=== PATIENT | female | born 1945 | race Caucasian/White ===

== ENCOUNTER → 2016-08-30 | Outpatient (CLI) | payer OTHER ==
[~2016-08-30] MED LIST: ALBUAER9 INH; DICL-201 PO; IBUP-1050 PO; LEVO75TA PO; LISI-461 PO; OXYC-57 PO; SYN75 PO; VNTHFA/IN INH
[2016-08-30 12:37] LABS: BLOOD UREA NITROGEN 6 mg/dl (7-18); BUN/CREATININE RATIO 7.2 (10-20); CARBON DIOXIDE 29 mmol/L (21-32); CHLORIDE 109 mmol/L (98-107); CREATININE 0.78 mg/dl (0.60-1.20); GLUCOSE 125 mg/dl (70-99); POTASSIUM 3.4 mmol/L (3.5-5.1); SODIUM 144 mmol/L (136-145)
[2016-08-30 12:38] LABS: ALT/SGPT 34 U/L (12-78); CALCIUM 8.8 mg/dl (8.5-10.1); CHOLESTEROL 210 mg/dl (0-200); TRIGLYCERIDES 91 mg/dl (0-150); VERY LOW DENSITY LIPOPROT CALC 18 mg/dl
[2016-08-30 12:47] LABS: RATIO 5.1 mcg/mg (0-30.0)
[2016-08-30 12:48] LABS: ALB/GLOB RATIO 0.7 (0.9-2); ALKALINE PHOSPHATASE 133 U/L (45-117); AST/SGOT 46 U/L (15-37); CHOLESTEROL/HDL RATIO 4.7; HDL CHOLESTEROL 45 mg/dl; LDL CHOLESTEROL CALCULATED 147 mg/dl
[2016-08-30 13:57] LABS: ESTIMATED AVERAGE GLUCOSE 154 mg/dl; HA1C FLAG Normal (Normal)
== END | disposition home or self-care (01) ==
LOC: C.LAB 10:55
PROVIDERS: ATTEND Internal Medicine
DX: E11.9 Type 2 diabetes mellitus without complications (principal); E03.9 Hypothyroidism, unspecified; E55.9 Vitamin D deficiency, unspecified

== ENCOUNTER 2016-12-10 14:36 | Emergency (ER) | payer OTHER ==
[~2016-12-10] VITALS: Ht 167.6 cm; Wt 101.3 kg
[~2016-12-10 14:36] MED LIST changes: -IBUP-1050 PO; -OXYC-57 PO; -SYN75 PO; -VNTHFA/IN INH
[2016-12-10 14:43] VITALS: TEMP 36.7; Ht 167.6 cm; Wt 101.3 kg
--- NOTE | 2016-12-10 16:59 | EMERGENCY ROOM VISIT NOTE ---
ED Visit Note First contact with patient: 16:35 I have seen and examined this patient with Hoda Palomo and generally agree with the treatment plan as discussed. Problem List Medical Problems: (1) Asthma Status: Chronic Surgical Problems: (1) History of back surgery Status: Resolved (2) History of cholecystectomy Status: Resolved (3) History of hysterectomy Status: Resolved Current/Historical Medications Scheduled Diclofenac (Voltaren), 75 MG PO BID Levothyroxine Sodium (Synthroid), 75 MCG PO DAILY Lisinopril (Zestril), 10 MG PO DAILY Scheduled PRN Albuterol Sulfate (Proventil Hfa), 1-2 PUFFS INH q4-6h PRN for SOB/Wheezing Allergies Coded Allergies: Adhesives (Verified Allergy, Unknown, TAPE ALLERGY, 02/05/15) Sulfa Antibiotics (Verified Allergy, Unknown, UNKNOWN, 02/05/15) Vital Signs Date Time Temp Pulse Resp B/P (MAP) Pulse Ox O2 Delivery O2 Flow Rate FiO2 12/10/16 14:43 36.7 72 20 212/104 98 Room Air Departure Information Referrals RV. Kaplan MD (PCP) Patient Instructions My [facility]
[2016-12-10] MEDS ORDERED: VNTHFA/IN INH (17:13)
[2016-12-10] MEDS ORDERED: IBUP-1050 PO (17:13)
[2016-12-10] MEDS ORDERED: SYN75 PO (17:13)
--- NOTE | 2016-12-10 17:27 | EMERGENCY ROOM VISIT NOTE ---
History First contact with patient: 16:35 Chief Complaint: SWELLING TO EXTREMITY Stated Complaint: SWELLING TO RT FOOT-FELL ON THURSDAY History of Present Illness The patient is a 71 year old female who presents to the Emergency Room with complaints of left knee pain, right lower leg pain and right ankle pain for approximately last week. The patient had a mechanical fall where she tripped up the steps injuring her left knee and right delong. She also notes swelling to the area since. The patient has a history of bilateral knee replacements. This was many years ago. She sometimes does have issues with her knees giving out. She also reports hitting her right elbow. She denies any symptoms before she fell such as dizziness, lightheadedness, chest pain, heart palpitations or shortness of breath. She has been taking ibuprofen with minimal relief of the pain. The patient did not hit her head during the fall. Review of Systems 10 system review performed and negative unless noted in HPI or below Past Medical/Surgical History Medical Problems: (1) Asthma (2) Hypertension Nos (3) Hypothyroidism Nos (4) Lumbago Surgical Problems: (1) History of back surgery (2) History of cholecystectomy (3) History of hysterectomy Family History Cancer FH: heart disease FHx: gallbladder disease FHx: lung disease Hypertension Social History Smoking Status: Never Smoker Alcohol Use: occasionally Drug Use: none Marital Status: Housing Status: lives alone Occupation Status: employed Current/Historical Medications Scheduled Albuterol Hfa (Ventolin Hfa), 1-2 PUFFS INH Q4 Ibuprofen (Advil), 400 MG PO PRN UD Levothyroxine Sodium (Synthroid), 75 MCG PO DAILY Scheduled PRN Oxycodone/Acetaminophen 5MG/325MG (Percocet 5MG/325MG), 1-2 TABS PO Q4H PRN for Pain Allergies Coded Allergies: Adhesives (Verified Allergy, Unknown, TAPE ALLERGY, 02/05/15) Sulfa Antibiotics (Verified Allergy, Unknown, UNKNOWN, 02/05/15) Physical Exam Vital Signs Date Time Temp Pulse Resp B/P (MAP) Pulse Ox O2 Delivery O2 Flow Rate FiO2 12/10/16 18:59 65 16 165/85 98 Room Air NIBP 12/10/16 17:53 65 16 179/85 98 Room Air 12/10/16 17:13 73 20 166/73 94 Room Air 12/10/16 14:43 36.7 72 20 212/104 98 Room Air Physical Exam VITALS: Vitals are noted on the nurse's note and reviewed by myself. Vital signs stable. GENERAL: 71-year-old female, in no acute distress, nondiaphoretic, well- developed well-nourished. SKIN: The skin was intact HEAD: Normocephalic atraumatic. MUSCULOSKELETAL: RLE: Ecchymosis noted over the proximal right tibia. Tenderness to palpation in that area. Edema noted to the right ankle with diffuse tenderness over the lateral and medial malleoli. No ligamentous instability appreciated. DP pulse intact. Negative Agiula's sign. No significant tenderness over the Achilles. LLE: Mild ecchymosis noted to the left knee. No ligamentous instability appreciated. Negative anterior and posterior drawer. No pain with valgus or varus stress. RUE: Small amount of ecchymosis noted to the right elbow. Full range of motion. NEURO: Patient was alert and oriented to person place and time. Normal sensation to touch. No focal neurological deficits. Medical Decision & Procedures ER Provider Diagnostic Interpretation: Patient Name: LUZ ELENA SUN Unit Number: [id number] Dictated: 12/10/161752 Transcribed: 12/10/161752 SHIELA Printed Date/Time: [~ rep prt dt]/[~ rep prt tm] [~ rep ct labl] - [~ rep ct ivnm] [facility] [place] [address] Dictated: 12/10/161752 Transcribed: 12/10/161752 SHIELA Printed Date/Time: [~ rep prt dt]/[~ rep prt tm] [~ rep ct labl] - [~ rep ct ivnm] Patient: LUZ ELENA SUN Address1: [address] [facility] Rec: [id number] Address2: Acct ID: [id number] [facility] Zip: [place] [address] Date: 1945 Sex: F Room/Bed: Ref Phy: RV. Kaplan MD SC: DREA Att Phy: Report #: [id number] Ping Phy: RV. Kaplan MD Test: TF Admit Phy: Tar Chaser: WEI Interpreting Phy: Graeme Mike MD Diagnosis: SWELLING TO RT FOOT-FELL ON THURSDAY Ordering Phy: Hoda Palomo PA-C Service Date: 12/10/16 Admit Date: 12/10/16 MNE: PWRSCRIBE CONF: DICTATED BY: Graeme Mike MD]] CC: RV. Eusebio, MD Cochran, Jamey Dye, Hoda Nava PA-C Endcc: [~ rep ct add3]] RIGHT TIBIA/FIBULA 2 VIEWS ROUTINE CLINICAL HISTORY: Fall. Right mid delong pain. COMPARISON: None FINDINGS: Alignment of the right knee arthroplasty is anatomic. There is no acute fracture within the right tibia or fibula. IMPRESSION: No acute fracture of the right tibia or fibula. Electronically signed by: Graeme Mike M.D. 12/10/2016 5:59 PM Dictated Date/Time: 12/10/2016 5:53 PM The status of this report is Signed. Draft = Not yet reviewed or approved by Radiologist. Signed = Reviewed and approved by Radiologist. <AttendingPhy></AttendingPhy> <FamilyPhy>RV. Kaplan MD</ FamilyPhy> <PrimaryPhy>RV. Kaplan MD</PrimaryPhy> <UnitNumber> [id number]</UnitNumber> <VisitNumber>[id number]</VisitNumber> <PatientName> LUZ ELENA SUN</PatientName> <DateOfBirth>1945</DateOfBirth> <Location> [facility]</Location> <ServiceDate>12/10/16</ServiceDate> <MNE>ESINDI</MNE> < OrderingPhy>Hoda Palomo PA-C</OrderingPhy> <OrderingPhyMNE>f rep ord dr little< /OrderingPhyMNE> <DictatingPhyMNE>f rep dict dr little</DictatingPhyMNE> <CCListMNE >f rep ct mne</CCListMNE> <AdmittingPhyMNE>f pt admit dr little</AdmittingPhyMNE> < AttendingPhyMNE>f pt attend dr little</AttendingPhyMNE> <ConsultingPhyMNE>f pt consult dr little</ConsultingPhyMNE> <FamilyPhyMNE>f pt fam dr little</FamilyPhyMNE> <OtherPhyMNE>f pt other dr little</OtherPhyMNE> < PrimaryPhyMNE>f pt prim care dr little</PrimaryPhyMNE> <ReferringPhyMNE>f pt referring dr little</ReferringPhyMNE> Patient: LUZ ELENA SUN Address1: [address] [facility] Rec: [id number] Address2: Acct ID: [id number] [facility] Zip: [place] [address] Date: 1945 Sex: F Room/Bed: Ref Phy: RV. Kaplan MD SC: DREA Att Phy: Report #: [id number] Ping Phy: RV. Kaplan MD Test: KN3 Admit Phy: Tar Chaser: WEI Interpreting Phy: Graeme Mike MD Diagnosis: SWELLING TO RT FOOT-FELL ON THURSDAY Ordering Phy: Hoda Palomo PA-C Service Date: 12/10/16 Admit Date: 12/10/16 MNE: PWRSCRIBE CONF: DICTATED BY: Graeme Mike MD]] CC: RV. Eusebio, Jamey Booth, Hoda Nava PA-C Endcc: [~ rep ct add3]] LEFT KNEE 3 VIEWS CLINICAL HISTORY: Left knee pain following fall. COMPARISON: None FINDINGS: Alignment of the total left knee arthroplasty is anatomic. There is no periprosthetic fracture. There is a small left knee joint effusion. IMPRESSION: 1. Status post total left knee arthroplasty. No periprosthetic fracture. 2. Small left knee joint effusion. Electronically signed by: Graeme Mike M.D. 12/10/2016 5:53 PM Dictated Date/Time: 12/10/2016 5:52 PM The status of this report is Signed. Draft = Not yet reviewed or approved by Radiologist. Signed = Reviewed and approved by Radiologist. Patient: LUZ ELENA SUN Address1: [address] [facility] Rec: [id number] Address2: Acct ID: [id number] [facility] Zip: [place] [address] Date: 1945 Sex: F Room/Bed: Ref Phy: RV. Kaplan MD SC: DREA Att Phy: Report #: [id number] Ping Phy: RV. Kaplan MD Test: ANK Admit Phy: Tar Chaser: WEI Interpreting Phy: Graeme Mike MD Diagnosis: SWELLING TO RT FOOT-FELL ON THURSDAY Ordering Phy: Hoda Palomo PA-C Service Date: 12/10/16 Admit Date: 12/10/16 MNE: PWRSCRIBE CONF: DICTATED BY: Graeme Mike MD]] CC: RV. Eusebio, Jamey Booth, Hoda Nava PA-C Endcc: [~ rep ct add3]] RIGHT ANKLE MIN 3 VIEWS ROUTINE CLINICAL HISTORY: Right ankle pain following fall. COMPARISON: None FINDINGS: There is extensive posterior and plantar calcaneal spurring. There is no acute fracture. Irregularity of the fibular tip suggests old injury. There may be an os trigonum. IMPRESSION: No acute fracture or dislocation of the right ankle. Electronically signed by: Graeme Mike M.D. 12/10/2016 6:00 PM Dictated Date/Time: 12/10/2016 5:59 PM The status of this report is Signed. Draft = Not yet reviewed or approved by Radiologist. Signed = Reviewed and approved by Radiologist. <AttendingPhy></AttendingPhy> <FamilyPhy>RV. Kaplan MD</ FamilyPhy> <PrimaryPhy>RV. Kaplan MD</PrimaryPhy> <UnitNumber> [id number]</UnitNumber> <VisitNumber>[id number]</VisitNumber> <PatientName> LUZ ELENA SUN</PatientName> <DateOfBirth>1945</DateOfBirth> <Location> DREA</Location> <ServiceDate>12/10/16</ServiceDate> <MNE>ESINDI</MNE> < OrderingPhy>Hoda Palomo PA-C</OrderingPhy> <OrderingPhyMNE>f rep ord dr little< /OrderingPhyMNE> <DictatingPhyMNE>f rep dict dr little</DictatingPhyMNE> <CCListMNE >f rep ct mne</CCListMNE> <AdmittingPhyMNE>f pt admit dr little</AdmittingPhyMNE> < AttendingPhyMNE>f pt attend dr little</AttendingPhyMNE> Patient: LUZ ELENA SUN Address1: [address] [facility] Rec: [id number] Address2: Acct ID: [id number] [facility] Zip: [place] [address] Date: 1945 Sex: F Room/Bed: Ref Phy: RV. Kaplan MD SC: DREA Att Phy: Report #: [id number] Ping Phy: RV. Kaplan MD Test: ELB Admit Phy: Tar Chaser: WEI Interpreting Phy: Graeme Mike MD Diagnosis: SWELLING TO RT FOOT-FELL ON THURSDAY Ordering Phy: Hoda Palomo PA-C Service Date: 12/10/16 Admit Date: 12/10/16 MNE: PWRSCRIBE CONF: DICTATED BY: Graeme Mike MD]] CC: RV. Eusebio, Jamey Booth MD Urban, Angela P., PA-C Endcc: [~ rep ct add3]] RIGHT ELBOW MIN 3 VIEWS ROUTINE CLINICAL HISTORY: Right elbow pain following fall. COMPARISON: None FINDINGS: Alignment of the right elbow is anatomic. No acute fracture or joint effusion is identified. There is mild soft tissue swelling overlying the olecranon. IMPRESSION: No acute fracture or joint effusion of the right elbow. Electronically signed by: Graeme Mike M.D. 12/10/2016 6:00 PM Dictated Date/Time: 12/10/2016 6:00 PM The status of this report is Signed. Draft = Not yet reviewed or approved by Radiologist. Signed = Reviewed and approved by Radiologist. <AttendingPhy></AttendingPhy> <FamilyPhy>RV. Kaplan MD</ FamilyPhy> <PrimaryPhy>RV. Kaplan MD</PrimaryPhy> <UnitNumber> [id number]</UnitNumber> <VisitNumber>[id number]</VisitNumber ED Course Patient was seen and examined Labs were obtained, and a saline lock was established Vital signs were reviewed. BP was noted to be elevated. The patient was notified of her elevated blood pressure. She was instructed to follow-up with her primary care physician to have this rechecked. The findings of the imaging study were discussed. They voiced understanding. They were offered a walker, knee immobilizer and Kyle bandage. They confirmed that they have a walker and knee immobilizer at home. The right ankle was bandaged for comfort. The patient ambulated without difficulty prior to discharge. I reviewed discharge instructions the patient. They voiced understanding and had no further questions. Medical Decision Differential diagnosis: Hematoma, ecchymosis, contusion, fracture, ligament injury, DVT This patient is a pleasant 71-year-old female that presented to the emergency department with complaints of left knee pain, right lower leg pain and right ankle pain. She did also complain of swelling in the right ankle. She suffered a mechanical fall. On exam, she did have some tenderness and limited range of motion with the left knee. She also had edema and tenderness over the right ankle. She had ecchymosis present over the mid right delong. The elbow was also x-rayed because she was complaining of pain over the olecranon process. All of her imaging was negative for fracture. She did however have a small left knee effusion. It was recommended that she immobilize the knee, and ambulate with a walker and follow-up with orthopedics (especially given her history of knee replacement). The patient is in agreement with this plan. She will use her knee immobilizer at home in addition to her walker. As noted above , the right ankle was placed in an Kyle bandage. She was given a short course of Percocet for the pain. She was also instructed to apply ice and elevate particularly the right ankle. She agrees to return to the emergency department with any new or worsening symptoms. This chart was completed in part utilizing [employer] Speech Voice Recognition software. Attempts were made to minimize the grammatical errors, random word insertions, pronoun errors and incomplete sentences. Any formal questions or concerns about the content, text or information contained within the body of this dictation should be directly addressed to the provider for clarification. Impression Primary Impression: Knee injury Additional Impressions: Ankle sprain Contusion of leg Departure Information Prescriptions Oxycodone/Acetaminophen 5MG/325MG (PERCOCET 5MG/325MG) Tab 1-2 TABS PO Q4H Y for Pain, #15 TAB Prov: Hoda Palomo PA-C 12/10/16 Referrals RV. Kaplan MD (PCP) Patient Instructions My [facility] Problem Qualifiers
--- NOTE | 2016-12-10 17:54 | DIAGNOSTIC IMAGING REPORT ---
LEFT KNEE 3 VIEWS CLINICAL HISTORY: Left knee pain following fall. COMPARISON: None FINDINGS: Alignment of the total left knee arthroplasty is anatomic. There is no periprosthetic fracture. There is a small left knee joint effusion. IMPRESSION: 1. Status post total left knee arthroplasty. No periprosthetic fracture. 2. Small left knee joint effusion. Electronically signed by: Graeme Mike M.D. 12/10/2016 5:53 PM Dictated Date/Time: 12/10/2016 5:52 PM
--- NOTE | 2016-12-10 18:00 | DIAGNOSTIC IMAGING REPORT ---
RIGHT TIBIA/FIBULA 2 VIEWS ROUTINE CLINICAL HISTORY: Fall. Right mid delong pain. COMPARISON: None FINDINGS: Alignment of the right knee arthroplasty is anatomic. There is no acute fracture within the right tibia or fibula. IMPRESSION: No acute fracture of the right tibia or fibula. Electronically signed by: Graeme Mike M.D. 12/10/2016 5:59 PM Dictated Date/Time: 12/10/2016 5:53 PM
--- NOTE | 2016-12-10 18:01 | DIAGNOSTIC IMAGING REPORT ---
RIGHT ANKLE MIN 3 VIEWS ROUTINE CLINICAL HISTORY: Right ankle pain following fall. COMPARISON: None FINDINGS: There is extensive posterior and plantar calcaneal spurring. There is no acute fracture. Irregularity of the fibular tip suggests old injury. There may be an os trigonum. IMPRESSION: No acute fracture or dislocation of the right ankle. Electronically signed by: Graeme Mike M.D. 12/10/2016 6:00 PM Dictated Date/Time: 12/10/2016 5:59 PM
--- NOTE | 2016-12-10 18:02 | DIAGNOSTIC IMAGING REPORT ---
RIGHT ELBOW MIN 3 VIEWS ROUTINE CLINICAL HISTORY: Right elbow pain following fall. COMPARISON: None FINDINGS: Alignment of the right elbow is anatomic. No acute fracture or joint effusion is identified. There is mild soft tissue swelling overlying the olecranon. IMPRESSION: No acute fracture or joint effusion of the right elbow. Electronically signed by: Graeme Mike M.D. 12/10/2016 6:00 PM Dictated Date/Time: 12/10/2016 6:00 PM
[2016-12-10 18:59] VITALS: BP 165/85; PULSE 65; O2SAT 98
[2016-12-10] MEDS ORDERED: OXYC-57 PO (19:09)
== END 2016-12-10 19:21 | disposition home or self-care (01) ==
LOC: C.EDB 14:42 → C.EDA 19:21
DX: S89.92XA Unspecified injury of left lower leg, initial encounter (principal); S93.401A Sprain of unspecified ligament of right ankle, initial encounter; S80.11XA Contusion of right lower leg, initial encounter; W10.9XXA Fall (on) (from) unspecified stairs and steps, initial encounter; Z96.653 Presence of artificial knee joint, bilateral; J45.909 Unspecified asthma, uncomplicated; I10 Essential (primary) hypertension; E03.9 Hypothyroidism, unspecified; Z90.710 Acquired absence of both cervix and uterus; Z90.49 Acquired absence of other specified parts of digestive tract; Z98.890 Other specified postprocedural states; Z82.49 Family history of ischemic heart disease and other diseases of the circulatory system; Z79.899 Other long term (current) drug therapy

== ENCOUNTER → 2017-01-08 | Outpatient (CLI) | payer OTHER ==
[~2017-01-08] MED LIST changes: -ALBUAER9 INH; -DICL-201 PO; +IBUP-1050 PO; -LISI-461 PO; +OXYC-57 PO; +VNTHFA/IN INH
[2017-01-08 12:22] LABS: ESTIMATED AVERAGE GLUCOSE 148 mg/dl; HA1C FLAG Normal (Normal)
[2017-01-08 12:25] LABS: ALT/SGPT 33 U/L (12-78); AST/SGOT 33 U/L (15-37); BLOOD UREA NITROGEN 8 mg/dl (7-18); CALCIUM 8.5 mg/dl (8.5-10.1); CARBON DIOXIDE 26 mmol/L (21-32); CHLORIDE 111 mmol/L (98-107); CREATININE 0.75 mg/dl (0.60-1.20); GLUCOSE 115 mg/dl (70-99); POTASSIUM 3.5 mmol/L (3.5-5.1); SODIUM 143 mmol/L (136-145); TRIGLYCERIDES 92 mg/dl (0-150); VERY LOW DENSITY LIPOPROT CALC 18 mg/dl
[2017-01-08 12:36] LABS: ALB/GLOB RATIO 0.8 (0.9-2); ALKALINE PHOSPHATASE 117 U/L (45-117); CHOLESTEROL 175 mg/dl (0-200); CHOLESTEROL/HDL RATIO 4.1; HDL CHOLESTEROL 43 mg/dl; LDL CHOLESTEROL CALCULATED 114 mg/dl
[2017-01-08 13:26] LABS: URINE APPEARANCE CLEAR (CLEAR); URINE BILIRUBIN NEG (NEG); URINE COLOR YELLOW; URINE EPITHELIAL CELL AUTO >30 /lpf (0-5); URINE NITRITE NEG (NEG); URINE PH 5.5 (4.5-7.5); URINE SPECIFIC GRAVITY 1.015 (1.000-1.030); UROBILINOGEN NEG (NEG); ZZUR CULT IF INDIC CLEAN CATCH YES
[2017-01-08 13:31] LABS: MANUAL MICROSCOPIC REQUIRED? NO; REVIEW REQ? NO
== END | disposition home or self-care (01) ==
LOC: C.LAB1850 10:45
PROVIDERS: ATTEND Internal Medicine
DX: E11.9 Type 2 diabetes mellitus without complications (principal); E55.9 Vitamin D deficiency, unspecified; E03.9 Hypothyroidism, unspecified

== ENCOUNTER → 2017-01-24 | Outpatient (CLI) | payer OTHER ==
[2017-01-24 15:09] LABS: URINE APPEARANCE CLEAR (CLEAR); URINE BILIRUBIN NEG (NEG); URINE COLOR YELLOW; URINE EPITHELIAL CELL AUTO >30 /lpf (0-5); URINE NITRITE NEG (NEG); URINE SPECIFIC GRAVITY 1.011 (1.000-1.030); UROBILINOGEN NEG (NEG); ZZUR CULT IF INDIC CLEAN CATCH NO
[2017-01-24 15:19] LABS: MANUAL MICROSCOPIC REQUIRED? NO; REVIEW REQ? NO
== END | disposition home or self-care (01) ==
LOC: C.LAB 13:50
PROVIDERS: ATTEND Internal Medicine
DX: N39.0 Urinary tract infection, site not specified (principal)

== ENCOUNTER 2017-03-19 09:28 | Emergency (ER) | payer OTHER ==
[~2017-03-19] VITALS: Ht 167.6 cm; Wt 102.5 kg
[2017-03-19 09:35] VITALS: TEMP 36.9; Ht 167.6 cm; Wt 102.5 kg
[2017-03-19] MEDS ORDERED: OXYC-57 PO ×2 (10:08→10:52)
--- NOTE | 2017-03-19 10:34 | EMERGENCY ROOM VISIT NOTE ---
History Report prepared by Jasiel: Bridgette Hurtado Under the Supervision of: Dr. Jamey Cochran M.D. First contact with patient: 09:43 Chief Complaint: ANKLE PAIN Stated Complaint: RIGHT ANKLE PAIN History of Present Illness The patient is a 71 year old female who presents to the Emergency Room with complaints of constant right ankle pain secondary to fall occurring 3 months ago. The patient tripped going up the stairs in December. She has had pain in the back of her right ankle since this incident. She states that her ankle, "just throbs." She has been walking on this foot and reports that walking seems to exacerbate her pain. The patient rates her pain as a 4/10 in severity. Source of History: patient Onset: 3 months ago Position: ankle (right) Symptom Intensity: 4/10 Quality: other (throbbing) Timing: constant Modifying Factors (Worsening): other (walking) Review of Systems See HPI for pertinent positives & negatives. A total of 10 systems reviewed and were otherwise negative. Past Medical & Surgical Medical Problems: (1) Asthma (2) Hypertension Nos (3) Hypothyroidism Nos (4) Lumbago Surgical Problems: (1) History of back surgery (2) History of cholecystectomy (3) History of hysterectomy Family History Cancer FH: heart disease FHx: gallbladder disease FHx: lung disease Hypertension Social History Smoking Status: Never Smoker Alcohol Use: occasionally Drug Use: none Marital Status: Housing Status: lives alone Occupation Status: employed Current/Historical Medications Scheduled Albuterol Hfa (Ventolin Hfa), 1-2 PUFFS INH Q4 Ibuprofen (Advil), 400 MG PO PRN UD Levothyroxine Sodium (Synthroid), 75 MCG PO DAILY Scheduled PRN Oxycodone/Acetaminophen 5MG/325MG (Percocet 5MG/325MG), 1-2 TABLETS PO Q4H PRN for Pain Oxycodone/Acetaminophen 5MG/325MG (Percocet 5MG/325MG), 1-2 TAB PO Q4H PRN for Pain Allergies Coded Allergies: Adhesives (Verified Allergy, Unknown, TAPE ALLERGY, 03/19/17) Sulfa Antibiotics (Verified Allergy, Unknown, UNKNOWN, 03/19/17) RED SWOLLEN LEGS Physical Exam Vital Signs Date Time Temp Pulse Resp B/P (MAP) Pulse Ox O2 Delivery O2 Flow Rate FiO2 03/19/17 11:24 81 20 186/78 95 03/19/17 10:28 190/70 03/19/17 09:35 36.9 77 20 204/109 94 Room Air Physical Exam GENERAL: Patient is a healthy-appearing well-nourished 71 year old female. HEAD: Normocephalic atraumatic EYES: Ocular movements intact pupils equal and react to light OROPHARYNX mucous membranes are moist no exudates present no erythema or edema present NECK: Supple no nuchal rigidity CHEST: Good equal expansion LUNGS: Clear and equal to auscultation CARDIAC: Normal S1 and S2 ABDOMEN: Soft nontender no guarding BACK: No CVA tenderness EXTREMITIES: No outright evidence of swelling to the right foot. Right foot is NVI, no evidence of cellulitis. NEURO: Patient is following commands and answering questions appropriately. Alert and oriented x3 Cranial Nerves 2-12 grossly intact Medical Decision & Procedures ER Provider Diagnostic Interpretation: Radiology results as stated below per my review and radiologist interpretation: RIGHT ANKLE 3 VIEWS CLINICAL HISTORY: Right ankle pain. FINDINGS: 3 views of the right ankle are compared to study dated 12/10/2016. The skeletal structures are osteopenic. No fracture is seen. The ankle mortise is intact. There are large dorsal and plantar calcaneal enthesophytes. Degenerative spurring is seen along the dorsal aspect of the tarsal bones. There is no significant joint effusion. Mild soft tissue swelling is suggested around the ankle. IMPRESSION: 1. Mild soft tissue swelling with no radiographic evidence of right ankle fracture. 2. Osteopenia, degenerative change, and large heel spurs as above. Electronically signed by: Meng Harper M.D. 03/19/2017 10:38 AM Dictated Date/Time: 03/19/2017 10:37 AM ED Course 0943: Past medical records reviewed. The patient was evaluated in room B9. A complete history and physical examination was performed. 1048: I reassessed the patient at this time. She is feeling better and resting comfortably. I discussed the results and treatment plan with the patient. I answered all pertaining questions that she had. She expressed understanding and verbalized agreement. The patient will be discharged home. Medical Decision Differential diagnosis: Etiologies such as fracture, dislocation, neurovascular compromise, compartment syndrome, soft tissue injury, as well as others were entertained. This is a 71-year-old female who presents emergency department complaining of right ankle pain. The patient is actually tender at the Achilles tendon and appears to have trouble flexing her foot. Based on this I'm concerned the patient may have partial tear of the tendon. I recommended she be placed in a walking boot and use crutches. I also strongly recommended she follow-up with orthopedics as the pain is been on going for 3 weeks. She is requesting pain medication therefore she was given ibuprofen and I will continue her on Percocet. Patient was in agreement with the treatment plan. Medication Reconcilliation Current Medication List: was personally reviewed by me Blood Pressure Screening Patient's blood pressure: Elevated blood pressure Blood pressure disposition: Referred to PCP Impression Primary Impression: Right ankle pain Scribe Attestation The scribe's documentation has been prepared under my direction and personally reviewed by me in its entirety. I confirm that the note above accurately reflects all work, treatment, procedures, and medical decision making performed by me. Departure Information Dispostion Home / Self-Care Prescriptions Oxycodone/Acetaminophen 5MG/325MG (PERCOCET 5MG/325MG) Tab 1-2 TAB PO Q4H Y for Pain, #14 TAB Prov: Jamey Cochran MD 03/19/17 Referrals No Doctor, Assigned (PCP) RV. Kaplan MD Martin, James S., M.D. Forms HOME CARE DOCUMENTATION FORM, IMPORTANT VISIT INFORMATION Patient Instructions Ankle Sprain, ED Crutch Walking, ED RICE, [facility] Additional Instructions Follow up with DR Cain's office You were found to have an elevated blood pressure today (>120 sytolic or >90 diastolic). Per medicare guidelines, you need to follow up with this blood pressure screening with your Primary Care Physician (PCP). For a new PCP call [phone]. You received narcotic or benzodiazepene medication while in the emergency room today. This is an addictive medication that may cause drowziness as well as constipation. Do not drive, operate heavy machinery, or drink alcohol under the influence of this medication. Take 600 mg Ibuprofen every 6 hours Take Percocet for breakthrough pain You have been examined and treated today on an emergency basis only. This is not a substitute for, or an effort to provide, complete comprehensive medical care. It is impossible to recognize and treat all injuries or illnesses in a single emergency department visit. It is therefore important that you follow up closely with your PCP. Call as soon as possible for an appointment. Thank you for your time and consideration. I look forward to speaking with you again soon. Please don't hesitate to call us if you have any questions. Problem Qualifiers Primary Impression: Right ankle pain Chronicity: acute Qualified Codes: M25.571 - Pain in right ankle and joints of right foot
--- NOTE | 2017-03-19 10:40 | DIAGNOSTIC IMAGING REPORT ---
RIGHT ANKLE 3 VIEWS CLINICAL HISTORY: Right ankle pain. FINDINGS: 3 views of the right ankle are compared to study dated 12/10/2016. The skeletal structures are osteopenic. No fracture is seen. The ankle mortise is intact. There are large dorsal and plantar calcaneal enthesophytes. Degenerative spurring is seen along the dorsal aspect of the tarsal bones. There is no significant joint effusion. Mild soft tissue swelling is suggested around the ankle. IMPRESSION: 1. Mild soft tissue swelling with no radiographic evidence of right ankle fracture. 2. Osteopenia, degenerative change, and large heel spurs as above. Electronically signed by: Meng Harper M.D. 03/19/2017 10:38 AM Dictated Date/Time: 03/19/2017 10:37 AM
[2017-03-19 11:24] VITALS: BP 186/78; PULSE 81; O2SAT 95
== END 2017-03-19 11:26 | disposition home or self-care (01) ==
LOC: C.EDB 09:29
DX: M25.571 Pain in right ankle and joints of right foot (principal); I10 Essential (primary) hypertension; E03.9 Hypothyroidism, unspecified; J45.909 Unspecified asthma, uncomplicated; Z90.710 Acquired absence of both cervix and uterus; Z90.49 Acquired absence of other specified parts of digestive tract; Z88.2 Allergy status to sulfonamides; Z91.09 Other allergy status, other than to drugs and biological substances; Z80.9 Family history of malignant neoplasm, unspecified; Z82.49 Family history of ischemic heart disease and other diseases of the circulatory system; Z83.79 Family history of other diseases of the digestive system

== ENCOUNTER → 2017-06-02 | Outpatient (CLI) | payer OTHER ==
--- NOTE | 2017-06-02 15:30 | MAMMOGRAPHY REPORT ---
BILATERAL DIGITAL DIAGNOSTIC MAMMOGRAM TOMOSYNTHESIS WITH CAD AND TARGETED BILATERAL ULTRASOUND: 05/09 CLINICAL HISTORY: 71-year-old woman presents with a two-month history of a lump in the upper inner qu adrant of the right breast, which has now become painful and she describes it as sharp or stabbing pa in. No skin thickening, erythema or nipple discharge. Due for bilateral screening mammography. TECHNIQUE: Bilateral breast tomosynthesis in addition to standard 2D mammography was performed. Curre nt study was also evaluated with a Computer Aided Detection (CAD) system. COMPARISON: Comparison is made to exams dated: 08/10/2015 mammogram - [facility], mammogram, 06/28/2012 mammogram, and 07/08/2012 mammogram - [facility]. BREAST COMPOSITION: There are scattered areas of fibroglandular density in both breasts. FINDINGS: A triangular palpable marker was placed on the skin of the upper inner quadrant of the righ t breast, denoting the palpable lump pointed out by the patient. No obvious mass, asymmetry or area of architectural distortion is seen in the area of palpable concern or elsewhere throughout the remai nder of the right breast. There is a stable focal asymmetry in the upper outer posterior right breas t, which appears similar on all available prior mammograms dating back to at least 07/08/2012, theref ore likely benign. The glandular pattern of the left breast is stable comparing to prior mammograms. There are scattere d benign rounded rim calcifications. In the superior middle one third of the left breast on the MLO tomosynthesis images, there is a possible 8mm nodular asymmetry for which further evaluation with ult rasound was performed. No other suspicious masses, microcalcifications, asymmetries or areas of arch itectural distortion are seen in the left breast. Targeted ultrasound was performed in the area of palpable lump pointed out by the patient, within the 1:30 right breast, 8 cm from the nipple. On palpation, there is a soft 1-2 cm mobile mass. On ultr asound, there is a prominent oval parallel subdermal fat lobule which could represent a normal fat lo bule or a benign mass such as a lipoma. It measures 20.8 x 7.5 x 22.0 mm. No suspicious solid or cy stic mass is seen in the area of palpable concern. Within the left breast, numerous scattered benign cysts and duct ectasia is seen. In particular, there is a benign anechoic simple cyst in the 2:00 l eft breast, 7 cm from the nipple, measuring 5.2 x 3.1 x 4.5 mm. Other prominent areas of focal duct ectasia are seen in the 12:00 left breast and 1:00 left breast, 5 cm from the nipple. No suspicious solid mass is seen in the superior left breast in the area of nodular asymmetry seen mammographically . This most likely represented normal overlapping tissue and fibrocystic change and is considered be nign. IMPRESSION: ACR BI-RADS CATEGORY 2: BENIGN, TARGETED ULTRASOUND ACR BI-RADS CATEGORY 2: BENIGN 1. No suspicious mammographic or targeted sonographic abnormality to explain the lump and pain in th e 1:30 right breast. There is a possible benign lipoma identified on ultrasound, which may Adair re presents a normal prominent fat lobule. Clinical follow-up is therefore recommended, as biopsy of a clinically suspicious mass should not be precluded by negative imaging. 2. A nodular asymmetry in the superior left breast on the MLO tomosynthesis images has no suspicious sonographic correlate and the parenchymal pattern on the 2-D views is similar dating back to 2012, s uggesting benignity. This most likely represented a combination of fibrocystic change and normal ove rlapping tissue. 3. These results and recommendations were discussed with the patient and her granddaughter at the ti me of the exam. Routine screening tomosynthesis mammography is recommended in one year. Approximately 10% of breast cancers are not detected with mammography. A negative mammographic report should not delay biopsy if a clinically suggestive mass is present. Brigitte Bourne M.D. ay/:06/02/2017 11:57:35 Sheet Sorter: Chacha RUSSELL)(Sukhwinder), [facility] letter sent: Normal 1/2 BI-RADS Code: ACR BI-RADS Category 2: Benign Ultrasound BI-RADS: ACR BI-RADS Category 2: Benign
== END | disposition home or self-care (01) ==
LOC: C.MAMM 10:33
PROVIDERS: ATTEND Physician Assistant
DX: N63.12 Unspecified lump in the right breast, upper inner quadrant (principal); N64.4 Mastodynia; N64.89 Other specified disorders of breast

== ENCOUNTER → 2017-07-10 | Outpatient (CLI) | payer OTHER ==
[~2017-07-10] MED LIST changes: +OPTIRAY 320 IV PRN
--- NOTE | 2017-07-10 15:25 | DIAGNOSTIC IMAGING REPORT ---
CT ANGIOGRAPHY OF THE CHEST, PULMONARY EMBOLUS PROTOCOL CLINICAL HISTORY: SOB ON EXERTION, R/O PE COMPARISON STUDY: Chest CT December 07, 2014 and chest radiograph performed earlier today. TECHNIQUE: Following IV administration of 95 mL of Optiray-320, helical axial images of the chest were obtained utilizing the pulmonary embolus protocol. Maximal intensity projections and sagittal and coronal reformats were viewed on an independent 3D workstation. IV contrast was administered without complication. A dose lowering technique was utilized adhering to the principles of ALARA. CT DOSE: 546.14 mGycm FINDINGS: No pulmonary emboli are identified. There is no evidence for thoracic aortic dissection. The heart is mildly enlarged. There is no pericardial effusion. No enlarged thoracic lymph nodes are present. No pneumothorax or pleural effusion is noted. There is no consolidation to suggest pneumonia. No suspicious osseous lesions are present. There is no pneumomediastinum. Visualized portions of the upper abdomen demonstrate enlargement of the lateral segment of the liver. Possible collaterals within the bailey hepatis are noted. IMPRESSION: 1. No pulmonary emboli identified. 2. No acute intrathoracic findings. 3. Mild cardiomegaly. Electronically signed by: Graeme Mike M.D. 07/10/2017 3:23 PM Dictated Date/Time: 07/10/2017 3:16 PM
== END | disposition home or self-care (01) ==
LOC: C.CTS 14:36
PROVIDERS: ATTEND Internal Medicine
DX: Z00.00 Encounter for general adult medical examination without abnormal findings (principal); M79.89 Other specified soft tissue disorders; R06.02 Shortness of breath; R07.89 Other chest pain; Z84.89 Family history of other specified conditions

== ENCOUNTER → 2017-07-10 | Outpatient (CLI) | payer OTHER ==
[~2017-07-10] MED LIST changes: -OPTIRAY 320 IV PRN
--- NOTE | 2017-07-10 10:10 | DIAGNOSTIC IMAGING REPORT ---
CHEST 2 VIEWS ROUTINE HISTORY: R07.89 Chest discomfort [id number] COMPARISON: Chest 02/06/2015. FINDINGS: The lungs are clear. Cardiac silhouette is normal in size. No pleural effusions. No pneumothorax. IMPRESSION: No acute process. Electronically signed by: Randy Cardoso M.D. 07/10/2017 10:09 AM Dictated Date/Time: 07/10/2017 10:06 AM
[2017-07-10 10:44] LABS: CREATININE RANDOM URINE 72.9 mg/dl
[2017-07-10 10:45] LABS: ALBUMIN 3.3 gm/dl (3.4-5.0); ALT/SGPT 31 U/L (12-78); AST/SGOT 35 U/L (15-37); BLOOD UREA NITROGEN 6 mg/dl (7-18); CALCIUM 8.5 mg/dl (8.5-10.1); CARBON DIOXIDE 27 mmol/L (21-32); CREATININE 0.81 mg/dl (0.60-1.20); GLUCOSE 134 mg/dl (70-99); POTASSIUM 3.4 mmol/L (3.5-5.1); SODIUM 143 mmol/L (136-145)
[2017-07-10 10:56] LABS: ALKALINE PHOSPHATASE 111 U/L (45-117); TOTAL PROTEIN 7.3 gm/dl (6.4-8.2)
== END | disposition home or self-care (01) ==
LOC: C.RAD1850 09:34 → EDSTATUS 09:37 → C.RAD1850 09:38
PROVIDERS: ATTEND Internal Medicine
DX: E11.9 Type 2 diabetes mellitus without complications (principal); E55.9 Vitamin D deficiency, unspecified; R07.89 Other chest pain

== ENCOUNTER → 2017-07-12 | Outpatient (CLI) | payer OTHER | END | disposition home or self-care (01) | LOC: C.LAB 11:38 | PROVIDERS: ATTEND Internal Medicine | DX: E11.9 Type 2 diabetes mellitus without complications (principal) ==

== ENCOUNTER → 2018-01-06 | Outpatient (CLI) | payer OTHER ==
[2018-01-06 14:00] LABS: ALBUMIN 3.3 gm/dl (3.4-5.0); ALKALINE PHOSPHATASE 105 U/L (45-117); ALT/SGPT 39 U/L (12-78); AST/SGOT 59 U/L (15-37); BLOOD UREA NITROGEN 6 mg/dl (7-18); CALCIUM 8.9 mg/dl (8.5-10.1); CARBON DIOXIDE 27 mmol/L (21-32); CREATININE 0.76 mg/dl (0.60-1.20); GLUCOSE 120 mg/dl (70-99); POTASSIUM 3.6 mmol/L (3.5-5.1); SODIUM 142 mmol/L (136-145); TOTAL PROTEIN 7.2 gm/dl (6.4-8.2)
[2018-01-06 14:01] LABS: HEMOGLOBIN A1C 6.6 % (4.5-5.6)
== END | disposition home or self-care (01) ==
LOC: C.LAB1850 12:13
PROVIDERS: ATTEND Internal Medicine
DX: E55.9 Vitamin D deficiency, unspecified (principal); E53.8 Deficiency of other specified B group vitamins; E11.9 Type 2 diabetes mellitus without complications

== ENCOUNTER 2019-10-06 08:59 | Observation (INO) ==
[2019-10-06] MEDS ORDERED: ONDANSETRON INJ 2 MG/ML 2 ML VIAL IV STA (09:42)
[2019-10-06] MEDS ORDERED: MECLIZINE HCL 25 MG TAB PO STA (09:42)
[2019-10-06 09:49] LABS: Basophils # (auto) 0.03 K/uL (0-0.2); Basophils % (auto) 0.4 %; Eosinophils # (auto) 0.18 K/uL (0-0.5); Eosinophils % (auto) 2.2 %; Hematocrit (blood only) 43.9 % (37-47); Immature Granulocytes # (auto) 0.01 K/uL (0.00-0.02); Immature Granulocytes % (auto) 0.1 %; Lymphocytes # (auto) 2.36 K/uL (1.2-3.4); Lymphocytes % (auto) 28.9 %; Mean Corpuscular Hemoglobin 33.2 pg (25-34); Mean Corpuscular Hgb Conc 34.2 g/dL (32-36); Mean Corpuscular Volume 97.1 fL (80-100); Mean Platelet Volume 9.5 fL (7.4-10.4); Monocytes # (auto) 0.53 K/uL (0.11-0.59); Monocytes % (auto) 6.5 %; Neutrophils # (auto) 5.05 K/uL (1.4-6.5); Neutrophils % (auto) 61.9 %; Platelet Count 305 K/uL (130-400); RDW Coefficient of Variation 13.5 % (11.5-14.5); RDW Standard Deviation 48.1 fL (36.4-46.3); Red Blood Count 4.52 M/uL (4.2-5.4); White Blood Count 8.16 K/uL (4.8-10.8)
[2019-10-06 09:56] LABS: iSTAT Creatinine 0.6 mg/dl (0.6-1.3); iSTAT Hemoglobin 14.6 g/dl (12.0-16.0); iSTAT Ionized Calcium 1.11 mmol/l (1.12-1.32); iSTAT Potassium 3.8 mmol/L (3.3-5.0)
--- NOTE | 2019-10-06 10:03 | Emergency Department Note ---
History of Present Illness General Chief complaint: Fall Stated complaint: FALLS,DIZZINESS,BILAT KNEE SURG FELL ONTO KNEES Time Seen by Provider: 10/06/19 09:14 Source: patient, RN notes reviewed and old records reviewed Mode of arrival: ambulatory Limitations: no limitations History of Present Illness Provider complaint: multiple falls Onset (ago): month(s) 1 Location: head Radiation: non-radiation Severity: moderate Pain Consistency: + constant Maximum Pain Intensity: 6 Current Pain Intensity: 6 Quality: + aching Relieved By: + immobilization Exacerbated By: + movement Associated symptoms: + other (dizziness); no fever/chills, no seizure and no weakness Treatments prior to arrival: none This is a 74-year-old female who presents emergency department complaining of multiple falls over the past several days. The patient is complaining of right hip pain as well as left arm pain. The patient reports she has been dizzy for the past year and a half. She reports that she will be walking across the street and the dizziness will just hit her out of nowhere. She reports that the dizziness does not seem to be related to position but it is always when she is walking. The patient denies hitting her head she is complaining of right hip pain after landing on it 3 days ago and left arm pain after falling on it yesterday. The patient lives at home with her grandson who is moving out this weekend. The family is concerned that the patient is going to fall on her own. Home Medications Home Medications Medication Instructions Recorded Confirmed Type albuterol sulfate 90 mcg/actuation 1 - 2 puffs INH Q4H PRN gm 03/06/19 10/06/19 History aerosol inhaler cholecalciferol (vitamin D3) 1,250 50,000 units PO WEEKLY #4 cap 03/18/19 10/06/19 Rx mcg (50,000 unit) capsule levothyroxine [Synthroid] 75 mcg PO QAM 07/28/19 10/06/19 History prednisone 2.5 mg PO QAM 07/28/19 10/06/19 History Allergies Allergy/AdvReac Type Severity Reaction Status Date / Time Sulfa (Sulfonamide Allergy Intermediate Hives Verified 07/28/19 15:36 Antibiotics) adhesive Allergy Mild "rips skin Verified 07/28/19 15:36 off" hydroxychloroquine Allergy Mild vomiting Verified 07/28/19 15:36 lisinopril Allergy Mild Cough Verified 07/28/19 15:36 Past Med/Surg History Medical History Asthma allergy induced--inhaler prn Chronic back pain Degenerative disc disease Dyslipidemia (Acute) Generalized osteoarthritis of multiple sites (Acute) History of colon polyps Hyperplastic colon polyp Hypothyroidism Liver mass hx of, [place] [facility] [place] Nausea and vomiting after administration of anesthetic agent Osteoarthritis Osteopenia (Acute) Spinal stenosis Vitamin B12 deficiency (Acute) Vitamin D deficiency (Acute) Surgical History History of ankle surgery right History of arthroscopy of left knee History of arthroscopy of right knee History of bilateral cataract extraction History of dilatation and curettage x2 History of lumbar discectomy History of lumbar spinal fusion History of open reduction and internal fixation (ORIF) procedure right wrist--hardware in place History of surgery of liver 2014 [place] [facility] [place] History of total hysterectomy with bilateral salpingo-oophorectomy (BSO) S/P cholecystectomy S/P colonoscopic polypectomy S/P knee surgery bilateral knee replacement. 1997 Dr. 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 Beliefs That Will Affect Care: None marital status: / Current Living Situation: Family Current Living Situation Comment: Lives with grandson Other Information That Helps Us Care for You: No other: is ; 3 children Feels Safe at Home: Yes Safety Concerns: Feels Safe At This Time Smoking Status: Never smoker Tobacco Type: cigarettes ; Age Started Using Tobacco: 16 ; Age Quit Using Tobacco: 16 ; Do You Dip or Chew Tobacco: No ; Second Hand Exposure: Yes (parents smoked) ; Tobacco Cessation Education Requested by Patient: No Hx Alcohol Use: Yes Alcohol type: beer Alcohol Intake Frequency: Daily Hx Substance Use: No Childhood Exposure to Second-Hand Smoke: Yes Seatbelt Use: always Sunscreen Use: Yes Review of Systems A total of 10 systems reviewed and were otherwise negative Physical Exam Vital Signs Vital Signs - 24 hr 10/06/19 09:08 10/06/19 09:31 10/06/19 10:01 Temperature 36.5 C Temperature Source Oral Pulse Rate - Lying Pulse Rate - Sitting Pulse Rate - Standing Pulse Rate 67 80 82 Pulse Rate from SpO2 Sensor 77 Respiratory Rate 16 20 17 Respiratory Effort / Characteristics Non-Labored Respiratory Depth Normal Blood Pressure - Lying Blood Pressure - Sitting Blood Pressure- Standing Blood Pressure 198/83 H 177/86 H 177/118 H Blood Pressure Mean 121 135 135 Blood Pressure Position Sitting Pulse Oximetry 97 96 Oxygen Delivery Method Room Air Sepsis Action Taken by Nursing No Action Required 10/06/19 10:32 10/06/19 10:35 10/06/19 10:36 Temperature Temperature Source Pulse Rate - Lying Pulse Rate - Sitting Pulse Rate - Standing Pulse Rate 90 92 H 80 Pulse Rate from SpO2 Sensor 89 97 H 90 Respiratory Rate 20 13 19 Respiratory Effort / Characteristics Respiratory Depth Blood Pressure - Lying Blood Pressure - Sitting Blood Pressure- Standing Blood Pressure 186/128 H Blood Pressure Mean 146 Blood Pressure Position Pulse Oximetry 94 96 96 Oxygen Delivery Method Sepsis Action Taken by Nursing 10/06/19 11:16 10/06/19 11:18 10/06/19 11:30 Temperature Temperature Source Pulse Rate - Lying Pulse Rate - Sitting Pulse Rate - Standing Pulse Rate 86 82 88 Pulse Rate from SpO2 Sensor 84 89 Respiratory Rate 14 12 14 Respiratory Effort / Characteristics Respiratory Depth Blood Pressure - Lying Blood Pressure - Sitting Blood Pressure- Standing Blood Pressure 172/92 H Blood Pressure Mean 124 Blood Pressure Position Pulse Oximetry 96 97 Oxygen Delivery Method Sepsis Action Taken by Nursing 10/06/19 12:01 10/06/19 12:02 10/06/19 12:03 Temperature Temperature Source Pulse Rate - Lying Pulse Rate - Sitting Pulse Rate - Standing Pulse Rate 86 86 81 Pulse Rate from SpO2 Sensor 82 86 84 Respiratory Rate 18 14 15 Respiratory Effort / Characteristics Respiratory Depth Blood Pressure - Lying Blood Pressure - Sitting Blood Pressure- Standing Blood Pressure 176/90 H Blood Pressure Mean 112 Blood Pressure Position Pulse Oximetry 96 95 Oxygen Delivery Method Sepsis Action Taken by Nursing 10/06/19 12:30 10/06/19 12:31 10/06/19 13:00 Temperature Temperature Source Pulse Rate - Lying Pulse Rate - Sitting Pulse Rate - Standing Pulse Rate 84 78 82 Pulse Rate from SpO2 Sensor 94 H 81 81 Respiratory Rate 18 15 15 Respiratory Effort / Characteristics Respiratory Depth Blood Pressure - Lying Blood Pressure - Sitting Blood Pressure- Standing Blood Pressure 172/103 H 161/98 H Blood Pressure Mean 123 102 Blood Pressure Position Pulse Oximetry 98 96 98 Oxygen Delivery Method Sepsis Action Taken by Nursing 10/06/19 13:06 10/06/19 13:08 10/06/19 13:09 Temperature Temperature Source Pulse Rate - Lying 86 Pulse Rate - Sitting 87 Pulse Rate - Standing 92 H Pulse Rate 85 84 Pulse Rate from SpO2 Sensor 82 85 Respiratory Rate 19 24 Respiratory Effort / Characteristics Respiratory Depth Blood Pressure - Lying 174/85 H Blood Pressure - Sitting 170/97 H Blood Pressure- Standing 181/82 H Blood Pressure 174/88 H 170/97 H Blood Pressure Mean 106 114 Blood Pressure Position Pulse Oximetry 97 94 Oxygen Delivery Method Sepsis Action Taken by Nursing 10/06/19 13:10 Temperature Temperature Source Pulse Rate - Lying Pulse Rate - Sitting Pulse Rate - Standing Pulse Rate Pulse Rate from SpO2 Sensor Respiratory Rate Respiratory Effort / Characteristics Respiratory Depth Blood Pressure - Lying Blood Pressure - Sitting Blood Pressure- Standing Blood Pressure 181/82 H Blood Pressure Mean 119 Blood Pressure Position Pulse Oximetry Oxygen Delivery Method Sepsis Action Taken by Nursing GENERAL: Patient is a healthy-appearing well-nourished female HEAD: Normocephalic atraumatic EYES: Ocular movements intact pupils equal and react to light OROPHARYNX mucous membranes are moist no exudates present no erythema or edema present NECK: Supple no nuchal rigidity CHEST: Good equal expansion LUNGS: Clear and equal to auscultation CARDIAC: Normal S1 and S2 ABDOMEN: Soft nontender no guarding BACK: No CVA tenderness EXTREMITIES: normal muscle strength in all groups no clubbing cyanosis or edema, Rt hip tender @ Rt trochanter, neurovascularly intact RLE, Left arm tender humerus area, neurovascularly intact left wrist area, Good ROM Rt hip, Rt knee, left shoulder, left elbow NEURO: Patient is following commands is answering questions appropriately. Alert and oriented x3 Cranial Nerves 2-12 grossly intact Course Administered Medications Cyanocobalamin (Vitamin B-12) 1,000 [address] IM DA[address] LANE Stop: 11/05/19 17:29 Last Admin: 10/06/19 20:01 Dose: 1,000 mcg Documented by: [id number] Diclofenac Sodium (Voltaren 1% Top) [address] Stop: 11/05/19 16:59 Last Admin: 10/06/19 20:02 Dose: 4 gm Documented by: [id number] Admin: 10/06/19 17:52 Dose: 4 gm Documented by: [id number] Heparin Sodium (Porcine) (Heparin Sodium (Porcine)) 5,[address] units SQ Q8 LANE Stop: 11/05/19 16:05 Last Admin: 10/07/19 05:55 Dose: 5,000 units Documented by: [id number] Cosigned by: [id number] Admin: 10/06/19 20:09 Dose: 5,000 units Documented by: [id number] Cosigned by: [id number] Admin: 10/06/19 17:50 Dose: 5,000 units Documented by: [id number] Cosigned by: [id number] Famotidine 20 mg/ Syringe 5 mls @ 2.5 mls/min IV BID LANE Stop: 11/05/19 20:59 Last Admin: 10/06/19 21:13 Dose: 2.5 mls/min Documented by: [id number] Lidocaine (Lidoderm 5%) 3 patch TD HS [facility] Stop: 11/05/19 20:29 Last Admin: 10/06/19 21:13 Dose: Not Given Documented by: [id number] Miscellaneous (Order Awaiting Action) 1 ea N/A QS [facility] Stop: 11/06/19 00:00 Last Admin: 10/07/19 00:55 Dose: Not Given Documented by: [id number] Multivitamins/Minerals (Multivitamin W/ Minerals Tab) [address] Stop: 11/05/19 16:05 Last Admin: 10/06/19 17:51 Dose: 1 tab Documented by: [id number] Prednisone (Prednisone) [address]ANE Stop: 11/05/19 16:05 Last Admin: 10/06/19 17:52 Dose: 30 mg Documented by: [id number] Thiamine HCl (Vitamin B-1) [address] Stop: 11/05/19 16:05 Last Admin: 10/06/19 20:03 Dose: 200 mg Documented by: [id number] Admin: 10/06/19 17:52 Dose: 200 mg Documented by: [id number] Discontinued Medications Acetaminophen (Tylenol) 1,000 mg PO NOW STA Stop: 10/06/19 10:43 Last Admin: 10/06/19 11:20 Dose: 1,000 mg Documented by: [id number] Sodium Chloride (Nss 1000ml) 500 mls @ 999 mls/hr IV .Q31M ONE Stop: 10/06/19 11:27 Last Infusion: 10/06/19 12:21 Dose: 0 mls/hr Documented by: [id number] Admin: 10/06/19 11:20 Dose: 999 mls/hr Documented by: [id number] Sodium Chloride (Nss 1000ml) 1,000 mls @ 100 mls/hr IV .Q10H LANE Stop: 10/06/19 23:14 Last Infusion: 10/07/19 04:14 Dose: 0 mls/hr Documented by: [id number] Admin: 10/06/19 17:49 Dose: 100 mls/hr Documented by: [id number] Ioversol (Optiray 320 125ml) 116 ml IV ONCE PRN PRN Reason: Interaction Checking Stop: 10/10/19 10:15 Last Admin: 10/06/19 10:16 Dose: 116 ml Documented by: [id number] Meclizine HCl (Antivert) 25 mg PO NOW STA Stop: 10/06/19 09:43 Last Admin: 10/06/19 09:48 Dose: 25 mg Documented by: [id number] Ondansetron HCl (Zofran) 4 mg IV NOW STA Stop: 10/06/19 09:43 Last Admin: 10/06/19 09:48 Dose: 4 mg Documented by: [id number] Medical Decision Making Differential Diagnosis Benign positional vertigo, dehydration, hypovolemia, anemia, tumor, infection, hypoglycemia, electrolyte abnormalities, cardiac sources, intracerebral event, toxicologic, neurologic, as well as other pathologies. Medical Records Attestation: I reviewed the patient's medical records. Home Medications Current Medication List: was personally reviewed by me Laboratory Data Attestation: I reviewed the patient's lab results. Result diagrams: 10/06/19 09:32 10/07/19 05:42 Lab Results 10/06/19 10/06/19 10/06/19 Range/Units 09:32 09:32 09:32 WBC 8.16 (4.8-10.8) K/uL RBC 4.52 (4.2-5.4) M/uL Hgb 15.0 (12.0-16.0) g/dL POC Hgb (12.0-16.0) g/dl Hct 43.9 (37-47) % POC Hct (37-47) % MCV 97.1 (80-100) fL MCH 33.2 (25-34) pg MCHC 34.2 (32-36) g/dL RDW Std Deviation 48.1 H (36.4-46.3) fL RDW Coeff of Messi 13.5 (11.5-14.5) % Plt Count 305 (130-400) K/uL MPV 9.5 (7.4-10.4) fL Immature Gran % (Auto) 0.1 % Neut % (Auto) 61.9 % Lymph % (Auto) 28.9 % Clare % (Auto) 6.5 % Eos % (Auto) 2.2 % Baso % (Auto) 0.4 % Immature Gran # (Auto) 0.01 (0.00-0.02) K/uL Neut # (Auto) 5.05 (1.4-6.5) K/uL Lymph # (Auto) 2.36 (1.2-3.4) K/uL Clare # (Auto) 0.53 (0.11-0.59) K/uL Eos # (Auto) 0.18 (0-0.5) K/uL Baso # (Auto) 0.03 (0-0.2) K/uL PT Cancelled INR Cancelled APTT Cancelled PTT Ratio Cancelled POC Sodium (135-144) mmol/L Sodium 140 (136-145) mmol/L POC Potassium (3.3-5.0) mmol/L Potassium 3.6 (3.5-5.1) mmol/L POC Chloride (101-112) mmol/L Chloride 109 H (98-107) mmol/L Carbon Dioxide 24 (21-32) mmol/L POC Total CO2 (24-31) mEq/l Anion Gap 7.0 (3-11) POC Anion Gap (16-25) mmol/L POC BUN (7-18) mg/dl BUN 8 (7-18) mg/dl Creatinine 0.72 (0.6-1.2) mg/dl POC Creatinine (0.6-1.3) mg/dl Est Cr Clr Drug Dosing 83.1 ml/min Est GFR ( Amer) 96.3 Est GFR (Non-Af Amer) 83.1 BUN/Creatinine Ratio 10.9 (10-20) Glucose 152 H (70-99) mg/dl POC Glucose (70-99) mg/dl POC Glucose (other) (70-99) mg/dl Calcium 8.6 (8.5-10.1) mg/dl POC Ioniz Calcium Crescencio (1.12-1.32) mmol/l Magnesium 2.2 (1.8-2.4) mg/dl Total Bilirubin 0.6 (0.2-1) mg/dl AST 48 H (15-37) U/L ALT 40 (12-78) U/L Alkaline Phosphatase 98 (45-117) U/L Total Creatine Kinase (26-192) U/L Troponin I 0.030 (0-0.045) ng/ml Total Protein 7.3 (6.4-8.2) gm/dl Albumin 3.4 (3.4-5.0) gm/dl Globulin 3.9 (2.5-4.0) gm/dl Albumin/Globulin Ratio 0.9 (0.9-2) Vitamin B12 (211-911) pg/ml Urine Color Urine Appearance (Clear) Urine pH (4.5-7.5) Ur Specific Atlantic (1.000-1.030) Urine Protein (Negative) Urine Glucose (UA) (Negative) Urine Ketones (Negative) Urine Blood (Negative) Urine Nitrite (Negative) Urine Bilirubin (Negative) Urine Urobilinogen (Negative) Ur Leukocyte Esterase (Negative) Urine WBC (Auto) (0-5) /hpf Urine RBC (Auto) (0-4) /hpf U Hyaline Cast (Auto) (0-5) /lpf U Epithel Cells (Auto) (0-5) /lpf Urine Bacteria (Auto) (Negative) 10/06/19 10/06/19 10/06/19 Range/Units 09:32 09:37 09:43 WBC (4.8-10.8) K/uL RBC (4.2-5.4) M/uL Hgb (12.0-16.0) g/dL POC Hgb 14.6 (12.0-16.0) g/dl Hct (37-47) % POC Hct 43 (37-47) % MCV (80-100) fL MCH (25-34) pg MCHC (32-36) g/dL RDW Std Deviation (36.4-46.3) fL RDW Coeff of Messi (11.5-14.5) % Plt Count (130-400) K/uL MPV (7.4-10.4) fL Immature Gran % (Auto) % Neut % (Auto) % Lymph % (Auto) % Clare % (Auto) % Eos % (Auto) % Baso % (Auto) % Immature Gran # (Auto) (0.00-0.02) K/uL Neut # (Auto) (1.4-6.5) K/uL Lymph # (Auto) (1.2-3.4) K/uL Clare # (Auto) (0.11-0.59) K/uL Eos # (Auto) (0-0.5) K/uL Baso # (Auto) (0-0.2) K/uL PT INR APTT PTT Ratio POC Sodium 141 (135-144) mmol/L Sodium (136-145) mmol/L POC Potassium 3.8 (3.3-5.0) mmol/L Potassium (3.5-5.1) mmol/L POC Chloride 106 (101-112) mmol/L Chloride (98-107) mmol/L Carbon Dioxide (21-32) mmol/L POC Total CO2 23 L (24-31) mEq/l Anion Gap (3-11) POC Anion Gap 16.0 (16-25) mmol/L POC BUN 7 (7-18) mg/dl BUN (7-18) mg/dl Creatinine (0.6-1.2) mg/dl POC Creatinine 0.6 (0.6-1.3) mg/dl Est Cr Clr Drug Dosing ml/min Est GFR ( Amer) Est GFR (Non-Af Amer) BUN/Creatinine Ratio (10-20) Glucose (70-99) mg/dl POC Glucose 133 H (70-99) mg/dl POC Glucose (other) 145 H (70-99) mg/dl Calcium (8.5-10.1) mg/dl POC Ioniz Calcium Crescencio 1.11 L (1.12-1.32) mmol/l Magnesium (1.8-2.4) mg/dl Total Bilirubin (0.2-1) mg/dl AST (15-37) U/L ALT (12-78) U/L Alkaline Phosphatase (45-117) U/L Total Creatine Kinase 158 (26-192) U/L Troponin I (0-0.045) ng/ml Total Protein (6.4-8.2) gm/dl Albumin (3.4-5.0) gm/dl Globulin (2.5-4.0) gm/dl Albumin/Globulin Ratio (0.9-2) Vitamin B12 (211-911) pg/ml Urine Color Urine Appearance (Clear) Urine pH (4.5-7.5) Ur Specific Atlantic (1.000-1.030) Urine Protein (Negative) Urine Glucose (UA) (Negative) Urine Ketones (Negative) Urine Blood (Negative) Urine Nitrite (Negative) Urine Bilirubin (Negative) Urine Urobilinogen (Negative) Ur Leukocyte Esterase (Negative) Urine WBC (Auto) (0-5) /hpf Urine RBC (Auto) (0-4) /hpf U Hyaline Cast (Auto) (0-5) /lpf U Epithel Cells (Auto) (0-5) /lpf Urine Bacteria (Auto) (Negative) 10/06/19 10/06/19 Range/Units 12:01 13:04 WBC (4.8-10.8) K/uL RBC (4.2-5.4) M/uL Hgb (12.0-16.0) g/dL POC Hgb (12.0-16.0) g/dl Hct (37-47) % POC Hct (37-47) % MCV (80-100) fL MCH (25-34) pg MCHC (32-36) g/dL RDW Std Deviation (36.4-46.3) fL RDW Coeff of Messi (11.5-14.5) % Plt Count (130-400) K/uL MPV (7.4-10.4) fL Immature Gran % (Auto) % Neut % (Auto) % Lymph % (Auto) % Clare % (Auto) % Eos % (Auto) % Baso % (Auto) % Immature Gran # (Auto) (0.00-0.02) K/uL Neut # (Auto) (1.4-6.5) K/uL Lymph # (Auto) (1.2-3.4) K/uL Clare # (Auto) (0.11-0.59) K/uL Eos # (Auto) (0-0.5) K/uL Baso # (Auto) (0-0.2) K/uL PT INR APTT PTT Ratio POC Sodium (135-144) mmol/L Sodium (136-145) mmol/L POC Potassium (3.3-5.0) mmol/L Potassium (3.5-5.1) mmol/L POC Chloride (101-112) mmol/L Chloride (98-107) mmol/L Carbon Dioxide (21-32) mmol/L POC Total CO2 (24-31) mEq/l Anion Gap (3-11) POC Anion Gap (16-25) mmol/L POC BUN (7-18) mg/dl BUN (7-18) mg/dl Creatinine (0.6-1.2) mg/dl POC Creatinine (0.6-1.3) mg/dl Est Cr Clr Drug Dosing ml/min Est GFR ( Amer) Est GFR (Non-Af Amer) BUN/Creatinine Ratio (10-20) Glucose (70-99) mg/dl POC Glucose (70-99) mg/dl POC Glucose (other) (70-99) mg/dl Calcium (8.5-10.1) mg/dl POC Ioniz Calcium Crescencio (1.12-1.32) mmol/l Magnesium (1.8-2.4) mg/dl Total Bilirubin (0.2-1) mg/dl AST (15-37) U/L ALT (12-78) U/L Alkaline Phosphatase (45-117) U/L Total Creatine Kinase (26-192) U/L Troponin I (0-0.045) ng/ml Total Protein (6.4-8.2) gm/dl Albumin (3.4-5.0) gm/dl Globulin (2.5-4.0) gm/dl Albumin/Globulin Ratio (0.9-2) Vitamin B12 234 (211-911) pg/ml Urine Color Yellow Urine Appearance Clear (Clear) Urine pH 6.5 (4.5-7.5) Ur Specific Atlantic > 1.045 H (1.000-1.030) Urine Protein Negative (Negative) Urine Glucose (UA) Negative (Negative) Urine Ketones Negative (Negative) Urine Blood Negative (Negative) Urine Nitrite Negative (Negative) Urine Bilirubin Negative (Negative) Urine Urobilinogen Negative (Negative) Ur Leukocyte Esterase 2+ H (Negative) Urine WBC (Auto) >30 H (0-5) /hpf Urine RBC (Auto) 0-4 (0-4) /hpf U Hyaline Cast (Auto) 1-5 (0-5) /lpf U Epithel Cells (Auto) >30 H (0-5) /lpf Urine Bacteria (Auto) Negative (Negative) Imaging Data Radiologist's Impression: [facility], [place] [phone] XRay Report Patient: LUZ ELENA SUN Admit Date: 10/06/19 MR#: [id number] Address1: [address] [place] [address] Acct ID:[id number] Address2: Date: 1945 [facility] Zip: [place] [address] Age: 74 Location: ED Sex: F Room/Bed: Att Phy: Diagnosis: FALLS,DIZZINESS,BILAT KNEE SURG FELL ONTO KNEES Ping Phy: RV. Kaplan MD Service Date: 10/06/19 Fam Phy: Interpreting Phy: Kyle Dunlap MD Admit Phy: Ordering Phy: Jamey Cochran MD cc: ~ XR chest 1V portable CLINICAL HISTORY: Trauma. Chest and abdominal pain. COMPARISON STUDY: 03/06/2019 FINDINGS: The heart is the upper limits of normal in size. There is mild interstitial and vascular prominence which may be related to technical factors. There is no focal pulmonary consolidation. There is no failure. There are no pleural effusions. There is no pneumothorax.[ IMPRESSION: 1. Mild interstitial and vascular prominence, possibly related to technical factors 2. No evidence of focal pulmonary consolidation ACT 112: Negative or not required by law. Electronically signed by: Kyle Dunlap M.D. 10/06/2019 11:19 AM [facility], [place] [phone] XRay Report Patient: LUZ ELENA SUN Admit Date: 10/06/19 MR#: [id number] Address1: [address] [place] [address] Acct ID:[id number] Address2: Date: 1945 [facility] Zip: [place] [address] Age: 74 Location: ED Sex: F Room/Bed: Att Phy: Diagnosis: FALLS,DIZZINESS,BILAT KNEE SURG FELL ONTO KNEES Ping Phy: RV. Kaplan MD Service Date: 10/06/19 Fam Phy: Interpreting Phy: Renny Seaman Admit Phy: Ordering Phy: Jamey Cochran MD cc: ~ XR humerus LT 2V HISTORY: 74 years-old Female Pt c/o left arm pain acute left arm pain status post fall COMPARISON: Chest radiograph of same day TECHNIQUE: 2 views of the left humerus FINDINGS: Mild to moderate glenohumeral with moderate AC joint osteoarthritis. No acute fracture, dislocation or avascular necrosis. Cortical irregularity of the radial head is suggestive of probable degenerative spurring. The imaged lung rey appear clear. IMPRESSION: No acute fracture or dislocation. ACT 112: Negative or not required by law. The above report was generated using voice recognition software. It may contain grammatical, syntax or spelling errors. Electronically signed by: Pete Seaman M.D. 10/06/2019 11:19 AM Dictated: 10/06/19 1118 Transcribed: 10/06/19 1118 [place], [place] [phone] CT Scan Report Patient: LUZ ELENA SUN Admit Date: 10/06/19 MR#: [id number] Address1: [address] [place] [address] Acct ID:[id number] Address2: Date: 1945 [facility] Zip: [place] [address] Age: 74 Location: ED Sex: F Room/Bed: Att Phy: Diagnosis: FALLS,DIZZINESS,BILAT KNEE SURG FELL ONTO KNEES Ping Phy: RV. Kaplan MD Service Date: 10/06/19 Fam Phy: Interpreting Phy: Renny Seaman Admit Phy: Ordering Phy: Jamey Cochran MD cc: ~ ABDOMEN AND PELVIS CT WITH IV CONTRAST CT DOSE: 3024.09 mGy.cm HISTORY: Acute left-sided abdominal pain Pt c/o left sided abd pain s/p fall TECHNIQUE: Multiaxial CT images of the abdomen and pelvis were performed following the IV administration of 116 cc of Optiray 320, A dose lowering technique was utilized adhering to the principles of ALARA. COMPARISON STUDY: CT abdomen and pelvis 03/06/2019 FINDINGS: Mild bibasilar atelectasis. No pneumatosis or pneumoperitoneum. Imaged inferior cardiac chambers are mildly enlarged with coronary artery calcifications. Anterior cardial lymph nodes measure up to 1.6 x 0.9 cm, mildly increased in size from comparison. The spleen, pancreas and adrenal glands are unremarkable. Suspected mild marginal nodularity of the liver. No ascites. Cholecystectomy. Mild biliary ductal dilation is likely on a postsurgical basis. No hepatic mass lesion identified. No definite renal or ureteral calculi identified. 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 Upper abdominal collateral vessels. Unremarkable appearance of the partially decompressed urinary bladder. Hysterectomy. No adnexal mass lesions. Moderate calcified plaque of the abdominal aorta without aneurysm. No adenopathy. No bowel obstruction or bowel wall thickening. Colonic diverticulosis without acute diverticulitis. The terminal ileum and appendix are unremarkable. Diastases recti with multiple fat filled ventral abdominal wall hernias. A small to moderate ventral hernia contains a nonobstructed loop of small bowel. Degenerative changes of the spine, pelvis and hips. No acute fracture identified. IMPRESSION: 1. No acute intra-abdominal or intrapelvic abnormality identified. 2. No evidence of acute solid organ injury or acute fracture. 3. 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 4. Diastases recti with ventral abdominal wall hernias including a hernia which contains a nonobstructed loop of small bowel. 5. Colonic diverticulosis without acute diverticulitis. 6. Additional findings as above. ACT 112: Negative or not required by law. The above report was generated using voice recognition software. It may contain grammatical, syntax or spelling errors. Electronically signed by: Pete Seaman M.D. 10/06/2019 10:51 AM Dictated: 10/06/19 1040 Transcribed: 10/06/19 1040 [facility], [place] [phone] XRay Report Patient: LUZ ELENA SUN Admit Date: 10/06/19 MR#: [id number] Address1: [address] [place] [address] Acct ID:[id number] Address2: Date: 1945 [facility] Zip: [place] [address] Age: 74 Location: ED Sex: F Room/Bed: Att Phy: Diagnosis: FALLS,DIZZINESS,BILAT KNEE SURG FELL ONTO KNEES Ping Phy: RV. Kaplan MD Service Date: 10/06/19 [facility] Phy: Interpreting Phy: Renny Seaman Admit Phy: Ordering Phy: Jamey Cochran MD cc: ~ XR femur RT 2V routine, XR pelvis 1-2V routine HISTORY: 74 years-old Female Pt c/o Rt hip pain acute pelvic and right hip pain status post fall COMPARISON: CT abdomen and pelvis of same day TECHNIQUE: AP view the pelvis with 2 views of the right femur FINDINGS: FEMUR: Mild to moderate right hip osteoarthritis. There is no acute fracture, dislocation or avascular necrosis. The imaged right hemipelvis appears intact. Contrast is noted within the urinary bladder lumen. Bilateral knee total joint arthroplasties. Trace right knee joint effusion. PELVIS: No acute fracture, dislocation or avascular necrosis. Mild to moderate right and moderate left hip osteoarthritis. IMPRESSION: No acute fracture or dislocation. ACT 112: Negative or not required by law. The above report was generated using voice recognition software. It may contain grammatical, syntax or spelling errors. Electronically signed by: Pete Seaman M.D. 10/06/2019 11:18 AM Dictated: 10/06/19 1116 Transcribed: 10/06/19 1116 [place], [place] [phone] XRay Report Patient: LUZ ELENA SUN Admit Date: 10/06/19 MR#: [id number] Address1: [address] [place] [address] Acct ID:[id number] Address2: Date: 1945 [facility] Zip: [place] [address] Age: 74 Location: ED Sex: F Room/Bed: Att Phy: Diagnosis: FALLS,DIZZINESS,BILAT KNEE SURG FELL ONTO KNEES Ping Phy: RV. Kaplan MD Service Date: 10/06/19 [facility] Phy: Interpreting Phy: Renny Seaman Admit Phy: Ordering Phy: Jamey Cochran MD cc: ~ XR femur RT 2V routine, XR pelvis 1-2V routine HISTORY: 74 years-old Female Pt c/o Rt hip pain acute pelvic and right hip pain status post fall COMPARISON: CT abdomen and pelvis of same day TECHNIQUE: AP view the pelvis with 2 views of the right femur FINDINGS: FEMUR: Mild to moderate right hip osteoarthritis. There is no acute fracture, dislocation or avascular necrosis. The imaged right hemipelvis appears intact. C ontrast is noted within the urinary bladder lumen. Bilateral knee total joint arthroplasties. Trace right knee joint effusion. PELVIS: No acute fracture, dislocation or avascular necrosis. Mild to moderate right and moderate left hip osteoarthritis. IMPRESSION: No acute fracture or dislocation. ACT 112: Negative or not required by law. The above report was generated using voice recognition software. It may contain grammatical, syntax or spelling errors. Electronically signed by: Pete Seaman M.D. 10/06/2019 11:18 AM Dictated: 10/06/19 1116 Transcribed: 10/06/19 1116 [place], [place] [phone] CT Scan Report Patient: LUZ ELENA SUN Admit Date: 10/06/19 MR#: [id number] Address1: [address] [place] [address] Acct ID:[id number] Address2: Date: 1945 [facility] Zip: [place] [address] Age: 74 Location: ED Sex: F Room/Bed: Att Phy: Diagnosis: FALLS,DIZZINESS,BILAT KNEE SURG FELL ONTO KNEES Ping Phy: RV. Kaplan MD Service Date: 10/06/19 [facility] Phy: Interpreting Phy: Kyle Dunlap MD Admit Phy: Ordering Phy: Jamey Cochran MD cc: ~ CT angio neck with con CLINICAL HISTORY: Stroke evaluation COMPARISON STUDY: No previous studies for comparison. TECHNIQUE: CT angiography was performed from the aortic arch to the skull base. MIP imaging was performed. The patient was scanned in a dynamic helical fashion during intravenous administration of 116 cc of Optiray 320. A dose lowering technique was utilized adhering to the principles of ALARA. CT DOSE: Technique: CT angiogram of the carotid and vertebral arteries was obtained using intravenous contrast and 3-D reconstruction. NASCET criteria was utilized. Findings: The right carotid revealed no evidence of aneurysm and no evidence of dissection. There is no evidence of hemodynamic significant stenosis. There is moderate plaque at the level the right carotid bulb. The left carotid revealed no evidence of hemodynamic significant stenosis. There is no evidence of aneurysm. There is no evidence of dissection. There is no evidence of hemodynamically significant vertebral stenosis. There is no evidence of vertebral dissection. IMPRESSION: No evidence of hemodynamically significant carotid or vertebral artery stenosis. No evidence of dissection. ACT 112: Negative or not required by law. Electronically signed by: Kyle Dunlap M.D. 10/06/2019 10:40 AM Dictated: 10/06/19 1036 Transcribed: 10/06/19 1036 [place], [place] [phone] CT Scan Report Patient: LUZ ELENA SUN Admit Date: 10/06/19 MR#: [id number] Address1: [address] [place] [address] Acct ID:[id number] Address2: Date: 1945 [facility] Zip: [place] [address] Age: 74 Location: ED Sex: F Room/Bed: Att Phy: Diagnosis: FALLS,DIZZINESS,BILAT KNEE SURG FELL ONTO KNEES Ping Phy: RV. Kaplan MD Service Date: 10/06/19 [facility] Phy: Interpreting Phy: Kyle Dunlap MD Admit Phy: Ordering Phy: Jamey Cochran MD cc: ~ CT angio head w con CLINICAL HISTORY: Acute stroke like symptoms TECHNIQUE: CT angiography of the head was performed in a dynamic helical fashion during intravenous administration of 116 cc of Optiray 320. MIP imaging was performed. A dose lowering technique was utilized adhering to the principles of ALARA. CT DOSE: COMPARISON STUDY: Noncontrast head CT dated 10/06/2019 FINDINGS: There are no lesion suspicious for aneurysm. There are no major intracranial branch occlusions. The dural venous sinuses appear patent. There is a moderate stenosis of the left posterior cerebral artery. IMPRESSION: 1. 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 No evidence of aneurysm ACT 112: Negative or not required by law. [place], [place] [phone] CT Scan Report Patient: LUZ ELENA SUN Admit Date: 10/06/19 MR#: [id number] Address1: [address] [place] [address] Acct ID:[id number] Address2: Date: 1945 [facility] Zip: [place] [address] Age: 74 Location: ED Sex: F Room/Bed: Att Phy: Diagnosis: FALLS,DIZZINESS,BILAT KNEE SURG FELL ONTO KNEES Ping Phy: RV. Kaplan MD Service Date: 10/06/19 [facility] Phy: Interpreting Phy: Kyle Dunlap MD Admit Phy: Ordering Phy: Jamey Cochran MD cc: ~ CT head/brain wo con CLINICAL HISTORY: Strokelike symptoms COMPARISON STUDY: MRI the brain dated 03/17/2019 TECHNIQUE: Axial CT of the brain is performed from the vertex to the skull base. IV contrast was not administered for this examination. A dose lowering technique was utilized adhering to the principles of ALARA. CT DOSE: FINDINGS: No intra or extra-axial mass lesions are visualized. There is no CT evidence of acute cortical infarction. There is no evidence of midline shift. There is no acute hemorrhage. No calvarial fractures are visualized. There is no evidence of pathologic ventricular dilatation. There is no evidence of acute sinusitis IMPRESSION: No acute intracranial findings ACT 112: Negative or not required by law. Electronically signed by: Kyle Dunlap M.D. 10/06/2019 10:21 AM Dictated: 10/06/19 1019 Transcribed: 10/06/19 1021 ECG Data Attestation: I personally reviewed and interpreted this ECG as follows: Indication: + other (dizziness) Rate (beats per minute): 81 Rhythm: + normal sinus ECG Intervals/blocks: + Prolonged QT (501) ECG [place]: + Normal ECG ST segments: no ST depression and no ST elevation ECG Findings: + PACs Comparison ECG Date: from (03/06/2019) Change: the following changes noted (QTC has lengthened, premature atrial complexes now present ) Blood Pressure Blood Pressure Findings: Elevated blood pressure Blood Pressure Disposition: elevated BP felt to be situational MDM Narrative This is a 74-year-old female who presents emergency department complaining of right hip pain as well as left arm pain. I am concerned that the patient has jackson d multiple falls at home. Her CTA is also concerning for stenosis to the [employer] which in theory could be causing her dizziness. For this reason I did discuss the case with the hospitalist service who did agree to see the patient. Patient was also given meclizine here in the emergency department with no improvement in her symptoms. I also discussed the case with the patient's family who are also in agreement. Impression & Plan Falls, Hypertension, Arm pain, left, Acute hip pain Discharge Plan Visit Data *Final* Discharge Date/Time: 10/06/19 15:21 Chief Complaint: Fall Stated Complaint: FALLS,DIZZINESS,BILAT KNEE SURG FELL ONTO KNEES ED Provider: Jamey Cochran Discharge Problem: Falls, Hypertension, Arm pain, left, Acute hip pain Patient Disposition: Admitted As Inpatient Discharge Instructions Interventions: ED Discharge Assessment Last Done: 10/06/19 15:21 Discharge Problem: Falls Qualifiers: Encounter type: initial encounter Qualified Code(s): W19.XXXA - Unspecified fall, initial encounter Hypertension Qualifiers: Hypertension type: unspecified Qualified Code(s): I10 - Essential (primary) hypertension Acute hip pain Qualifiers: Laterality: right Qualified Code(s): M25.551 - Pain in right hip
[2019-10-06 10:09] LABS: Albumin Level 3.4 gm/dl (3.4-5.0); BUN Creatinine Ratio 10.9 (10-20); Calcium 8.6 mg/dl (8.5-10.1); Creatinine Clr Calc Pharmacy 83.1 ml/min; Est GFR (African American) 96.3; Est GFR (Non-African American) 83.1; Magnesium 2.2 mg/dl (1.8-2.4); Potassium 3.6 mmol/L (3.5-5.1)
[2019-10-06 10:14] LABS: Albumin Globulin Ratio 0.9 (0.9-2); Bilirubin,Total 0.6 mg/dl (0.2-1); Globulin 3.9 gm/dl (2.5-4.0); Total Protein 7.3 gm/dl (6.4-8.2); Troponin I 0.03 ng/ml (0-0.045)
[2019-10-06] MEDS ORDERED: OPTIRAY 320 125ml IV PRN (10:16)
--- NOTE | 2019-10-06 10:31 | CT Scan Report ---
CT head/brain wo con CLINICAL HISTORY: Strokelike symptoms COMPARISON STUDY: MRI the brain dated 03/17/2019 TECHNIQUE: Axial CT of the brain is performed from the vertex to the skull base. IV contrast was not administered for this examination. A dose lowering technique was utilized adhering to the principles of ALARA. CT DOSE: FINDINGS: No intra or extra-axial mass lesions are visualized. There is no CT evidence of acute cortical infarc tion. There is no evidence of midline shift. There is no acute hemorrhage. No calvarial fractures ar e visualized. There is no evidence of pathologic ventricular dilatation. There is no evidence of acute sinusitis IMPRESSION: No acute intracranial findings ACT 112: Negative or not required by law. Electronically signed by: Kyle Dunlap M.D. 10/06/2019 10:21 AM
--- NOTE | 2019-10-06 10:37 | CT Scan Report ---
CT angio head w con CLINICAL HISTORY: Acute stroke like symptoms TECHNIQUE: CT angiography of the head was performed in a dynamic helical fashion during intravenous a dministration of 116 cc of Optiray 320. MIP imaging was performed. A dose lowering technique was util ized adhering to the principles of ALARA. CT DOSE: COMPARISON STUDY: Noncontrast head CT dated 10/06/2019 FINDINGS: There are no lesion suspicious for aneurysm. There are no major intracranial branch occlusi ons. The dural venous sinuses appear patent. There is a moderate stenosis of the left posterior cereb ral artery. IMPRESSION: 1. 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 No evidence of aneurysm ACT 112: Negative or not required by law. Electronically signed by: Kyle Dunlap M.D. 10/06/2019 10:36 AM
--- NOTE | 2019-10-06 10:41 | CT Scan Report ---
CT angio neck with con CLINICAL HISTORY: Stroke evaluation COMPARISON STUDY: No previous studies for comparison. TECHNIQUE: CT angiography was performed from the aortic arch to the skull base. MIP imaging was perfo rmed. The patient was scanned in a dynamic helical fashion during intravenous administration of 116 c c of Optiray 320. A dose lowering technique was utilized adhering to the principles of ALARA. CT DOSE: Technique: CT angiogram of the carotid and vertebral arteries was obtained using intravenous contrast and 3-D reconstruction. NASCET criteria was utilized. Findings: The right carotid revealed no evidence of aneurysm and no evidence of dissection. There is no evidenc e of hemodynamic significant stenosis. There is moderate plaque at the level the right carotid bulb. The left carotid revealed no evidence of hemodynamic significant stenosis. There is no evidence of an eurysm. There is no evidence of dissection. There is no evidence of hemodynamically significant vertebral stenosis. There is no evidence of verte bral dissection. IMPRESSION: No evidence of hemodynamically significant carotid or vertebral artery stenosis. No evidence of disse ction. ACT 112: Negative or not required by law. Electronically signed by: Kyle Dunlap M.D. 10/06/2019 10:40 AM
[2019-10-06] MEDS ORDERED: ACETAMINOPHEN 500 MG TAB PO STA (10:42)
--- NOTE | 2019-10-06 10:52 | CT Scan Report ---
ABDOMEN AND PELVIS CT WITH IV CONTRAST CT DOSE: 3024.09 mGy.cm HISTORY: Acute left-sided abdominal pain Pt c/o left sided abd pain s/p fall TECHNIQUE: Multiaxial CT images of the abdomen and pelvis were performed following the IV administrat ion of 116 cc of Optiray 320, A dose lowering technique was utilized adhering to the principles of A KHANH. COMPARISON STUDY: CT abdomen and pelvis 03/06/2019 FINDINGS: Mild bibasilar atelectasis. No pneumatosis or pneumoperitoneum. Imaged inferior cardiac chambers are mildly enlarged with coronary artery calcifications. Anterior cardial lymph nodes measure up to 1.6 x 0.9 cm, mildly increased in size from comparison. The spleen, pancreas and adrenal glands are unrema rkable. Suspected mild marginal nodularity of the liver. No ascites. Cholecystectomy. Mild biliary du ctal dilation is likely on a postsurgical basis. No hepatic mass lesion identified. No definite renal or ureteral calculi identified. Chronic thrombosis of the portal vein with cavernou s transformation. Upper abdominal collateral vessels. Unremarkable appearance of the partially decomp ressed urinary bladder. Hysterectomy. No adnexal mass lesions. Moderate calcified plaque of the abdom inal aorta without aneurysm. No adenopathy. No bowel obstruction or bowel wall thickening. Colonic di verticulosis without acute diverticulitis. The terminal ileum and appendix are unremarkable. Diastase s recti with multiple fat filled ventral abdominal wall hernias. A small to moderate ventral hernia c ontains a nonobstructed loop of small bowel. Degenerative changes of the spine, pelvis and hips. No a cute fracture identified. IMPRESSION: 1. No acute intra-abdominal or intrapelvic abnormality identified. 2. No evidence of acute solid organ injury or acute fracture. 3. 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 4. Diastases recti with ventral abdominal wall hernias including a hernia which contains a nonobstruc chadd loop of small bowel. 5. Colonic diverticulosis without acute diverticulitis. 6. Additional findings as above. ACT 112: Negative or not required by law. The above report was generated using voice recognition software. It may contain grammatical, syntax o r spelling errors. Electronically signed by: Pete Seaman M.D. 10/06/2019 10:51 AM
[2019-10-06] MEDS ORDERED: SODIUM CHLORIDE 0.9% 1000ML 500 ML IV ONE (10:57)
--- NOTE | 2019-10-06 11:20 | XRay Report ---
XR femur RT 2V routine, XR pelvis 1-2V routine HISTORY: 74 years-old Female Pt c/o Rt hip pain acute pelvic and right hip pain status post fall COMPARISON: CT abdomen and pelvis of same day TECHNIQUE: AP view the pelvis with 2 views of the right femur FINDINGS: FEMUR: Mild to moderate right hip osteoarthritis. There is no acute fracture, dislocation or avascular necro sis. The imaged right hemipelvis appears intact. Contrast is noted within the urinary bladder lumen. Bilateral knee total joint arthroplasties. Trace right knee joint effusion. PELVIS: No acute fracture, dislocation or avascular necrosis. Mild to moderate right and moderate left hip os teoarthritis. IMPRESSION: No acute fracture or dislocation. ACT 112: Negative or not required by law. The above report was generated using voice recognition software. It may contain grammatical, syntax o r spelling errors. Electronically signed by: Pete Semaan M.D. 10/06/2019 11:18 AM
--- NOTE | 2019-10-06 11:21 | XRay Report ---
XR humerus LT 2V HISTORY: 74 years-old Female Pt c/o left arm pain acute left arm pain status post fall COMPARISON: Chest radiograph of same day TECHNIQUE: 2 views of the left humerus FINDINGS: Mild to moderate glenohumeral with moderate AC joint osteoarthritis. No acute fracture, dislocation o r avascular necrosis. Cortical irregularity of the radial head is suggestive of probable degenerative spurring. The imaged lung rey appear clear. IMPRESSION: No acute fracture or dislocation. ACT 112: Negative or not required by law. The above report was generated using voice recognition software. It may contain grammatical, syntax o r spelling errors. Electronically signed by: Pete Seaman M.D. 10/06/2019 11:19 AM
--- NOTE | 2019-10-06 11:21 | XRay Report ---
XR chest 1V portable CLINICAL HISTORY: Trauma. Chest and abdominal pain. COMPARISON STUDY: 03/06/2019 FINDINGS: The heart is the upper limits of normal in size. There is mild interstitial and vascular pr ominence which may be related to technical factors. There is no focal pulmonary consolidation. There is no failure. There are no pleural effusions. There is no pneumothorax.[ IMPRESSION: 1. Mild interstitial and vascular prominence, possibly related to technical factors 2. No evidence of focal pulmonary consolidation ACT 112: Negative or not required by law. Electronically signed by: Kyle Dunlap M.D. 10/06/2019 11:19 AM
--- NOTE | 2019-10-06 12:17 | History & Physical Report ---
Date of Service October 06, 2019 Assessment & Plan (1) Vomiting: Etiology uncertain. CT abd/pelvis without acute findings. LFTs unremarkable. u/a with 2+ LE and WBCs but no bacteria - send urine cx, follow; hold on abx for now. Place on clear liquid diet. Pepcid IV BID. Zofran prn. Check lipase. Trend troponins in the event the vomiting was from a cardiac event. (2) Dizziness: Chronic, 1-2 years duration. 1 episode/week on average. Associated with brief syncope and falls. Last episode about 24 hours ago. Has prodromal lightheadedness. Orthostatics checked in ER - negative. Has 2-year h/o vitamin B12 deficiency which could cause dorsal column disease and gait/balance issues but shouldn't cause syncope. Check MRI brain - r/o subacute strokes, etc. Neurology consult requested for any other recommendations. Has mild prolongation of QTc - consider outpatient EP referral (loop recorder +/- tilt table test vs other). Of note - had normal echo in late fall 2018 - defer on repeat echo for now. Place on telemetry. (3) Falls: see "dizziness" above. PT, OT evals. fall precautions. spoke with her daughter Kinga - they are starting to consider [facility] placement but have not discussed this with their mother yet. B12 level is still low - start injections 1000mcg IM daily while hospitalized. Check CPK - r/o rhabdo from fall. (4) Syncope: see discussion above in "dizziness" and "falls." neurology consult. strongly consider cardiology consultation - inpatient or outpatient. (5) Vitamin B12 deficiency: x 2 years. noncompliant w/ injections or PO supplementation. In light of frequent falls, gait issues, etc -- start IM supplementation while here and would continue as outpatient. (6) Prolonged QT interval: K and mag wnl. Consider outpatient event monitor or loop recorder implantation - r/o arrhythmia as cause of events. (7) Type 2 diabetes mellitus: Check BSGs. DM/Clears. Check a1c in am. (8) PVT (portal vein thrombosis): Chronic per imaging. Related to prior liver mass resection? Since it is chronic no need for anticoagulation at this time. (9) Generalized osteoarthritis of multiple sites: Sees [facility] orthopedics. Takes chronic prednisone 2.5mg daily prescribed by [facility] for this issue. Will give stress dose (30mg/day) while here due to presenting issues. (10) Asthma: No exacerbation. Albuterol prn. (11) Hypothyroid: TSH 02/2019 wnl. Cont synthroid 75mcg daily. (12) DVT prophylaxis: heparin 5000 TID updated Kinga, her daughter, extensively by phone place on observation status for now History of Present Illness Chief Complaint: vomiting since last night; frequent falls, passing out Primary Care Provider: Fatemeh Cooper MD 74yo female with history of hypothyroidism, ?HTN, pre-DM, and OA of numerous joints (takes prednisone 2.5mg daily for such since 2019) who presents from home due to multiple episodes of emesis starting last night. Patient states she had a steak dinner prepared by her grandson last night along with a beer and late evening she started to have nausea with emesis. She then had 3 additional episodes of emesis in the middle of the night, and then a 4th episode in the car about 800am this morning. Denies nausea at this time. Denies abdominal pain although she states "she has a tenderness" in the right side of her abdomen chronically. No diarrhea. No constipation. No dysuria but reports her urine is foul-smelling -- also chronic however. She has not had emesis in the ER since arrival. Additionally she has had chronic dizziness for at least 1 year. I spoke with her daughter by phone (Kinga) and she reported the dizziness was closer to 2 years. The dizziness is described as a lightheadedness/fogginess - like "she could pass out." It does not occur at rest. There is no spinning or vertigo. She feels "funny" for about 30-60 seconds then will fall to the ground. She does lose consciousness at times but not every occasion. She has had at least 3 episodes like this in the last 2 weeks with the most recent event being yesterday. Yesterday's syncopal event/fall occurred while carrying clothes from her dryer back to her bedroom. She remembers feeling dizzy, got into her bedroom and went to the dresser, turned and then went to the ground. She briefly lost consciousness. The episodes are not associated with chest pain, dyspnea, or palpitations. She does not feel sweaty. Her family has told her that prior to falling/passing out she "stares ahead." However, no one has seen any seizure or seizure-like activity. She reports some memory loss of late and just an overall sense of not feeling steady on her feet. She is aware of her B12 deficiency and was previously on injections but "stopped them because I didn't feel any different on them." She has not been taking any oral B12 supplement either. Allergies Allergy/AdvReac Type Severity Reaction Status Date / Time Sulfa (Sulfonamide Allergy Intermediate Hives Verified 07/28/19 15:36 Antibiotics) adhesive Allergy Mild "rips skin Verified 07/28/19 15:36 off" hydroxychloroquine Allergy Mild vomiting Verified 07/28/19 15:36 lisinopril Allergy Mild Cough Verified 07/28/19 15:36 Home Medications Home Medications Medication Instructions Recorded Confirmed Type albuterol sulfate 90 mcg/actuation 1 - 2 puffs INH Q4H PRN gm 03/06/19 10/06/19 History aerosol inhaler cholecalciferol (vitamin D3) 1,250 50,000 units PO WEEKLY #4 cap 03/18/19 10/06/19 Rx mcg (50,000 unit) capsule levothyroxine [Synthroid] 75 mcg PO QAM 07/28/19 10/06/19 History prednisone 2.5 mg PO QAM 07/28/19 10/06/19 History Past Med/Surg History Medical History Asthma allergy induced--inhaler prn Chronic back pain Degenerative disc disease Dyslipidemia (Acute) Generalized osteoarthritis of multiple sites (Acute) History of colon polyps Hyperplastic colon polyp Hypothyroidism Liver mass hx of, removed @ [facility] - benign Nausea and vomiting after administration of anesthetic agent Osteoarthritis Osteopenia (Acute) Spinal stenosis Vitamin B12 deficiency (Acute) Vitamin D deficiency (Acute) Surgical History History of ankle surgery right History of arthroscopy of left knee History of arthroscopy of right knee History of bilateral cataract extraction History of dilatation and curettage x2 History of lumbar discectomy History of lumbar spinal fusion History of open reduction and internal fixation (ORIF) procedure right wrist--hardware in place History of surgery of liver 2014 @ [facility] [place] History of total hysterectomy with bilateral salpingo-oophorectomy (BSO) S/P cholecystectomy S/P colonoscopic polypectomy S/P knee surgery bilateral knee replacement. 1997 Dr. Michael Family History Mother Colon cancer Ovarian cancer Diabetes Type 2 diabetes mellitus Acute myocardial infarction Father Congestive heart failure Lung cancer Sister Type 2 diabetes mellitus Arthritis Daughter Arthritis Thyroid disease Family history of reaction to anesthesia nausea/vomiting Son Hypertension Family/Other Arthritis Asthma Unknown VTE (venous thromboembolism) Daughter Family history of reaction to anesthesia nausea/vomiting Social History (Updated 10/06/19 @ 13:14 by Wojciech Lance) Preferred Language: Sami Communication Ability: Effective Visual Impairment: No Limitations Hearing Ability: Normal 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 Beliefs That Will Affect Care: None marital status: / Current Living Situation: Family Current Living Situation Comment: Lives with grandson Other Information That Helps Us Care for You: No other: is ; 3 children Feels Safe at Home: Yes Safety Concerns: Feels Safe At This Time Smoking Status: Never smoker Tobacco Type: cigarettes ; Age Started Using Tobacco: 16 ; Age Quit Using Tobacco: 16 ; Do You Dip or Chew Tobacco: No ; Second Hand Exposure: Yes (parents smoked) ; Tobacco Cessation Education Requested by Patient: No Hx Alcohol Use: Yes Alcohol type: beer Alcohol Intake Frequency: Daily Hx Substance Use: No Childhood Exposure to Second-Hand Smoke: Yes Seatbelt Use: always Sunscreen Use: Yes Review of Systems Constitutional: no fever, no chills, no fatigue, no anorexia, no weight loss and no weight gain Eyes: + worsening vision blurry vision; no visual field cuts Ear, Nose, Mouth, Throat: no nasal congestion, no nasal discharge and no sore throat Respiratory: no cough, no dyspnea, no dyspnea on exertion and no wheezing Cardiovascular: + palpitations and + lightheadedness; no chest pain, no dyspnea, no orthopnea, no paroxysmal nocturnal dyspnea and no edema Gastrointestinal: + abdominal pain ("tenderness" = right side of abdomen; chronic ), + nausea and + vomiting (since last pm); no constipation and no diarrhea/loose stools Genitourinary: no dysuria foul-smelling urine Musculoskeletal: + back pain, + joint pain and + myalgia; no neck pain Integumentary: no rash Neurologic: + gait abnormality and + unsteadiness; no localized weakness and no loss of sensation Psychiatric: no depression and no anxiety Endocrine: no polydipsia and no polyuria Hematologic / Lymphatic: + easy bruising Physical Exam Constitutional: + obese; no acute distress and no altered mental status Eyes: + anicteric sclerae and PERRL no nystagmus; visual rey full by direct confrontation ENMT: Mouth: + dry oral mucous membranes; no oropharynx abnormality Neck: trachea midline, no thyromegaly Respiratory: normal respiratory effort, lungs clear to auscultation Cardiovascular: Rate/Rhythm: + irregularly irregular (extra beats) Heart Sounds: normal S1 and normal S2; no murmur Vessels: posterior tibial pulses present and dorsalis pedis pulses present; no JVD Extremities: no edema Chest (Breasts): Additional Comments: mildly tender b/l lower costal margins - worse on right Gastrointestinal (Abdomen): Inspection/Auscultation: abdomen not distended Percussion/Palpation: + abdomen tender (minimally tender RUQ and right costal margin ) and abdomen soft; no guarding and no hepatosplenomegaly Musculoskeletal: b/l knee replacement scars; ecchymoses over both knees; no obvious deformity of any arm or leg Skin: no rashes, warm and dry Trauma: + evidence of skin trauma (ecchymoses both knees; no bruising over lower chest wall ) Neurologic: deep tendon reflexes 2+ bilaterally and moves all extremities; no focal motor deficits Motor/Sensory: no tremor and no pronator drift Cranial Nerves: PERRL, EOM intact bilaterally, normal facial strength, tongue midline, able to elevate shoulders bilaterally, no nystagmus and symmetric palate elevation Coordination: normal [id number] test Psychiatric: Orientation: alert and oriented x 3 Lymphatic: no cervical lymphadenopathy Results & Data Results & Data ([facility]) Vital Signs (Past 12 Hours) Vital Signs Temp Pulse Resp BP Pulse Ox 10/06/19 11:30 88 14 97 10/06/19 11:18 82 12 172/92 H 96 10/06/19 11:16 86 14 10/06/19 10:36 80 19 96 10/06/19 10:35 92 H 13 186/128 H 96 10/06/19 10:32 90 20 94 10/06/19 10:01 82 17 177/118 H 10/06/19 09:31 80 20 177/86 H 96 10/06/19 09:08 36.5 C 67 16 198/83 H 97 Laboratory Results Laboratory Results - last 24 hr 10/06/19 10/06/19 10/06/19 09:32 09:32 09:32 WBC 8.16 RBC 4.52 Hgb 15.0 POC Hgb Hct 43.9 POC Hct MCV 97.1 MCH 33.2 MCHC 34.2 RDW Std Deviation 48.1 H RDW Coeff of Messi 13.5 Plt Count 305 MPV 9.5 Immature Gran % (Auto) 0.1 Neut % (Auto) 61.9 Lymph % (Auto) 28.9 [place] % (Auto) 6.5 Eos % (Auto) 2.2 Baso % (Auto) 0.4 Immature Gran # (Auto) 0.01 Neut # (Auto) 5.05 Lymph # (Auto) 2.36 [place] # (Auto) 0.53 Eos # (Auto) 0.18 Baso # (Auto) 0.03 PT Cancelled INR Cancelled APTT Cancelled PTT Ratio Cancelled POC Sodium Sodium 140 POC Potassium Potassium 3.6 POC Chloride Chloride 109 H Carbon Dioxide 24 POC Total CO2 Anion Gap 7.0 POC Anion Gap POC BUN BUN 8 Creatinine 0.72 POC Creatinine Est Cr Clr Drug Dosing 83.1 Est GFR ( Amer) 96.3 Est GFR (Non-Af Amer) 83.1 BUN/Creatinine Ratio 10.9 Glucose 152 H POC Glucose POC Glucose (other) Calcium 8.6 POC Ioniz Calcium Crescencio Magnesium 2.2 Total Bilirubin 0.6 AST 48 H ALT 40 Alkaline Phosphatase 98 Total Creatine Kinase Troponin I 0.030 Total Protein 7.3 Albumin 3.4 Globulin 3.9 Albumin/Globulin Ratio 0.9 Vitamin B12 Urine Color Urine Appearance Urine pH Ur Specific [place] Urine Protein Urine Glucose (UA) Urine Ketones Urine Blood Urine Nitrite Urine Bilirubin Urine Urobilinogen Ur Leukocyte Esterase Urine WBC (Auto) Urine RBC (Auto) U Hyaline Cast (Auto) U Epithel Cells (Auto) Urine Bacteria (Auto) 10/06/19 10/06/19 10/06/19 09:32 09:37 09:43 WBC RBC Hgb POC Hgb 14.6 Hct POC Hct 43 MCV MCH MCHC RDW Std Deviation RDW Coeff of Messi Plt Count MPV Immature Gran % (Auto) Neut % (Auto) Lymph % (Auto) [place] % (Auto) Eos % (Auto) Baso % (Auto) Immature Gran # (Auto) Neut # (Auto) Lymph # (Auto) [place] # (Auto) Eos # (Auto) Baso # (Auto) PT INR APTT PTT Ratio POC Sodium 141 Sodium POC Potassium 3.8 Potassium POC Chloride 106 Chloride Carbon Dioxide POC Total CO2 23 L Anion Gap POC Anion Gap 16.0 POC BUN 7 BUN Creatinine POC Creatinine 0.6 Est Cr Clr Drug Dosing Est GFR ( Amer) Est GFR (Non-Af Amer) BUN/Creatinine Ratio Glucose POC Glucose 133 H POC Glucose (other) 145 H Calcium POC Ioniz Calcium Crescencio 1.11 L Magnesium Total Bilirubin AST ALT Alkaline Phosphatase Total Creatine Kinase 158 Troponin I Total Protein Albumin Globulin Albumin/Globulin Ratio Vitamin B12 Urine Color Urine Appearance Urine pH Ur Specific [place] Urine Protein Urine Glucose (UA) Urine Ketones Urine Blood Urine Nitrite Urine Bilirubin Urine Urobilinogen Ur Leukocyte Esterase Urine WBC (Auto) Urine RBC (Auto) U Hyaline Cast (Auto) U Epithel Cells (Auto) Urine Bacteria (Auto) 10/06/19 10/06/19 10/06/19 12:01 13:04 16:13 WBC RBC Hgb POC Hgb Hct POC Hct MCV MCH MCHC RDW Std Deviation RDW Coeff of Messi Plt Count MPV Immature Gran % (Auto) Neut % (Auto) Lymph % (Auto) [place] % (Auto) Eos % (Auto) Baso % (Auto) Immature Gran # (Auto) Neut # (Auto) Lymph # (Auto) [place] # (Auto) Eos # (Auto) Baso # (Auto) PT INR APTT PTT Ratio POC Sodium Sodium POC Potassium Potassium POC Chloride Chloride Carbon Dioxide POC Total CO2 Anion Gap POC Anion Gap POC BUN BUN Creatinine POC Creatinine Est Cr Clr Drug Dosing Est GFR ( Amer) Est GFR (Non-Af Amer) BUN/Creatinine Ratio Glucose POC Glucose POC Glucose (other) Calcium POC Ioniz Calcium Crescencio Magnesium Total Bilirubin AST ALT Alkaline Phosphatase Total Creatine Kinase Troponin I 0.030 Total Protein Albumin Globulin Albumin/Globulin Ratio Vitamin B12 234 Urine Color Yellow Urine Appearance Clear Urine pH 6.5 Ur Specific [place] > 1.045 H Urine Protein Negative Urine Glucose (UA) Negative Urine Ketones Negative Urine Blood Negative Urine Nitrite Negative Urine Bilirubin Negative Urine Urobilinogen Negative Ur Leukocyte Esterase 2+ H Urine WBC (Auto) >30 H Urine RBC (Auto) 0-4 U Hyaline Cast (Auto) 1-5 U Epithel Cells (Auto) >30 H Urine Bacteria (Auto) Negative 10/06/19 20:20 WBC RBC Hgb POC Hgb Hct POC Hct MCV MCH MCHC RDW Std Deviation RDW Coeff of Messi Plt Count MPV Immature Gran % (Auto) Neut % (Auto) Lymph % (Auto) [place] % (Auto) Eos % (Auto) Baso % (Auto) Immature Gran # (Auto) Neut # (Auto) Lymph # (Auto) [place] # (Auto) Eos # (Auto) Baso # (Auto) PT INR APTT PTT Ratio POC Sodium Sodium POC Potassium Potassium POC Chloride Chloride Carbon Dioxide POC Total CO2 Anion Gap POC Anion Gap POC BUN BUN Creatinine POC Creatinine Est Cr Clr Drug Dosing Est GFR ( Amer) Est GFR (Non-Af Amer) BUN/Creatinine Ratio Glucose POC Glucose 127 H POC Glucose (other) Calcium POC Ioniz Calcium Crescencio Magnesium Total Bilirubin AST ALT Alkaline Phosphatase Total Creatine Kinase Troponin I Total Protein Albumin Globulin Albumin/Globulin Ratio Vitamin B12 Urine Color Urine Appearance Urine pH Ur Specific [place] Urine Protein Urine Glucose (UA) Urine Ketones Urine Blood Urine Nitrite Urine Bilirubin Urine Urobilinogen Ur Leukocyte Esterase Urine WBC (Auto) Urine RBC (Auto) U Hyaline Cast (Auto) U Epithel Cells (Auto) Urine Bacteria (Auto) Diagnostic Findings CT abd/pelvis - IMPRESSION: 1. No acute intra-abdominal or intrapelvic abnormality identified. 2. No evidence of acute solid organ injury or acute fracture. 3. 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 4. Diastases recti with ventral abdominal wall hernias including a hernia which contains a nonobstructed loop of small bowel. 5. Colonic diverticulosis without acute diverticulitis. 6. Additional findings as above. Head CT - no ICH, no stroke Head/neck CTA - moderate left COURSE INSTRUCTOR stenosis o/w negative CXR - no infiltrates humerus x-ray Left - neg for fracture pelvic x-rays - no pelvic or hip fractures b/l EKG - NSR, PAC, prolonged QTc Code Status & VTE Plan Code Status full VTE Prophylaxis Plan VTE Prophylaxis will be ordered: Yes PG Care Time/CCT Total # of Minutes Spent Total Time Spent with Patient: Total time spent is greater than 50% in coordination of care (as documented) at patient's floor/unit and/or counseling patient: Coding Level of Care Code 69164 OBS Care - Level 3 Diagnoses Vomiting R11.10 Vomiting type: unspecified Vomiting Intractability: unspecified Nausea presence: unspecified Dizziness R42 Falls W19.XXXA Encounter type: initial encounter Syncope R55 Syncope type: unspecified Vitamin B12 deficiency E53.8 Prolonged QT interval R94.31 Type 2 diabetes mellitus E11.9 Diabetes mellitus shelter insulin use: without rod piler use Diabetes mellitus complication status: without complication PVT (portal vein thrombosis) I81 Generalized osteoarthritis of multiple sites M15.9 Asthma J45.20 Asthma severity: mild Asthma persistence: intermittent Asthma complication type: unspecified Hypothyroid E03.9 Hypothyroidism type: acquired DVT prophylaxis Z29.9 (1) Type 2 diabetes mellitus Diabetes mellitus rod piler insulin use: without rod piler use Diabetes mellitus complication status: without complication Qualified Code(s): E11.9 - Type 2 diabetes mellitus without complications (2) Hypothyroid Hypothyroidism type: acquired Qualified Code(s): E03.9 - Hypothyroidism, unspecified (3) Falls Encounter type: initial encounter Qualified Code(s): W19.XXXA - Unspecified fall, initial encounter (4) Asthma Asthma severity: mild Asthma persistence: intermittent Asthma complication type: unspecified Qualified Code(s): J45.20 - Mild intermittent asthma, uncomplicated (5) Syncope Syncope type: unspecified Qualified Code(s): R55 - Syncope and collapse (6) Vomiting Vomiting type: unspecified Vomiting Intractability: unspecified Nausea presence: unspecified Qualified Code(s): R11.10 - Vomiting, unspecified
[2019-10-06 12:23] LABS: Appearance Urine Clear (Clear); Bacteria Urine Automated Negative (Negative); Bilirubin Urine Negative (Negative); Blood Urine Negative (Negative); Color Urine Yellow; Epithelial Cell Urine Auto >30 /lpf (0-5); Glucose Urine UA Negative (Negative); Ketones Urine Negative (Negative); Leukocyte Esterase Urine 2+ (Negative); Nitrite Urine Negative (Negative); Protein Urine Negative (Negative); RBC Urine Automated 0-4 /hpf (0-4); Specific Gravity Urine > 1.045 (1.000-1.030); Urobilinogen Urine Negative (Negative); WBC Urine Automated >30 /hpf (0-5); pH Urine 6.5 (4.5-7.5)
[2019-10-06] MEDS ORDERED: SODIUM CHLORIDE 0.9% 1000ML 1,000 ML IV SCH (13:15)
--- NOTE | 2019-10-06 14:56 | Electrocardiogram Report ---
Test Reason : Blood Pressure : / mmHG Vent. Rate : 081 BPM Atrial Rate : 081 BPM P-R Int : 180 ms QRS Dur : 086 ms QT Int : 432 ms P-R-T Axes : 012 022 067 degrees QTc Int : 501 ms Sinus rhythm with Premature atrial complexes Prolonged QT Abnormal ECG When compared with ECG of 06-MAR-2019 18:23, Premature atrial complexes are now Present Confirmed by Kraig Noriega ([id number]) on 10/06/2019 2:55:49 PM Referred By: ED Confirmed By:Kraig Noriega
[2019-10-06] MEDS ORDERED: ACETAMINOPHEN 325 MG TAB PO PRN (16:06)
[2019-10-06] MEDS ORDERED: ONDANSETRON INJ 2 MG/ML 2 ML VIAL IV PRN (16:06)
[2019-10-06] MEDS ORDERED: ALBUTEROL HFA 8 GM INHALER INH PRN (16:06)
--- NOTE | 2019-10-06 17:47 | Magnetic Resonance Report ---
MR brain wo con HISTORY: Mental status change syncope, memory loss, falls TECHNIQUE: Multiplanar multisequence MRI of the brain was performed without the use of contrast. COMPARISON STUDY: 03/17/2019 FINDINGS: There are no areas of restricted diffusion to suggest acute infarction. The midline structu res are intact. The paranasal sinuses are clear. The mastoid air cells are clear. The ventricles and sulci are within normal limits for age. There is no mass, hematoma, midline shift. The major vascular flow-voids at the skull base are well maintained. IMPRESSION: No acute intracranial abnormality. No change from the prior study. ACT 112: Negative or not required by law. The above report was generated using voice recognition software. It may contain grammatical, syntax or spelling errors. Electronically signed by: Anthony Omalley M.D. 10/06/2019 5:45 PM
[2019-10-06] MEDS: HEPARIN SOD 5,000 UNIT/0.5 ML VIAL SQ SCH ×2 (17:50→20:09)
[2019-10-06] MEDS: CEROVITE ADV FORMULA TAB PO SCH (17:51)
[2019-10-06] MEDS: DICLOFENAC SOD 1% GEL 100 GM TUBE EXT SCH ×2 (17:52→20:02)
[2019-10-06] MEDS: predniSONE 10 MG TABLET PO SCH (17:52)
[2019-10-06] MEDS: THIAMINE HCL 100 MG TAB PO SCH ×2 (17:52→20:03)
--- NOTE | 2019-10-06 19:49 | XRay Report ---
XR ribs BI min 3V CLINICAL HISTORY: fall, right lower rib pain; eval Fx COMPARISON: None. DISCUSSION: Nondisplaced cortical fractures left fifth and sixth ribs. All remaining bilateral ribs a re unremarkable. No additional acute abnormalities appreciated. Lungs are considered clear. No evidence for pneumothorax. There is no evidence for soft tissue swelli ng. IMPRESSION: 1. Nondisplaced cortical fractures anterior left fifth and sixth ribs. 2. Otherwise negative study. 3. The lungs are clear. ACT 112: Negative or not required by law. The above report was generated using voice recognition software. It may contain grammatical, syntax or spelling errors. Electronically signed by: Anthony Omalley M.D. 10/06/2019 7:48 PM
[2019-10-06] MEDS: CYANOCOBALAMIN 1000 MCG/ML VIAL IM SCH (20:01)
[2019-10-06] MEDS ORDERED: LIDOCAINE 5% 1 PATCH TD SCH (20:30)
[2019-10-06] MEDS: FAMOTIDINE 20 MG in SYRINGE 3 ML IV SCH (21:13)
[2019-10-07] MEDS: HEPARIN SOD 5,000 UNIT/0.5 ML VIAL SQ SCH ×2 (05:55→12:48)
[2019-10-07 06:34] LABS: BUN Creatinine Ratio 8.5 (10-20); Calcium 8.3 mg/dl (8.5-10.1); Creatinine Clr Calc Pharmacy 87.5 ml/min; Est GFR (African American) 100.6; Est GFR (Non-African American) 86.8; Potassium 3.8 mmol/L (3.5-5.1)
[2019-10-07 06:50] LABS: Estimated Average Glucose 128 mg/dl; Hemoglobin A1C 6.1 % (4.5-5.6)
[2019-10-07] MEDS: FAMOTIDINE 20 MG in SYRINGE 3 ML IV SCH (07:59)
[2019-10-07] MEDS: THIAMINE HCL 100 MG TAB PO SCH (07:59)
[2019-10-07] MEDS: predniSONE 10 MG TABLET PO SCH (08:00)
[2019-10-07] MEDS: CYANOCOBALAMIN 1000 MCG/ML VIAL IM SCH (08:00)
[2019-10-07] MEDS: CEROVITE ADV FORMULA TAB PO SCH (08:00)
[2019-10-07] MEDS: DICLOFENAC SOD 1% GEL 100 GM TUBE EXT SCH ×2 (08:07→12:48)
--- NOTE | 2019-10-07 09:39 | Neurology Consultation ---
Date of Consultation October 07, 2019 Assessment & Plan (1) Syncope: Probable vasovagal/neurocardiogenic syncope. The reported episodes are not very suggestive of seizures or vertebrobasilar insufficiency. No evidence of VBI on recently completed CT angiography. Would not recommend pursuing an EEG at this time. Furthermore, this patient does not have any clinical signs or symptoms that would otherwise suggest autonomic nervous system failure, Parkinson's disease, or another related neurodegenerative condition that would associate with syncope. Therefore, at this time I would recommend pursuing cardiology consultation (outpatient?) with potential for extended cardiac monitoring/loop recorder and tilt table testing. I do not have a specific pharmacologic treatment to offer this patient at this time. However, I discussed the importance of problem and situational awareness with the patient, the potential utility of counterpressure maneuvers, and maintaining adequate hydration. The role of beta-blockers and blood pressure supporting medications in neurocardiogenic or reflex type syncope is not clearly defined and I would prefer that cardiology make these specific recommendations if appropriate. If this patient's additional cardiovascular evaluations are unremarkable and if she were to continue to experience recurrent spells then it may be reasonable to consider obtaining a routine and/or possibly prolonged EEG. Prolonged EEG monitoring would need to be coordinated with an epilepsy specialist at a tertiary center, however. Please contact me if I may be of further assistance. History of Present Illness Reason for Consultation: Syncope versus other spells Requesting Physician: Wojciech Lance MD Attending Physician: Walter Rodríguez DO History of Present Illness The patient is a 74-year-old female with a chief complaint of recurrent falls an d associated dizziness occurring over the past year but increasing in frequency over the past few days. She reports that these episodes typically occur when she is upright. She complains of associated transient blurry vision as well. She has been observed to exhibit a blank stare during these episodes. On occasion she will then fall to the ground with associated loss of consciousness, but without observed convulsive activity. The most recent episode, just prior to admission, occurred while carrying some clothing from the laundry room. She has also been complaining of nausea and emesis recently, without associated abdominal pain or diarrhea. Upon further questioning, the patient does not believe any of the episodes have been associated with coughing, sneezing, micturition, defecation, laughter, emotional distress, or pain. The patient denies a history of epilepsy or seizure disorder although does report that she has a daughter who had febrile seizures in childhood although grew out of this condition. The patient's blood pressure was notably elevated yesterday, she is not on antihypertensive therapy. Her blood pressure appears to be normal this morning. Allergies Allergy/AdvReac Type Severity Reaction Status Date / Time Sulfa (Sulfonamide Allergy Intermediate Hives Verified 07/28/19 15:36 Antibiotics) adhesive Allergy Mild "rips skin Verified 07/28/19 15:36 off" hydroxychloroquine Allergy Mild vomiting Verified 07/28/19 15:36 lisinopril Allergy Mild Cough Verified 07/28/19 15:36 Home Medications Home Medications Medication Instructions Recorded Confirmed Type albuterol sulfate 90 mcg/actuation 1 - 2 puffs INH Q4H PRN gm 03/06/19 10/06/19 History aerosol inhaler cholecalciferol (vitamin D3) 1,250 50,000 units PO WEEKLY #4 cap 03/18/19 10/06/19 Rx mcg (50,000 unit) capsule levothyroxine [Synthroid] 75 mcg PO QAM 07/28/19 10/06/19 History prednisone 2.5 mg PO QAM 07/28/19 10/06/19 History Patient History Medical History Asthma allergy induced--inhaler prn Chronic back pain Degenerative disc disease Dyslipidemia (Acute) Generalized osteoarthritis of multiple sites (Acute) History of colon polyps Hyperplastic colon polyp Hypothyroidism Liver mass hx of, removed @ [facility] [place] - benign Nausea and vomiting after administration of anesthetic agent Osteoarthritis Osteopenia (Acute) Spinal stenosis Vitamin B12 deficiency (Acute) Vitamin D deficiency (Acute) Surgical History History of ankle surgery right History of arthroscopy of left knee History of arthroscopy of right knee History of bilateral cataract extraction History of dilatation and curettage x2 History of lumbar discectomy History of lumbar spinal fusion History of open reduction and internal fixation (ORIF) procedure right wrist--hardware in place History of surgery of liver 2014 @ [facility] [place] History of total hysterectomy with bilateral salpingo-oophorectomy (BSO) S/P cholecystectomy S/P colonoscopic polypectomy S/P knee surgery bilateral knee replacement. 1997 Dr. Michael Family History Mother Colon cancer Ovarian cancer Diabetes Type 2 diabetes mellitus Acute myocardial infarction Father Congestive heart failure Lung cancer Sister Type 2 diabetes mellitus Arthritis Daughter Arthritis Thyroid disease Family history of reaction to anesthesia nausea/vomiting Son Hypertension Family/Other Arthritis Asthma Unknown VTE (venous thromboembolism) Daughter Family history of reaction to anesthesia nausea/vomiting Social History Preferred Language: Luxembourger Communication Ability: Effective Visual Impairment: No Limitations Hearing Ability: Normal Technical Writer Required: No Beliefs That Will Affect Care: None marital status: / Current Living Situation: Family Current Living Situation Comment: Lives with grandson Other Information That Helps Us Care for You: No other: is ; 3 children Feels Safe at Home: Yes Safety Concerns: Feels Safe At This Time Smoking Status: Never smoker Tobacco Type: cigarettes ; Age Started Using Tobacco: 16 ; Age Quit Using Tobacco: 16 ; Do You Dip or Chew Tobacco: No ; Second Hand Exposure: Yes (parents smoked) ; Tobacco Cessation Education Requested by Patient: No Hx Alcohol Use: Yes Alcohol type: beer Alcohol Intake Frequency: Daily Hx Substance Use: No Childhood Exposure to Second-Hand Smoke: Yes Seatbelt Use: always Sunscreen Use: Yes Review of Systems Constitutional: no fever and no chills Eyes: no blind spots and no diplopia Ear, Nose, Mouth, Throat: no hearing loss Respiratory: no cough and no dyspnea Cardiovascular: no chest pain and no palpitations Gastrointestinal: as per Subjective / HPI, + nausea and + vomiting Genitourinary: no dysuria and no urinary incontinence Musculoskeletal: + joint pain; no myalgia and no muscle weakness Integumentary: no rash and no lesions Neurologic: as per Subjective / HPI, + dizziness and + syncope; no headache(s) and no confusion Psychiatric: no depression and no anxiety Hematologic / Lymphatic: no easy bleeding and no easy bruising Exam (Neuro) Constitutional: well developed and well nourished; no acute distress Eyes: normal visual rey by confrontation, PERRL, normal accommodation and EOM intact bilaterally; no nystagmus Direct ophthalmoscopic examination deferred due to requirement to wear face shield in the context of the current COVID-19 pandemic. Cardiovascular: Vessels: normal carotid upstroke; no carotid bruit Neurologic: Oriented to:: Person, Place and Time Memory: Short Term Intact and Remote Intact Attention: Span Intact and Concentration Intact Language: Naming Objects and Repeating Phrases Speech Fluency: negative Dysarthria Speech Aphasia: negative Aphasia Fund of Knowledge: Current Events, Past History and Vocabulary Cranial Nerves: Normal II (Visual rey full to confrontation, visual acuity normal), III, IV, (Pupils equal round reactive to light and accommodation, eye movements normal), V (Facial sensation intact), VII (There is no facial droop or weakness), VIII (Hearing intact), IX, X (Palate elevates to midline), XI (Shoulder shrug intact) and XII (Tongue protrudes to midline) Motor Strength: Normal Lower Extremities and Normal Upper Extremities; negative Pronator Drift Motor Tone: Normal Lower Extremities and Normal Upper Extremities Muscle Bulk/Involuntary Movements: No Involuntary Movements; negative Muscle Atrophy Sensation: Light Touch Intact, Pain/Temperature Intact, Vibration Intact and Proprioception Intact Coordination: Normal; negative Limited Balance, Dysdiadochokinesia, Finger-Nose Abnormal and Heel-Davis Abnormal Deep Tendon Reflexes: Rt Triceps: 2+, Lt Triceps: 2+, Rt Biceps: 2+, Lt Biceps: 2+, Rt Brachioradialis: 2+, Lt Brachioradialis: 2+, Rt Patellar: 2+, Lt Patellar: 2+, Rt Ankle: 2+ and Lt Ankle: 2+ Special Tests: negative Babinski Present Gait: Normal Station and Gait Results & Data ([facility]) Vital Signs (Past 12 Hours) Vital Signs Temp Pulse Pulse Resp BP BP Pulse Ox 10/07/19 07:22 74 10/07/19 07:14 36.4 C L 76 16 122/60 96 10/07/19 03:13 36.6 C 91 H 18 123/61 93 10/07/19 01:07 86 10/06/19 23:31 37.1 C 92 H 18 163/95 H 93 Laboratory Results WBC 8.16, hemoglobin 15.0, hematocrit 43.9, platelet count 305, sodium 144, potassium 3.8, BUN 6, creatinine 0.68, glucose 119, hemoglobin A1c 6.1, vitamin B12 level 234 Diagnostic Findings Brain MRI completed yesterday reveals mild cerebrovascular disease. No evidence of acute or subacute stroke. No significant parenchymal disease. No hydrocephalus. I reviewed the images as well as the radiologist's interpretation of this test. CT angiography of the neck unremarkable, no evidence of significant carotid or vertebral artery stenosis. CT angiography of the head unremarkable. There is a moderate stenosis of the left posterior cerebral artery. No aneurysm. I reviewed the images as well as the radiologist interpretation of these tests. An electrocardiogram reveals a sinus rhythm with premature atrial complexes, prolonged QT interval, 81 bpm. An echocardiogram completed in March 2019 revealed normal left ventricular size, mild concentric LVH, ejection fraction 55 to 60% without regional wall motion abnormalities. Left atrium mildly dilated. Interatrial septum intact, no ASD. Coding Level of Care Code 23016 Initial Inpt Care Lvl 3 Diagnoses Syncope R55 Syncope type: unspecified (1) Syncope Syncope type: unspecified Qualified Code(s): R55 - Syncope and collapse
--- NOTE | 2019-10-07 18:29 | Discharge Summary ---
Date of Service October 07, 2019 Admission HPI Per Admitting Provider 74yo female with history of hypothyroidism, ?HTN, pre-DM, and OA of numerous joints (takes prednisone 2.5mg daily for such since 2019) who presents from home due to multiple episodes of emesis starting last night. Patient states she had a steak dinner prepared by her grandson last night along with a beer and late evening she started to have nausea with emesis. She then had 3 additional episodes of emesis in the middle of the night, and then a 4th episode in the car about 800am this morning. Denies nausea at this time. Denies abdominal pain although she states "she has a tenderness" in the right side of her abdomen chronically. No diarrhea. No constipation. No dysuria but reports her urine is foul-smelling -- also chronic however. She has not had emesis in the ER since arrival. Additionally she has had chronic dizziness for at least 1 year. I spoke with her daughter by phone (Kinga) and she reported the dizziness was closer to 2 years. The dizziness is described as a lightheadedness/fogginess - like "she could pass out." It does not occur at rest. There is no spinning or vertigo. She feels "funny" for about 30-60 seconds then will fall to the ground. She does lose consciousness at times but not every occasion. She has had at least 3 episodes like this in the last 2 weeks with the most recent event being yesterday. Yesterday's syncopal event/fall occurred while carrying clothes from her dryer back to her bedroom. She remembers feeling dizzy, got into her bedroom and went to the dresser, turned and then went to the ground. She briefly lost consciousness. The episodes are not associated with chest pain, dyspnea, or palpitations. She does not feel sweaty. Her family has told her that prior to falling/passing out she "stares ahead." However, no one has seen any seizure or seizure-like activity. She reports some memory loss of late and just an overall sense of not feeling steady on her feet. She is aware of her B12 deficiency and was previously on injections but "stopped them because I didn't feel any different on them." She has not been taking any oral B12 supplement either. Principal Diagnosis vomiting resolved syncope - see hospital course section Discharge Exam gen aao [facility] at m breathing unlabored no accessory muscles good effort skin no rashes no pallor or icterus neuro no focal deficits Discharge Data Allergies Allergy/AdvReac Type Severity Reaction Status Date / Time Sulfa (Sulfonamide Allergy Intermediate Hives Verified 07/28/19 15:36 Antibiotics) adhesive Allergy Mild "rips skin Verified 07/28/19 15:36 off" hydroxychloroquine Allergy Mild vomiting Verified 07/28/19 15:36 lisinopril Allergy Mild Cough Verified 07/28/19 15:36 Consultations 10/06/19 18:52 Consult Neurology Routine Ordered Studies 10/06/19 09:20 CT angio head w con Stat CT angio neck with con Stat CT head/brain wo con Stat 10/06/19 09:26 CT abd pelvis IV con only Stat 10/06/19 16:06 MR brain wo con Routine Hospital Course (1) Vomiting: w/u negative and quickly resolved -- nonspecific (indigestion vs short lived viral) -- ate well and safe/stable for home (2) Dizziness: sounds vasoactive - always when standing, sometimes resulting in true syncope neuro eval - did not find anything neurologic in nature to explain her sx ddx at this point rhythm (none of concern seen here, although QT longer end of normal; check event monitor) vs neurodepressor/neurocardiogenic --> outpt cardiology eval. (3) Falls: see "dizziness" above. PT, OT evals - stable for home bone health management ongoing by PCP encouraged safety (4) Syncope: see discussion above in "dizziness" and "falls. (5) Vitamin B12 deficiency: x 2 years. noncompliant w/ injections or PO supplementation. -discussed importance of treating this even if she hasn't felt different (although dtr notes that pt has told her at times she feels "foggy" without the supplements) -- will treat PO so that she has it available, encourage IM in the office if she's willing; either way repeat B12 ~3-4 months (6) Prolonged QT interval: K and mag wnl. event monitor as above (7) Type 2 diabetes mellitus: A1c 6.1, but not on any meds at home - so simply outpatient observation (8) PVT (portal vein thrombosis): Chronic per imaging. Related to prior liver mass resection? Since it is chronic no need for anticoagulation at this time. (9) Generalized osteoarthritis of multiple sites: Sees [facility]. Takes chronic prednisone 2.5mg daily prescribed by [facility] for this issue. (10) Asthma: No exacerbation. Albuterol prn. (11) Hypothyroid: TSH 02/2019 wnl. Cont synthroid 75mcg daily. (12) DVT prophylaxis: heparin 5000 TID utilized during her stay (13) Rib fractures: almost certainly from falls, possibly osteoporotic. fortunately pain control fairly easy to attain. Total Time Total Time Spent Total Time Spent (In Minutes): >30 Discharge Plan Discharge Items Patient Disposition: Home - Self-Care Reason For Visit: VOMITING, FALLS,SYNCOPE Discharge Diagnosis: vomiting - resolved, see below otherwise Activity: Resume your previous activity Non-emergency contact: Primary Care Provider and [employer] Call non-emergency contact if: you have any medication questions, your symptoms worsen, your pain is not controlled, your pain is worsening, your pain is unusual for you, your pain is concerning for you and you have a fever Follow-up/Referrals: Fatemeh Cooper MD [Primary Care Provider] - Diet: Carb Consistent or DM2 Addtl Attending Provider Instructions: vomiting - fortunately your vomiting quickly resolved. as we discussed, causes of vomiting that go away quickly are usually things like a bad bout of indigestion, or a quickly passing stomach bug. as long as it doesn't recur you can look at this as something that has passed fainting/falling spells -this certainly seems to be the biggest issue going on with you right now -as we discussed, the main two possible causes that appear likely would be some type of abnormal heart rhythm, or a problem with how your nerves and blood vessels communicate (in the family of what are called neurodepressor or neurocardiogenic problems, or less likely be similar a process called autonomic instability) -to get to the bottom of this, i'd recommend a few-step process: -heart monitor - while we didn't see anything overtly causative on your monitoring here, heart monitoring in the hospital is a temporary thing under unrealistic conditions. far better is to get you set up with a 2 week monitor you'll wear at home so that we can follow you for a while, under your usual circumstances, and also likely capture an event or two when they happen. our team is setting this up - expect a call from the cardiology office for when to get it -cardiology evaluation - we've asked to get you set up with Dr Hewitt to clinically evaluate for the neurcardiogenic causes - things seems suspicious that this is what is going on, but he'll be able to be more expert at not only "is it in that family of problems" but narrowing down exactly what, if that is what is going on -in the meantime, please practice safety first - if you feel like you're going to fall, sit down right away - it's always safer to get to the ground voluntarily, and when people low in vitamin D fall, there's a much bigger chance of breaking bones broken ribs -your rib Xrays did show that your left fifth and sixth ribs were broken - almost certainly because of a fall. typically rib pain does well with things like lidocaine patches - because the ribs are shallow enough that the patch is able to get through the skin and numb the rib a little bit -Dr Schultz will keep working with you for the low vitamin D and your overall bone health to try to minimize the risk of future fractures - but again as above - think safety first so that you don't have a more serious fracture (like a hip) low B12 -even if you're not really noticing a difference when you're on B12 or not, your levels are low enough that it would be effecting your nerves in bad ways - even if it's subtle and over time. -it would be good to get back on with the B12 shots at Dr Schultz's, but also as we discussed, a lot of people do well with oral b12, as long as we give a big dose (like 1000mcg) and have you take it EVERY DAY --> either way we'll want Dr Schultz to repeat labs in 3-4 months to make sure your levels are climbing appropriately Pending Studies at Discharge: No Stand-Alone Forms: [employer] Smoking Cessation Medications and DC Order Prescriptions: New cyanocobalamin (vitamin B-12) 1,000 mcg capsule 1,000 mcg PO DAILY Qty: 30 RF: 0 lidocaine 4 % adhesive patch,medicated 1 patch TOP DAILY Qty: 10 RF: 0 Continued albuterol sulfate [Proventil HFA] 90 mcg/actuation HFA aerosol inhaler 1 - 2 puffs INH Q4H PRN (Reason: shortness of breath) RF: 0 cholecalciferol (vitamin D3) 50,000 unit capsule 50,000 units PO WEEKLY Qty: 4 RF: 5 levothyroxine [Synthroid] 75 mcg tablet 75 mcg PO QAM RF: 0 prednisone 2.5 mg tablet 2.5 mg PO QAM RF: 0 Discharge Orders: Discharge Order (Routine); Ordered 10/07/19 Ordered By: Walter Denney/Other Patient Handouts: Diabetes Type 2 Managing, A1C Admission Data Admit Date/Time: 10/06/19 13:11 Attending Provider: Walter Rodríguez Admit Provider: Wojciech Lance Primary Care Provider: Fatemeh Cooper V. Other Providers: Chemo Howard ; Wojciech Lance Other Interventions: Discharge Summary Assessment (RN) Last Done: 10/07/19 16:11 DC Date/Time DO NOT enter until pt leaves facility: 10/07/19 17:03 Coding Level of Care Code 25657 OBS Care - Discharge Diagnoses Vomiting R11.10 Vomiting type: unspecified Vomiting Intractability: unspecified Nausea presence: unspecified Dizziness R42 Falls [id number] Encounter type: initial encounter Syncope R55 Syncope type: unspecified Vitamin B12 deficiency E53.8 Prolonged QT interval R94.31 Type 2 diabetes mellitus E11.9 Diabetes mellitus usp insulin use: without oil heaterman use Diabetes mellitus complication status: without complication PVT (portal vein thrombosis) I81 Generalized osteoarthritis of multiple sites M15.9 Asthma J45.20 Asthma severity: mild Asthma persistence: intermittent Asthma complication type: unspecified Hypothyroid E03.9 Hypothyroidism type: acquired DVT prophylaxis Z29.9 Rib fractures S22.39XA
[2019-10-10] MEDS ORDERED: ERGOCALCIFEROL 50,000 UNITS CAP PO SCH (09:00)
== END 2019-10-07 17:03 | disposition home or self-care (01) ==
LOC: ED 08:59 → 2N 08:59 → SUATTDRO 13:11 → 2N 15:21

== ENCOUNTER 2019-11-28 16:18 | Observation (INO) ==
[2019-11-28] MEDS ORDERED: MoRPHine SULFATE 2 MG/ML CARP IV STA (18:04)
--- NOTE | 2019-11-28 18:17 | Emergency Department Note ---
History of Present Illness General Chief complaint: Hypertension Stated complaint: HIGH BP, HEADACHE Source: patient Mode of arrival: ambulatory Limitations: no limitations History of Present Illness Provider complaint: Hypertension Maximum Pain Intensity: 9 This is a 74-year-old female who presents to the ED with a chief complaint of elevated blood pressure for the past couple of weeks. She also reports headaches for the past 3 weeks or so. She states that she has a history of blacking out and falling for the past couple of months. She had a loop recorder inserted about a week and a half ago for further investigation of this. The patient's headache is in the frontal region. She just describes it as a pain. She has no associated nausea or vomiting. No fevers or recent illness. She states that she called her doctor today about her elevated blood pressure and her doctor told her to come to the ED. She states that she has had elevated blood pressure since before she had the loop recorder placed. Home Medications Home Medications Medication Instructions Recorded Confirmed Type albuterol sulfate 90 mcg/actuation 1 - 2 puffs INH Q4H PRN gm 03/06/19 11/28/19 History aerosol inhaler cholecalciferol (vitamin D3) 1,250 50,000 units PO WEEKLY #4 cap 03/18/19 11/28/19 Rx mcg (50,000 unit) capsule levothyroxine [Synthroid] 75 mcg PO QAM 07/28/19 11/28/19 History prednisone 5 mg tablet 5 mg PO DAILY #90 tab 10/13/19 11/28/19 Rx cyanocobalamin (vitamin B-12) 1,000 mcg IM MONTHLY #3 ml 10/14/19 11/28/19 Rx 1,000 mcg/mL injection solution syringe with needle, safety 3 mL #12 ea 10/14/19 11/22/19 Rx 25 gauge x 1" diclofenac sodium 75 mg 75 mg PO BID 11/18/19 11/28/19 History tablet,delayed release Allergies Allergy/AdvReac Type Severity Reaction Status Date / Time Sulfa (Sulfonamide Allergy Intermediate Hives Verified 11/18/19 12:55 Antibiotics) adhesive Allergy Mild "rips skin Verified 11/18/19 12:55 off" hydroxychloroquine Allergy Mild vomiting Verified 11/18/19 12:55 lisinopril Allergy Mild Cough Verified 11/18/19 12:55 Past Med/Surg History Medical History Asthma allergy induced--inhaler prn Chronic back pain Degenerative disc disease Dyslipidemia (Acute) Generalized osteoarthritis of multiple sites (Acute) History of colon polyps Hyperplastic colon polyp Hypothyroidism Liver mass hx of, removed [place] [facility] [place] Nausea and vomiting after administration of anesthetic agent Osteoarthritis Osteopenia (Acute) Physical deconditioning (Inactive) Shortness of breath on exertion (Inactive) Spinal stenosis Vitamin B12 deficiency (Acute) Vitamin D deficiency (Acute) Surgical History History of ankle surgery right History of arthroscopy of left knee History of arthroscopy of right knee History of bilateral cataract extraction History of dilatation and curettage x2 History of lumbar discectomy History of lumbar spinal fusion History of open reduction and internal fixation (ORIF) procedure right wrist--hardware in place History of surgery of liver 2014 @ [facility] [place] History of total hysterectomy with bilateral salpingo-oophorectomy (BSO) S/P cholecystectomy S/P colonoscopic polypectomy S/P knee surgery bilateral knee replacement. 1997 Dr. Michael Family History Mother Colon cancer Ovarian cancer Diabetes Type 2 diabetes mellitus Acute myocardial infarction Father Congestive heart failure Lung cancer Sister Type 2 diabetes mellitus Arthritis Daughter Arthritis Thyroid disease Family history of reaction to anesthesia nausea/vomiting Son Hypertension Family/Other Arthritis Asthma Unknown VTE (venous thromboembolism) Daughter Family history of reaction to anesthesia nausea/vomiting Social History Preferred Language: Estonian Communication Ability: Effective Visual Impairment: No Limitations Hearing Ability: Normal Supervisor Travel Information Center Required: No Beliefs That Will Affect Care: None marital status: / Current Living Situation: Family Current Living Situation Comment: Lives with grandson other: is ; 3 children Feels Safe at Home: Yes Smoking Status: Former smoker Tobacco Type: cigarettes ; Age Started Using Tobacco: 16 ; Age Quit Using Tobacco: 16 ; Second Hand Exposure: Yes (parents smoked) ; Hx Alcohol Use: No Hx Substance Use: No Childhood Exposure to Second-Hand Smoke: Yes Seatbelt Use: always Sunscreen Use: Yes Review of Systems A total of 10 systems reviewed and were otherwise negative Physical Exam Vital Signs Vital Signs - 24 hr 11/28/19 16:24 11/28/19 18:09 Temperature 36.8 C Temperature Source Oral Pulse Rate 74 Pulse Rate [Apical] 73 Pulse Rhythm Regular Pulse Strength Normal Respiratory Rate 20 18 Respiratory Effort / Characteristics Non-Labored Spontaneous Non-Labored Respiratory Depth Normal Normal Respiratory Pattern Regular Blood Pressure 168/91 H Blood Pressure [Right Arm] 187/93 H Blood Pressure Mean 116 Blood Pressure Mean [Right Arm] 124 Blood Pressure Position Sitting Pulse Oximetry 97 97 Oxygen Delivery Method Room Air Room Air Sepsis Recent Fever Within 48 Hours No Sepsis New/Unexplained Change in Mental Status No Sepsis Action Taken by Nursing No Action Required CONSTITUTIONAL/VITAL SIGNS: Reviewed / noted above. GENERAL: Non-toxic in appearance. INTEGUMENTARY: Warm, dry, and Ehrenberg. HEAD: Normocephalic. EYES: without scleral icterus or trauma. ENT/OROPHARYNX: clear and moist. LYMPHADENOPATHY/NECK: Is supple without lymphadenopathy or meningismus. RESPIRATORY: Lungs clear and equal. CARDIOVASCULAR: Regular rate and rhythm. GI/ABDOMEN: Soft and nontender. No organomegaly or pulsatile mass. No rebound or guarding. Normal bowel sounds. EXTREMITIES: Warm and well perfused. BACK: No CVA tenderness. NEUROLOGICAL: Intact without focal deficits. PSYCHIATRIC: normal affect. MUSCULOSKELETAL: Normally developed with good muscle tone. TRIAGE NURSING DOCUMENTATION REVIEWED. Course Administered Medications Discontinued Medications Aspirin (Aspirin) 324 mg PO NOW STA Stop: 11/28/19 19:26 Last Admin: 11/28/19 19:40 Dose: 324 mg Documented by: [id number] Morphine Sulfate (Morphine Sulfate) 2 mg IV NOW STA Stop: 11/28/19 18:05 Last Admin: 11/28/19 19:40 Dose: 2 mg Documented by: [id number] Medical Decision Making Differential Diagnosis Differential includes acute coronary syndrome, myocardial infarction, CVA, TIA, anemia, infection, pneumonia, UTI, pyelonephritis, poor nutrition, dehydration, electrolyte disturbance,hypoglycemia. Medical Records Attestation: I reviewed the patient's medical records. Home Medications Current Medication List: was personally reviewed by me Laboratory Data Attestation: I reviewed the patient's lab results. Result diagrams: 11/28/19 18:18 11/28/19 18:18 Lab Results 11/28/19 11/28/19 Range/Units 18:18 18:18 WBC 7.73 (4.8-10.8) K/uL RBC 4.50 (4.2-5.4) M/uL Hgb 14.9 (12.0-16.0) g/dL Hct 44.3 (37-47) % MCV 98.4 (80-100) fL MCH 33.1 (25-34) pg MCHC 33.6 (32-36) g/dL RDW Std Deviation 49.2 H (36.4-46.3) fL RDW Coeff of Messi 13.8 (11.5-14.5) % Plt Count 280 (130-400) K/uL MPV 9.7 (7.4-10.4) fL Immature Gran % (Auto) 0.0 % Neut % (Auto) 30.3 % Lymph % (Auto) 53.2 % Montague % (Auto) 10.2 % Eos % (Auto) 5.4 % Baso % (Auto) 0.9 % Neut # (Auto) 2.34 (1.4-6.5) K/uL Lymph # (Auto) 4.11 H (1.2-3.4) K/uL Montague # (Auto) 0.79 H (0.11-0.59) K/uL Eos # (Auto) 0.42 (0-0.5) K/uL Baso # (Auto) 0.07 (0-0.2) K/uL Immature Gran # (Auto) 0.00 (0.00-0.02) K/uL Sodium 143 (136-145) mmol/L Potassium 3.4 L (3.5-5.1) mmol/L Chloride 111 H (98-107) mmol/L Carbon Dioxide 27 (21-32) mmol/L Anion Gap 5.0 (3-11) BUN 9 (7-18) mg/dl Creatinine 0.85 (0.6-1.2) mg/dl Est Cr Clr Drug Dosing 70.3 ml/min Est GFR ( Amer) 78.8 Est GFR (Non-Af Amer) 68.0 BUN/Creatinine Ratio 10.1 (10-20) Glucose 110 H (70-99) mg/dl Calcium 8.5 (8.5-10.1) mg/dl Total Bilirubin 0.9 (0.2-1) mg/dl AST 43 H (15-37) U/L ALT 40 (12-78) U/L Alkaline Phosphatase 101 (45-117) U/L Total Creatine Kinase 102 (26-192) U/L Troponin I 0.060 H* (0-0.045) ng/ml Total Protein 7.1 (6.4-8.2) gm/dl Albumin 3.0 L (3.4-5.0) gm/dl Globulin 4.1 H (2.5-4.0) gm/dl Albumin/Globulin Ratio 0.7 L (0.9-2) TSH 0.946 (0.300-4.500) uIu/ml Imaging Data Radiologist's Impression: CT scan of the brain is negative for acute disease. Chest x-ray is negative for acute disease. ECG Data Attestation: I personally reviewed and interpreted this ECG as follows: Rate (beats per minute): 69 Rhythm: + normal sinus ECG ST segments: no ST elevation ECG Findings: + PACs; no PVCs Blood Pressure Blood Pressure Findings: Elevated blood pressure Blood Pressure Disposition: Referred to patients primary care provider MDM Narrative This is a 74-year-old female who presents to the ED with a chief complaint of elevated blood pressure for the past couple of weeks. She also reports headaches for the past 3 weeks or so. She states that she has a history of blacking out and falling for the past couple of months. She had a loop recorder inserted about a week and a half ago for further investigation of this. The patient's headache is in the frontal region. She just describes it as a pain. She has no associated nausea or vomiting. No fevers or recent illness. She states that she called her doctor today about her elevated blood pressure and her doctor told her to come to the ED. She states that she has had elevated blood pressure since before she had the loop recorder placed. The patient vital signs here reveal hypertension. Her physical exam was otherwise unremarkable. The patient CBC and chemistry panel was unremarkable. A CT scan of the head and chest x-ray were negative for acute disease. EKG showed a sinus rhythm at a rate of 69 with PACs. Troponin was elevated at 0.06. The patient will be seen by the hospitalist service for further inpatient evaluation and care. Impression & Plan Elevated troponin, Hypertension Discharge Plan Visit Data Chief Complaint: Hypertension Stated Complaint: HIGH BP, HEADACHE ED Provider: Jamey Hernandez Discharge Problem: Elevated troponin, Hypertension Patient Disposition: Being Evaluated by Hospitalist Forms Stand Alone Forms: My [facility] [employer] Prescriptions Prescriptions: No Action albuterol sulfate [Proventil HFA] 90 mcg/actuation HFA aerosol inhaler 1 - 2 puffs INH Q4H PRN (Reason: shortness of breath) RF: 0 cholecalciferol (vitamin D3) 50,000 unit capsule 50,000 units PO WEEKLY Qty: 4 RF: 5 diclofenac sodium 75 mg tablet,delayed release (DR/EC) 75 mg PO BID RF: 0 prednisone 5 mg tablet 5 mg PO DAILY Qty: 90 RF: 1 cyanocobalamin (vitamin B-12) 1,000 mcg/mL solution 1,000 mcg IM MONTHLY Qty: 3 RF: 11 (DME) BD Integra Syringe 3 mL 25 gauge x 1" syringe See Rx Instructions .ROUTE .MEDSUPPLY Qty: 12 RF: 11 levothyroxine [Synthroid] 75 mcg tablet 75 mcg PO QAM RF: 0 Referrals Referrals: Fatemeh Cooper MD [Primary Care Provider] -
--- NOTE | 2019-11-28 18:30 | XRay Report ---
XR chest 1V portable CLINICAL HISTORY: weakness dyspnea COMPARISON STUDY: 10/06/2019 FINDINGS: The bones soft tissues and hemidiaphragms are normal. The cardiomediastinal silhouette is n ormal. The lungs are clear. The pulmonary vasculature is normal. IMPRESSION: Negative chest. ACT 112: Negative or not required by law. The above report was generated using voice recognition software. It may contain grammatical, syntax or spelling errors. Electronically signed by: Anthony Omalley M.D. 11/28/2019 6:28 PM
[2019-11-28 18:47] LABS: Hematocrit (blood only) 44.3 % (37-47); Hemoglobin 14.9 g/dL (12.0-16.0); Mean Corpuscular Hemoglobin 33.1 pg (25-34); Mean Corpuscular Hgb Conc 33.6 g/dL (32-36); Mean Corpuscular Volume 98.4 fL (80-100); Mean Platelet Volume 9.7 fL (7.4-10.4); Platelet Count 280 K/uL (130-400); RDW Coefficient of Variation 13.8 % (11.5-14.5); RDW Standard Deviation 49.2 fL (36.4-46.3); White Blood Count 7.73 K/uL (4.8-10.8)
[2019-11-28 18:58] LABS: BUN Creatinine Ratio 10.1 (10-20); Calcium 8.5 mg/dl (8.5-10.1); Creatinine Clr Calc Pharmacy 70.3 ml/min; Est GFR (African American) 78.8; Potassium 3.4 mmol/L (3.5-5.1)
--- NOTE | 2019-11-28 19:06 | CT Scan Report ---
CT head/brain wo con CT DOSE: 614.27 mGy.cm HISTORY: Mental status change headache TECHNIQUE: Multiaxial CT images of the head were performed without the use of intravenous contrast. A dose lowering technique was utilized adhering to the principles of ALARA. Comparison: None. Findings: The paranasal sinuses and mastoid air cells are clear. The calvarium and skull base are int act. The ventricles and sulci are within normal limits. There is no mass, hematoma, midline shift, or acute infarct. Impression: No acute intracranial abnormality. ACT 112: Negative or not required by law. The above report was generated using voice recognition software. It may contain grammatical, syntax or spelling errors. Electronically signed by: Anthony Omalley M.D. 11/28/2019 7:04 PM
[2019-11-28 19:15] LABS: Albumin Globulin Ratio 0.7 (0.9-2); Bilirubin,Total 0.9 mg/dl (0.2-1); Globulin 4.1 gm/dl (2.5-4.0); Thyroid Stimulating Hormone 0.946 uIu/ml (0.300-4.500); Total Protein 7.1 gm/dl (6.4-8.2); Troponin I 0.06 ng/ml (0-0.045)
[2019-11-28] MEDS ORDERED: ASPIRIN CHEW 324 MG PO STA (19:25)
[2019-11-28 19:50] LABS: Basophils # (auto) 0.07 K/uL (0-0.2); Basophils % (auto) 0.9 %; Eosinophils # (auto) 0.42 K/uL (0-0.5); Eosinophils % (auto) 5.4 %; Lymphocytes # (auto) 4.11 K/uL (1.2-3.4); Lymphocytes % (auto) 53.2 %; Monocytes # (auto) 0.79 K/uL (0.11-0.59); Monocytes % (auto) 10.2 %; Neutrophils # (auto) 2.34 K/uL (1.4-6.5); Neutrophils % (auto) 30.3 %
[2019-11-28 19:55] LABS: Appearance Urine Clear (Clear); Bilirubin Urine Negative (Negative); Blood Urine Negative (Negative); Color Urine Yellow; Glucose Urine UA Negative (Negative); Ketones Urine Negative (Negative); Leukocyte Esterase Urine 2+ (Negative); Nitrite Urine Negative (Negative); Protein Urine Negative (Negative); Specific Gravity Urine 1.006 (1.000-1.030); Urobilinogen Urine Negative (Negative); pH Urine 6.5 (4.5-7.5)
[2019-11-28 20:13] LABS: Bacteria Urine Negative (Negative); RBC Urine 0-4 /hpf (0-4)
[2019-11-28] MEDS ORDERED: MAGNESIUM HYDROXIDE SUSP 30 ML UDC PO PRN (20:43)
[2019-11-28] MEDS ORDERED: POLYETHYLENE (MIRALAX) 17 GM PACK PO PRN (20:43)
[2019-11-28] MEDS ORDERED: ACETAMINOPHEN 325 MG TAB PO PRN (20:43)
[2019-11-28] MEDS ORDERED: ALUMINUM/MAGNESIUM SUSP 30 ML UDC PO PRN (20:43)
[2019-11-28] MEDS ORDERED: ONDANSETRON INJ 2 MG/ML 2 ML VIAL IV PRN (20:43)
--- NOTE | 2019-11-28 21:24 | History & Physical Report ---
Date of Service November 28, 2019 Assessment & Plan Admission and Anticipated Discharge Date Admission Date: 74 yo F w/ pMHx. of asthma, hypothyroidism and hypertension, presenting with headache and blood pressure as high as 210/100, troponin was found to be elevated in the setting of recent loop recorder placed on 11/21 for syncope. HTN urgency w/ BP as high as 210/100, has come down to 177/91 - CT head: no acute intracranial abnormality - admission for observation on telemetry - not currently on any BP medication as an outpatient, history of cough with Lisinopril in the past - continue to monitor at this time - ordered renin & aldosterone w/ AM labs if elevated aldosterone > 1 or r/a ratio >15 consider starting Spironolactone - consider starting antihypertensive prior to discharge vs. starting at follow up with PCP Elevated troponin in the setting of recent implantable loop recorder placed 11/21, also potentially due to demand ischemia and will want to rule out ischemia from occlusive disease although pt. w/o chest pain or changes on EKG. - troponin on 11/27 at 18:18 was - 0.060 - EKG w/sinus and PAC's - CXR: negative - ECHO in March 2019 w/ EF 55-60% - ECHO ordered - continue to trend troponin - cardiology consulted Syncope - consulted cardiology - f/u on loop recorder ETOH use? in prior H&P, patient denies ETOH or recreational drug use - f/u ETOH level and UDS Elevated blood sugar - A1c w/ AM labs Hypothyroid - continue home levothyroxine DVT: Heparin Code: full Dispo: med/surg w/ tele History of Present Illness Chief Complaint: hypertension Primary Care Provider: Fatemeh Shah MD Madeleine Arzola is a 74 yo F w/ a past medical history of asthma, hypothyro idism, and hypertension. She has had elevated blood pressures for 2 weeks and 3 weeks of a frontal headache. The headache is frontal. She has a history of syncope and is being seen by cardiology, a loop recorder was placed by Dr. Hewitt on 11/21. The syncopal events are preceded by a feeling of lightheadedness and then she has loss of consciousness and awakes on the floor. She had fallen after getting out of bed after vomiting all night and had fractured her ribs. She explained that her blood pressure was elevated at that time and has continued to be elevated at home since then. Social history: - lives at home with grandson, no smoking history, explained that she only drinks at weddings and special occasions, no recreational drug use per patient - reviewed diet, normally eats toast for breakfast, orange for lunch and will eat chicken or steak for dinner and eats potatoes, drinks one Pepsi a day and hot tea - PHQ2 negative, enjoys things she did in the past Daughter's # [phone] Allergies Allergy/AdvReac Type Severity Reaction Status Date / Time Sulfa (Sulfonamide Allergy Intermediate Hives Verified 11/18/19 12:55 Antibiotics) adhesive Allergy Mild "rips skin Verified 11/18/19 12:55 off" hydroxychloroquine Allergy Mild vomiting Verified 11/18/19 12:55 lisinopril Allergy Mild Cough Verified 11/18/19 12:55 Home Medications Home Medications Medication Instructions Recorded Confirmed Type albuterol sulfate 90 mcg/actuation 1 - 2 puffs INH Q4H PRN gm 03/06/19 11/28/19 History aerosol inhaler cholecalciferol (vitamin D3) 1,250 50,000 units PO WEEKLY #4 cap 03/18/19 11/28/19 Rx mcg (50,000 unit) capsule levothyroxine [Synthroid] 75 mcg PO QAM 07/28/19 11/28/19 History prednisone 5 mg tablet 5 mg PO DAILY #90 tab 10/13/19 11/28/19 Rx cyanocobalamin (vitamin B-12) 1,000 mcg IM MONTHLY #3 ml 10/14/19 11/28/19 Rx 1,000 mcg/mL injection solution syringe with needle, safety 3 mL #12 ea 10/14/19 11/22/19 Rx 25 gauge x 1" diclofenac sodium 75 mg 75 mg PO BID 11/18/19 11/28/19 History tablet,delayed release losartan 50 mg PO QAM 30 Days #30 tab 11/29/19 Rx Past Med/Surg History Medical History Asthma allergy induced--inhaler prn Chronic back pain Degenerative disc disease Dyslipidemia (Acute) Generalized osteoarthritis of multiple sites (Acute) History of colon polyps Hyperplastic colon polyp Hypothyroidism [place]x of, [place] [facility] [place] Nausea and vomiting after administration of anesthetic agent Osteoarthritis Osteopenia (Acute) Physical deconditioning (Inactive) Shortness of breath on exertion (Inactive) Spinal stenosis Vitamin B12 deficiency (Acute) Vitamin D deficiency (Acute) Surgical History History of ankle surgery right History of arthroscopy of left knee History of arthroscopy of right knee History of bilateral cataract extraction History of dilatation and curettage x2 History of lumbar discectomy History of lumbar spinal fusion History of open reduction and internal fixation (ORIF) procedure right wrist--hardware in place History of surgery of [place] [facility] [place] of total hysterectomy with bilateral salpingo-oophorectomy (BSO) S/P cholecystectomy S/P colonoscopic polypectomy S/P knee surgery bilateral knee replacement. 1997 Dr. Michael Family History Mother Colon cancer Ovarian cancer Diabetes Type 2 diabetes mellitus Acute myocardial infarction Father Congestive heart failure Lung cancer Sister Type 2 diabetes mellitus Arthritis Daughter Arthritis Thyroid disease Family history of reaction to anesthesia nausea/vomiting Son Hypertension Family/Other Arthritis Asthma Unknown VTE (venous thromboembolism) Daughter Family history of reaction to anesthesia nausea/vomiting Social History Preferred Language: Yoruba Communication Ability: Effective Visual Impairment: No Limitations Hearing Ability: Normal Ammonium Hydroxide Operator Required: No Beliefs That Will Affect Care: None marital status: / Current Living Situation: Family Current Living Situation Comment: grandson other: is ; 3 children Feels Safe at Home: Yes Smoking Status: Never smoker Tobacco Type: smokeless tobacco ; Age Started Using Tobacco: 16 ; Age Quit Using Tobacco: 16 ; Second Hand Exposure: No ; Hx Alcohol Use: Yes Alcohol type: hard liquor Alcohol Intake Frequency: Daily Hx Substance Use: No Childhood Exposure to Second-Hand Smoke: Yes Seatbelt Use: always Sunscreen Use: Yes Review of Systems Review of Systems: Constitutional: denies fevers, chills, fatigue, generalized weakness Head: denies recent trauma, lightheadedness admits vision changes with macular degeneration that has worsened over the last 2-3 months Neurologic: denies slurring speech, focal weakness, numbness or tingling ENT: denies vertigo, swollen lymph nodes, epistaxis Cardiac: denies chest pain, palpitations, leg edema, PND, PARKER Pulm: denies cough, shortness of breath, sputum production GI: denies indigestion, constipation or diarrhea : denies urgency, frequency or dysuria Heme: denies bruising Psych: denies stress, anxiety, depression Physical Exam Constitutional: WD/WN, vitals as above Eyes: PERRL, conjunctivae normal, anicteric sclerae ENMT: external ear and nose normal, oropharynx normal Neck: normal visual inspection Respiratory: normal respiratory effort, lungs clear to auscultation Cardiovascular: RRR, no murmur, no edema Gastrointestinal (Abdomen): normal bowel sounds, soft, nontender, no hepatosplenomegaly Musculoskeletal: no cyanosis or clubbing, extremities motor strength 5/5 Skin: no rashes, warm and dry Neurologic: CN's II-XI intact bilaterally Psychiatric: A+Ox3, euthymic affect Results & Data Results & Data ([facility]) Vital Signs (Past 12 Hours) Vital Signs Temp Pulse Pulse Resp BP BP Pulse Ox 11/28/19 20:00 75 15 200/104 H 97 11/28/19 19:41 84 18 210/100 H 98 11/28/19 19:30 82 17 11/28/19 19:05 83 17 11/28/19 18:30 74 16 180/114 H 96 11/28/19 18:12 69 25 H 11/28/19 18:09 73 18 187/93 H 97 11/28/19 18:00 71 18 187/93 H 11/28/19 16:24 36.8 C 74 20 168/91 H 97 CBC Results Results Complete Blood Count Results: RBC 4.52 M/uL (4.2-5.4) 11/29/19 WBC 6.97 K/uL (4.8-10.8) 11/29/19 Hgb 14.3 g/dL (12.0-16.0) 11/29/19 Hct 44.2 % (37-47) 11/29/19 Plt Count 253 K/uL (130-400) 11/29/19 Chemistry (BMP) Results BMP Results: Sodium 144 mmol/L (136-145) 11/29/19 Potassium 3.7 mmol/L (3.5-5.1) 11/29/19 Chloride 114 mmol/L (98-107) H 11/29/19 BUN 7 mg/dl (7-18) 11/29/19 Creatinine 0.61 mg/dl (0.6-1.2) 11/29/19 Glucose 98 mg/dl (70-99) 11/29/19 Code Status & VTE Plan VTE Prophylaxis Plan VTE Prophylaxis will be ordered: Yes Supervising Physician Co-Signing Physician Notes Attending addendum: I have physically seen this patient, have supervised the medical residents activities, and agree with the H&P unless as otherwise noted. Assessment and Plan: HTN Urgency/elevated troponin/implantable loop recorder 11/21/syncope- Admit to telemetry, serial troponins, monitor for arrhythmia, and ECHO with dopplers CT Head negative Lopressor 5mg IV q4h PRN BP > 160 order renin and aldosterone consult cardiology Syncope- CT head negative. Can't do MRI due to loop recorder Hyperglycemia- Check HbA1c Hypothryoidism- continue levothyroxine. Remainder of orders and notations as noted. Resident Activity Tracking Resident Involvement: Resident Care Provided Care Provided: Adult Hospital Medicine
[2019-11-28] MEDS: HEPARIN SOD 5,000 UNIT/0.5 ML VIAL SQ SCH (21:27)
[2019-11-29] MEDS: POTASSIUM CHLORIDE / WTR 10 MEQ/100 ML PLCT IV SCH ×3 (00:18→02:54)
[2019-11-29] MEDS: DICLOFENAC SODIUM 75 MG TABCR PO SCH ×2 (00:18→08:24)
[2019-11-29] MEDS ORDERED: Nursing to Pharmacy Communication SCH (00:45)
[2019-11-29 06:14] LABS: Hematocrit (blood only) 44.2 % (37-47); Hemoglobin 14.3 g/dL (12.0-16.0); Mean Corpuscular Hemoglobin 31.6 pg (25-34); Mean Corpuscular Hgb Conc 32.4 g/dL (32-36); Mean Corpuscular Volume 97.8 fL (80-100); Mean Platelet Volume 9.9 fL (7.4-10.4); Platelet Count 253 K/uL (130-400); RDW Coefficient of Variation 13.6 % (11.5-14.5); RDW Standard Deviation 48.1 fL (36.4-46.3); Red Blood Count 4.52 M/uL (4.2-5.4); White Blood Count 6.97 K/uL (4.8-10.8)
[2019-11-29] MEDS ORDERED: LEVOTHYROXINE SODIUM 75 MCG TABLET PO SCH (06:30)
[2019-11-29 06:40] LABS: Estimated Average Glucose 137 mg/dl; Hemoglobin A1C 6.4 % (4.5-5.6)
[2019-11-29 06:44] LABS: BUN Creatinine Ratio 11.4 (10-20); Calcium 8.2 mg/dl (8.5-10.1); Creatinine Clr Calc Pharmacy 97.1 ml/min; Est GFR (African American) 104.2; Est GFR (Non-African American) 89.9; Potassium 3.7 mmol/L (3.5-5.1)
[2019-11-29 07:29] LABS: Basophils # (auto) 0.04 K/uL (0-0.2); Basophils % (auto) 0.6 %; Eosinophils # (auto) 0.46 K/uL (0-0.5); Eosinophils % (auto) 6.6 %; Immature Granulocytes # (auto) 0.01 K/uL (0.00-0.02); Immature Granulocytes % (auto) 0.1 %; Lymphocytes # (auto) 4.04 K/uL (1.2-3.4); Monocytes # (auto) 0.44 K/uL (0.11-0.59); Monocytes % (auto) 6.3 %; Neutrophils # (auto) 1.98 K/uL (1.4-6.5); Neutrophils % (auto) 28.4 %; RBC Morphology Unremarkable
[2019-11-29] MEDS: HEPARIN SOD 5,000 UNIT/0.5 ML VIAL SQ SCH (08:24)
[2019-11-29] MEDS ORDERED: predniSONE 5 MG TAB PO SCH (09:00)
--- NOTE | 2019-11-29 13:55 | Cardiology Consultation ---
Date of Consultation November 29, 2019 Assessment & Plan (1) Elevated troponin: -mild elevation likely a supply demand mismatch. -she was significantly hypertensive at time of presentation and has mild LVH. -this is not an acute coronary syndrome. No symptoms or EKG changes. (2) Hypertension: -antihypertensives were being held due to her history of recurrent syncope. -will start low-dose losartan at 50 mg daily. (3) LVH (left ventricular hypertrophy): -mild LVH on her current echocardiogram. (4) Syncope: -interrogation of her device today showed no significant dysrhythmias or pauses. History of Present Illness Attending Physician: Walter Rodríguez DO History of Present Illness Mrs. Arzola is a 74-year-old female admitted earlier today with accelerated hypertension and a mildly elevated troponin. This consultation was ordered to system cardiac management. Of note, patient is typically followed by Dr. Hewitt in the outpatient setting. The patient was in her usual state of health until approximately 2-3 weeks ago when she began to note frontal headaches and elevated home blood pressure recordings. She presented to the emergency room and she became quite concerned has her blood pressure at home was 210/100 and her frontal headache was quite severe. The patient has had recurrent episodes of syncope resulting in significant trauma. She had a loop recorder placed by Dr. Hewitt on November 21. I nterrogation of her device today showed no abnormalities. The patient has never known of a cardiac event. She has never experienced exertional chest pain or limiting dyspnea. She further denies syncope, presyncope, PND, orthopnea, palpitations, lower extremity edema, and claudication. Currently, patient is resting comfortably in bed without complaints. Past medical and surgical history 1. Hypertension 2. Mild LVH 3. Mild mitral regurgitation 4. Hypothyroidism 5. Hyperglycemia 6. Recurrent syncope 7. DJD 8. Vitamin B12 deficiency 9. Vitamin-D deficiency 10. Osteoporosis Social history , lives with her grandson. No tobacco or alcohol Family history Noncontributory Review of systems A 10 point review of systems was negative except for that described above. Allergies Allergy/AdvReac Type Severity Reaction Status Date / Time Sulfa (Sulfonamide Allergy Intermediate Hives Verified 11/18/19 12:55 Antibiotics) adhesive Allergy Mild "rips skin Verified 11/18/19 12:55 off" hydroxychloroquine Allergy Mild vomiting Verified 11/18/19 12:55 lisinopril Allergy Mild Cough Verified 11/18/19 12:55 Home Medications Home Medications Medication Instructions Recorded Confirmed Type albuterol sulfate 90 mcg/actuation 1 - 2 puffs INH Q4H PRN gm 03/06/19 11/28/19 History aerosol inhaler cholecalciferol (vitamin D3) 1,250 50,000 units PO WEEKLY #4 cap 03/18/19 11/28/19 Rx mcg (50,000 unit) capsule levothyroxine [Synthroid] 75 mcg PO QAM 07/28/19 11/28/19 History prednisone 5 mg tablet 5 mg PO DAILY #90 tab 10/13/19 11/28/19 Rx cyanocobalamin (vitamin B-12) 1,000 mcg IM MONTHLY #3 ml 10/14/19 11/28/19 Rx 1,000 mcg/mL injection solution syringe with needle, safety 3 mL #12 ea 10/14/19 11/22/19 Rx 25 gauge x 1" diclofenac sodium 75 mg 75 mg PO BID 11/18/19 11/28/19 History tablet,delayed release Patient History Medical History Asthma allergy induced--inhaler prn Chronic back pain Degenerative disc disease Dyslipidemia (Acute) Generalized osteoarthritis of multiple sites (Acute) History of colon polyps Hyperplastic colon polyp Hypothyroidism [place] [facility] [place] Nausea and vomiting after administration of anesthetic agent Osteoarthritis Osteopenia (Acute) Physical deconditioning (Inactive) Shortness of breath on exertion (Inactive) Spinal stenosis Vitamin B12 deficiency (Acute) Vitamin D deficiency (Acute) Surgical History History of ankle surgery right History of arthroscopy of left knee History of arthroscopy of right knee History of bilateral cataract extraction History of dilatation and curettage x2 History of lumbar discectomy History of lumbar spinal fusion History of open reduction and internal fixation (ORIF) procedure right wrist--hardware in place History of surgery of [place] [facility] [place] History of total hysterectomy with bilateral salpingo-oophorectomy (BSO) S/P cholecystectomy S/P colonoscopic polypectomy S/P knee surgery bilateral knee replacement. 1997 Dr. 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 Beliefs That Will Affect Care: None marital status: / Current Living Situation: Family Current Living Situation Comment: grandson Other Information That Helps Us Care for You: No other: is ; 3 children Feels Safe at Home: Yes Safety Concerns: Feels Safe At This Time Smoking Status: Never smoker Tobacco Type: smokeless tobacco ; Age Started Using Tobacco: 16 ; Age Quit Using Tobacco: 16 ; Do You Dip or Chew Tobacco: Yes ; Second Hand Exposure: No ; Tobacco Cessation Education Requested by Patient: No Hx Alcohol Use: Yes Alcohol type: hard liquor Alcohol Intake Frequency: Daily Hx Substance Use: No Childhood Exposure to Second-Hand Smoke: Yes Seatbelt Use: always Sunscreen Use: Yes Physical Exam Physical Exam: In general this is a well-developed well-nourished white female in no acute distress. HEENT exam is negative. Neck is supple with full carotid upstrokes. There are no carotid bruits. Jugular venous pressure is flat at 90. There is no thyromegaly. Cardiovascular exam reveals a regular rhythm with a normal S1 and S2. No S3, S4, or murmurs are noted. Lungs are clear without rales, rhonchi, or wheezes. Abdomen is soft and nontender without bruits. Extremities reveal intact radial artery and posterior tibial pulses bilaterally. There is no peripheral edema. Results & Data ([facility]) Vital Signs (Past 12 Hours) Vital Signs Temp Pulse Pulse Resp BP Pulse Ox 11/29/19 11:24 36.3 C L 73 20 181/92 H 96 11/29/19 07:22 71 11/29/19 07:04 36.4 C L 68 18 165/88 H 96 11/29/19 04:02 36.6 C 75 18 154/86 H 94 Laboratory Results CBC notes hemoglobin of 14.3, hematocrit 44.2, white count 6.97, and platelet count 253 1000. Electrolytes notice a sodium of 144, potassium 3.7, chloride 114, CO2 24, BUN 7, creatinine 0.61, glucose of 98. Initial troponin was 0.06 with follow-up values of 0.045 and 0.057. TSH is normal at 0.946. Diagnostic Findings EKG notes normal sinus rhythm with PACs. Echocardiogram notes normal left ventricular systolic function with ejection fraction 55-60%. There were no wall motion abnormalities. There is mild LVH and mild mitral regurgitation. Interrogation of loop recorder shows no significant dysrhythmia. Chest x-ray shows no acute disease. CT scan head is negative. PG Care Time/CCT Total # of Minutes Spent Total Time Spent with Patient: Total time spent is greater than 50% in coordination of care (as documented) at patient's floor/unit and/or counseling patient: Coding Level of Care Code 91521 OBS Care - Level 3 Diagnoses Elevated troponin R79.89 Hypertension I10 Hypertension type: unspecified LVH (left ventricular hypertrophy) I51.7 Syncope R55 Syncope type: unspecified (1) Hypertension Hypertension type: unspecified Qualified Code(s): I10 - Essential (primary) hypertension (2) Syncope Syncope type: unspecified Qualified Code(s): R55 - Syncope and collapse
[2019-11-29] MEDS ORDERED: LOSARTAN POTASSIUM 50 MG TAB PO SCH (14:00)
--- NOTE | 2019-11-29 14:13 | XCELERA ---
[id number]
--- NOTE | 2019-11-29 14:34 | Discharge Summary ---
Date of Service November 29, 2019 Admission HPI Per Admitting Provider Madeleine Arzola is a 74 yo F w/ a past medical history of asthma, hypothyroidism, and hypertension. She has had elevated blood pressures for 2 weeks and 3 weeks of a frontal headache. The headache is frontal. She has a history of syncope and is being seen by cardiology, a loop recorder was placed by Dr. Hewitt on 11/21. The syncopal events are preceded by a feeling of lightheadedness and then she has loss of consciousness and awakes on the floor. She had fallen after getting out of bed after vomiting all night and had fractured her ribs. She explained that her blood pressure was elevated at that time and has continued to be elevated at home since then. Social history: - lives at home with grandson, no smoking history, explained that she only drinks at weddings and special occasions, no recreational drug use per patient - reviewed diet, normally eats toast for breakfast, orange for lunch and will eat chicken or steak for dinner and eats potatoes, drinks one Pepsi a day and hot tea - PHQ2 negative, enjoys things she did in the past Daughter's # [phone] Principal Diagnosis Uncontrolled Hypertension Discharge Exam Constitutional WD/WN, vitals as above Eyes PERRL, conjunctivae normal, anicteric sclerae Neck normal visual inspection Respiratory normal respiratory effort, lungs clear to auscultation Cardiovascular Rate/Rhythm: regular rate and regular rhythm Heart Sounds: normal S1 and normal S2; no gallop, no murmur and no cardiac rub Vessels: normal peripheral pulses; no JVD Extremities: no pedal edema Gastrointestinal (Abdomen) normal bowel sounds, soft, nontender, no hepatosplenomegaly Musculoskeletal no cyanosis or clubbing, extremities motor strength 5/5 Skin no rashes, warm and dry Neurologic patellar DTR's 2+ bilat, sensation intact Psychiatric A+Ox3, euthymic affect Discharge Data Allergies Allergy/AdvReac Type Severity Reaction Status Date / Time Sulfa (Sulfonamide Allergy Intermediate Hives Verified 11/18/19 12:55 Antibiotics) adhesive Allergy Mild "rips skin Verified 11/18/19 12:55 off" hydroxychloroquine Allergy Mild vomiting Verified 11/18/19 12:55 lisinopril Allergy Mild Cough Verified 11/18/19 12:55 Consultations 11/28/19 19:26 ED Decision to Admit Stat 11/28/19 20:43 Consult Cardiology Routine Ordered Studies 11/28/19 17:47 CT head/brain wo con Stat Hospital Course (1) Hypertension: Madeleine Arzola is a 74 yo F w/ a past medical history of asthma, hypothyroidism, and hypertension. She has had elevated blood pressures for 2 weeks and 3 weeks of a frontal headache. Uncontrolled Hypertension: - BP as high as 210/100 during admission - CT head: no acute intracranial abnormality - history of cough with Lisinopril in the past; trialed on HCTZ but according to daughter intolerance was due to desire not to take medication - troponin on 11/27 at 18:18 was - 0.060 - Echo in 03/2019 demonstrated EF 55-60% with mild concentric LVH; repeat Echo 11/29/2019 unchanged - loop recorder interrogation did not demonstrate any significant dysrhythmias or pauses - Continue Losartan 50mg daily Total Time Total Time Spent Total Time Spent (In Minutes): <30 Discharge Plan Discharge Items Patient Disposition: Home - Self-Care Reason For Visit: ELEVATED TROPONIN Discharge Diagnosis: Uncontrolled Hypertension Activity: Per Instructions section Non-emergency contact: Primary Care Provider Call non-emergency contact if: you have any medication questions and your symptoms worsen Follow-up/Referrals: Fatemeh Cooper MD [Primary Care Provider] - Diet: Heart Healthy Addtl Attending Provider Instructions: You were seen and admitted following having continued elevated blood pressures for several weeks, in addition to a headache; during this admission, it was noted that your blood pressure was elevated to above the 200s. After receiving medications to reduce this blood pressure, you had improvement in your symptoms. The top lift nailer examined your loop recorded and this did not show significant changes to your heart rhythm. As you are now being discharged, we are starting you on medication for your blood pressure. It is important that you continue to take this medicine on a daily basis, and work with Dr. Shah for continued monitoring of your blood pressure. Pending Studies at Discharge: No Stand-Alone Forms: My [employer], Smoking Cessation Medications and DC Order Prescriptions: New losartan 50 mg Tablet 50 mg PO QAM 30 Days Qty: 30 RF: 0 Continued albuterol sulfate [Proventil HFA] 90 mcg/actuation HFA aerosol inhaler 1 - 2 puffs INH Q4H PRN (Reason: shortness of breath) RF: 0 cholecalciferol (vitamin D3) 50,000 unit capsule 50,000 units PO WEEKLY Qty: 4 RF: 5 diclofenac sodium 75 mg tablet,delayed release (DR/EC) 75 mg PO BID RF: 0 prednisone 5 mg tablet 5 mg PO DAILY Qty: 90 RF: 1 cyanocobalamin (vitamin B-12) 1,000 mcg/mL solution 1,000 mcg IM MONTHLY Qty: 3 RF: 11 (DME) BD Integra Syringe 3 mL 25 gauge x 1" syringe See Rx Instructions .ROUTE .MEDSUPPLY Qty: 12 RF: 11 levothyroxine [Synthroid] 75 mcg tablet 75 mcg PO QAM RF: 0 Discharge Orders: Discharge Order (Routine); Ordered 11/29/19 Ordered By: Zaki Denney/Other Patient Handouts: Prediabetes, A1C Admission Data Admit Date/Time: 11/28/19 20:45 Attending Provider: Walter Rodríguez Admit Provider: Ankit Fierro Primary Care Provider: Fatemeh Cooper V. Other Providers: Andrey Dennison ; Kraig Noriega Other Interventions: Discharge Summary Assessment (RN) Last Done: 11/29/19 14:30 DC Date/Time DO NOT enter until pt leaves facility: 11/29/19 15:29 Supervising Physician Co-Signing Physician Notes I personally examined the patient and verified all wilson points of history and exam, discussed case, and agree with decision making with Dr Kramer. feeling better really wants to go home. discussed dx, management, plans, risks/benefits - she expressed understanding. d/w dtr in depth as well vitals noted nad heent nc at mmm breathing unlabored no accessory muscles good effort skin no rashes no pallor or icterus neuro no focal deficits hypertensive emergency - L heart strain due to excessive afterload causing troponin elevation, fortunately BP (while still fairly elevated) is improved and pt asymptomatic. safe for home - extensive discussion on need to treat BP - she agrees to start. agree w losartan for afterload reduction. can slowly titrate dose as outpt. rec'd close and ongoing f/u w her PCP due to multiple active problems so that she can provide oversight, coordination, and good management. otherwise as above Resident Activity Tracking Resident Involvement: Resident Care Provided Care Provided: Adult [facility] Medicine
--- NOTE | 2019-11-29 15:35 | Electrocardiogram Report ---
Test Reason : Blood Pressure : / mmHG Vent. Rate : 069 BPM Atrial Rate : 069 BPM P-R Int : 138 ms QRS Dur : 090 ms QT Int : 452 ms P-R-T Axes : 000 021 075 degrees QTc Int : 484 ms Sinus rhythm with Premature atrial complexes Otherwise normal ECG When compared with ECG of 06-OCT-2019 09:27, No significant change was found Confirmed by Kraig Noriega ([id number]) on 11/29/2019 3:35:18 PM Referred By: REFERRED SELF Confirmed By:Kraig Noriega
--- NOTE | 2019-11-29 16:13 | Billing Data ---
Date of Service November 29, 2019 Coding Level of Care Code 42391 OBS Care - Discharge
--- NOTE | 2019-12-02 01:42 | Billing Data ---
Date of Service December 02, 2019 Coding Level of Care Code 02305 Initial Inpt Care Lvl 3
[2019-12-03 12:24] LABS: Renin Activity 1.3 ng/mL/h (0.25-5.82)
== END 2019-11-29 15:29 | disposition home or self-care (01) ==
LOC: 2N 16:18 → ED 16:18 → SUATTDRO 20:45 → 2N 22:28

== ENCOUNTER 2021-11-28 13:39 | Observation (INO) ==
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
[2021-11-28 14:47] LABS: Basophils # (auto) 0.03 K/uL (0-0.2); Basophils % (auto) 0.5 %; Eosinophils # (auto) 0.48 K/uL (0-0.5); Eosinophils % (auto) 7.7 %; Hematocrit (blood only) 39.9 % (37-47); Hemoglobin 13.6 g/dL (12.0-16.0); Immature Granulocytes # (auto) 0.01 K/uL (0.00-0.02); Immature Granulocytes % (auto) 0.2 %; Lymphocytes # (auto) 1.83 K/uL (1.2-3.4); Lymphocytes % (auto) 29.2 %; Mean Corpuscular Hemoglobin 33.9 pg (25-34); Mean Corpuscular Hgb Conc 34.1 g/dL (32-36); Mean Corpuscular Volume 99.5 fL (80-100); Monocytes # (auto) 0.76 K/uL (0.11-0.59); Monocytes % (auto) 12.1 %; Neutrophils # (auto) 3.15 K/uL (1.4-6.5); Neutrophils % (auto) 50.3 %; Platelet Count 259 K/uL (130-400); RDW Coefficient of Variation 14.3 % (11.5-14.5); RDW Standard Deviation 52.2 fL (36.4-46.3); Red Blood Count 4.01 M/uL (4.2-5.4); White Blood Count 6.26 K/uL (4.8-10.8)
--- NOTE | 2021-11-28 14:57 | XRay Report ---
XR chest 1V portable CLINICAL HISTORY: Atypical chest pain TECHNIQUE: Single frontal radiograph of the chest was obtained. Comparison: Comparison is made to chest radiograph 11/28/2019 FINDINGS: No lines and tubes are seen. The cardiomediastinal silhouette is normal. The lungs are clear. No evid ence of pleural effusion or pneumothorax. IMPRESSION: No acute chest disease. ACT 112: Negative or not required by law. Electronically signed by: Paul Malcolm M.D. 11/28/2021 2:56 PM
[2021-11-28 15:07] LABS: INR 1.1 (0.9-1.1); Partial Thromboplastin Time 27.3 Seconds (21.0-31.0)
[2021-11-28] MEDS ORDERED: ONDANSETRON INJ 2 MG/ML 2 ML VIAL IV STA (15:10)
[2021-11-28] MEDS ORDERED: MoRPHine SULFATE 2 MG/ML CARP IV STA (15:10)
[2021-11-28 15:21] LABS: Potassium 3.7 mmol/L (3.5-5.1)
[2021-11-28 15:26] LABS: Albumin Level 3.2 gm/dl (3.4-5.0); BUN Creatinine Ratio 8.1 (10-20); Bilirubin,Total 1.6 mg/dl (0.2-1.0); Calcium 8.5 mg/dl (8.5-10.1); Creatinine Clr Calc Pharmacy 75.3 ml/min; Est GFR (African American) 91.9 ml/min; Est GFR (Non-African American) 79.3 ml/min; Globulin 3.2 gm/dl (2.5-4.0); Total Protein 6.4 gm/dl (6.0-8.3); Troponin I High Sensitivity 208.1 pg/ml (0-14)
[2021-11-28] MEDS ORDERED: OPTIRAY 320 125ml IV ONE (16:06)
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
[2021-11-28] MEDS ORDERED: KETOROLAC TROMETHAMINE 15 MG/ML VIAL IV ONE (16:41)
[2021-11-28] MEDS ORDERED: hydrALAZINE HCL 20 MG/ML VIAL IV STA (17:55)
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
[2021-11-28] MEDS ORDERED: MoRPHine SULFATE 2 MG/ML CARP ONE (19:53)
[2021-11-28] MEDS ORDERED: LOSARTAN POTASSIUM 50 MG TAB PO STA (21:11)
[2021-11-28] MEDS ORDERED: POLYETHYLENE (MIRALAX) 17 GM PACK PO PRN (22:42)
[2021-11-28] MEDS ORDERED: ONDANSETRON INJ 2 MG/ML 2 ML VIAL IV PRN (22:42)
[2021-11-28] MEDS ORDERED: ALBUTEROL HFA 8 GM INHALER INH PRN (22:42)
[2021-11-28] MEDS ORDERED: MoRPHine SULFATE 2 MG/ML CARP IV PRN (22:42)
[2021-11-29] MEDS: DICLOFENAC SOD 1% GEL 100 GM TUBE EXT SCH ×2 (00:32→20:42)
[2021-11-29] MEDS: hydrALAZINE HCL 20 MG/ML VIAL IV PRN ×2 (00:33→23:51)
[2021-11-29] MEDS: ACETAMINOPHEN 325 MG TAB PO PRN ×2 (00:33→09:53)
[2021-11-29] MEDS: KETOROLAC TROMETHAMINE 15 MG/ML VIAL IV PRN (01:51)
[2021-11-29 06:26] LABS: Basophils # (auto) 0.03 K/uL (0-0.2); Basophils % (auto) 0.5 %; Eosinophils % (auto) 9.1 %; Hematocrit (blood only) 36.7 % (37-47); Hemoglobin 12.4 g/dL (12.0-16.0); Lymphocytes % (auto) 40.1 %; Mean Corpuscular Hemoglobin 33.2 pg (25-34); Mean Corpuscular Hgb Conc 33.8 g/dL (32-36); Mean Corpuscular Volume 98.1 fL (80-100); Mean Platelet Volume 9.8 fL (7.4-10.4); Monocytes # (auto) 0.61 K/uL (0.11-0.59); Monocytes % (auto) 11.1 %; Neutrophils # (auto) 2.15 K/uL (1.4-6.5); Neutrophils % (auto) 39.2 %; Platelet Count 247 K/uL (130-400); RDW Coefficient of Variation 14.4 % (11.5-14.5); RDW Standard Deviation 51.9 fL (36.4-46.3); Red Blood Count 3.74 M/uL (4.2-5.4); White Blood Count 5.49 K/uL (4.8-10.8)
[2021-11-29 07:01] LABS: Albumin Level 2.8 gm/dl (3.4-5.0); BUN Creatinine Ratio 10.6 (10-20); Bilirubin Direct 0.4 mg/dl (0-0.2); Bilirubin,Total 1.4 mg/dl (0.2-1.0); Calcium 7.8 mg/dl (8.5-10.1); Creatinine Clr Calc Pharmacy 84.5 ml/min; Est GFR (African American) 100.2 ml/min; Est GFR (Non-African American) 86.4 ml/min; Potassium 3.4 mmol/L (3.5-5.1); Total Protein 5.4 gm/dl (6.0-8.3); Troponin I High Sensitivity 207.9 pg/ml (0-14)
--- NOTE | 2021-11-29 07:53 | Electrocardiogram Report ---
Test Reason : Blood Pressure : / mmHG Vent. Rate : 069 BPM Atrial Rate : 069 BPM P-R Int : 154 ms QRS Dur : 082 ms QT Int : 428 ms P-R-T Axes : 024 013 067 degrees QTc Int : 458 ms Normal sinus rhythm Normal ECG When compared with ECG of 28-NOV-2019 18:09, Premature atrial complexes are no longer Present Confirmed by Rashid Heaton ([id number]) on 11/29/2021 7:52:55 AM Referred By: REFERRED SELF Confirmed By:Rashid Heaton
[2021-11-29] MEDS: ENOXAPARIN INJ 40 MG/0.4 ML SYR SQ SCH (09:47)
[2021-11-29] MEDS: LOSARTAN POTASSIUM 50 MG TAB PO SCH (09:47)
[2021-11-29] MEDS: LIDOCAINE 5% 1 PATCH TD SCH (09:47)
[2021-11-29] MEDS: POTASSIUM CHLORIDE CRTAB 20 MEQ TABCR PO SCH ×2 (09:53→20:45)
--- NOTE | 2021-11-29 12:09 | Electrocardiogram Report ---
Test Reason : Blood Pressure : / mmHG Vent. Rate : 106 BPM Atrial Rate : 106 BPM P-R Int : 184 ms QRS Dur : 080 ms QT Int : 346 ms P-R-T Axes : 066 030 068 degrees QTc Int : 459 ms Sinus tachycardia with Premature atrial complexes in a pattern of bigeminy Otherwise normal ECG When compared with ECG of 28-NOV-2021 14:28, (unconfirmed) Premature atrial complexes are now Present Vent. rate has increased BY 37 BPM Confirmed by Kraig Noriega ([id number]) on 11/29/2021 12:08:58 PM Referred By: REFERRED SELF Confirmed By:Kraig Noriega
--- NOTE | 2021-11-29 12:42 | Electrocardiogram Report ---
Test Reason : Blood Pressure : / mmHG Vent. Rate : 068 BPM Atrial Rate : 068 BPM P-R Int : 144 ms QRS Dur : 086 ms QT Int : 478 ms P-R-T Axes : 071 062 125 degrees QTc Int : 508 ms Normal sinus rhythm Nonspecific T wave abnormality Prolonged QT Abnormal ECG When compared with ECG of 28-NOV-2021 17:00, (unconfirmed) Premature atrial complexes are no longer Present Vent. rate has decreased BY 38 BPM Nonspecific T wave abnormality, worse in Inferior leads Confirmed by Kraig Noriega ([id number]) on 11/29/2021 12:41:59 PM Referred By: REFERRED SELF Confirmed By:Kraig Noriega
--- NOTE | 2021-11-29 12:46 | Electrocardiogram Report ---
Test Reason : Blood Pressure : / mmHG Vent. Rate : 073 BPM Atrial Rate : 073 BPM P-R Int : 146 ms QRS Dur : 082 ms QT Int : 454 ms P-R-T Axes : 080 061 096 degrees QTc Int : 500 ms Normal sinus rhythm Prolonged QT Abnormal ECG When compared with ECG of 29-NOV-2021 05:54, (unconfirmed) Nonspecific T wave abnormality no longer evident in Inferior leads Confirmed by Kraig Noriega ([id number]) on 11/29/2021 12:45:59 PM Referred By: REFERRED SELF Confirmed By:Kraig Noriega
--- NOTE | 2021-11-29 13:10 | XCELERA ---
[id number] \\[id number]
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
[2021-11-29] MEDS ORDERED: traMADol HCL 50 MG TABLET PO PRN (15:53)
[2021-11-30] MEDS: ACETAMINOPHEN 325 MG TAB PO PRN (01:28)
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
[2021-11-30] MEDS: KETOROLAC TROMETHAMINE 15 MG/ML VIAL IV PRN (04:13)
[2021-11-30 04:16] LABS: Basophils # (auto) 0.03 K/uL (0-0.2); Basophils % (auto) 0.5 %; Eosinophils % (auto) 8.1 %; Hematocrit (blood only) 39.3 % (37-47); Hemoglobin 13.2 g/dL (12.0-16.0); Immature Granulocytes # (auto) 0.02 K/uL (0.00-0.02); Immature Granulocytes % (auto) 0.3 %; Lymphocytes # (auto) 2.41 K/uL (1.2-3.4); Lymphocytes % (auto) 38.9 %; Mean Corpuscular Hemoglobin 32.8 pg (25-34); Mean Corpuscular Hgb Conc 33.6 g/dL (32-36); Mean Corpuscular Volume 97.8 fL (80-100); Mean Platelet Volume 9.9 fL (7.4-10.4); Monocytes # (auto) 0.71 K/uL (0.11-0.59); Monocytes % (auto) 11.5 %; Neutrophils # (auto) 2.52 K/uL (1.4-6.5); Neutrophils % (auto) 40.7 %; Platelet Count 274 K/uL (130-400); RDW Coefficient of Variation 14.7 % (11.5-14.5); RDW Standard Deviation 52.5 fL (36.4-46.3); Red Blood Count 4.02 M/uL (4.2-5.4); White Blood Count 6.19 K/uL (4.8-10.8)
[2021-11-30 04:43] LABS: Albumin Level 2.9 gm/dl (3.4-5.0); BUN Creatinine Ratio 12.9 (10-20); Bilirubin,Total 1.3 mg/dl (0.2-1.0); Calcium 8.2 mg/dl (8.5-10.1); Creatinine Clr Calc Pharmacy 90.4 ml/min; Est GFR (African American) 102.2 ml/min; Est GFR (Non-African American) 88.2 ml/min; Globulin 2.8 gm/dl (2.5-4.0); Magnesium 1.9 mg/dl (1.7-2.4); Total Protein 5.7 gm/dl (6.0-8.3)
[2021-11-30 06:38] LABS: Potassium 3.7 mmol/L (3.5-5.1)
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
[2021-11-30] MEDS ORDERED: CALCIUM 600MG + VIT D 400 IU TAB PO SCH (09:00)
[2021-11-30] MEDS: LOSARTAN POTASSIUM 50 MG TAB PO SCH (09:57)
[2021-11-30] MEDS: LIDOCAINE 5% 1 PATCH TD SCH (10:01)
[2021-11-30] MEDS: ENOXAPARIN INJ 40 MG/0.4 ML SYR SQ SCH (10:01)
--- NOTE | 2021-12-01 19:19 | Electrocardiogram Report ---
Test Reason : Blood Pressure : / mmHG Vent. Rate : 073 BPM Atrial Rate : 073 BPM P-R Int : 142 ms QRS Dur : 078 ms QT Int : 446 ms P-R-T Axes : 080 060 061 degrees QTc Int : 491 ms Normal sinus rhythm with sinus arrhythmia Nonspecific T wave abnormality Prolonged QT Abnormal ECG When compared with ECG of 29-NOV-2021 08:21, No significant change was found Confirmed by Matt Hewitt ([id number]) on 12/01/2021 7:18:46 PM Referred By: REFERRED SELF Confirmed By:Matt Hewitt
== END 2021-11-30 10:48 | disposition home or self-care (01) ==
LOC: ED 13:39 → 2N 13:39 → SUATTDRO 18:39 → ED 21:48 → 2N 22:17

== ENCOUNTER 2022-03-21 11:50 | Observation (INO) ==
[2022-03-21] MEDS ORDERED: SODIUM CHLORIDE 0.9% 500 ML IV SCH (12:15)
--- NOTE | 2022-03-21 12:16 | Emergency Department Note ---
Impression & Plan Elevated troponin ADMIT ED Provider Note HPI: The patient is a 76-year-old female with history of paroxysmal atrial fibrillation, presents the emergency department with a chief complaint of being found down at home today with some mild confusion. Patient's daughter states that the patient was last seen last evening on her porch by a neighbor, she did not answer her phone this morning and therefore the patient's son-in-law went to check on her and found her naked on the bathroom floor. Patient seemed confused, complained of whole body pain. Patient was brought to the ED. On arrival here to the ED the patient is hypertensive, heart rate of 101, she is saturating well on room air, denies any focal complaint of pain but states "my whole body hurts". Patient is otherwise in no apparent distress on arrival, she is able to tell me her name and age but she is unsure of the year and she tells me it is 2019, she knows that she is in the hospital. ROS: -Neuro: Mild confusion -General: Found down *10 point review systems was conducted and is otherwise negative unless stated above *Outpatient medications and allergy history reviewed PE: General: Alert, not oriented to time but oriented to place and self HEENT: Normocephalic, trachea midline Eyes: Extraocular eye movement is intact, no scleral erythema Pulmonary: Clear to auscultation bilaterally, no wheezing Cardio: Regular rate and rhythm GI: Abdomen is soft, nontender : No suprapubic tenderness MSK: No evidence of trauma or malformation of the extremities, no edema Skin: No evidence of rash Neuro: Alert, no focal deficits, ambulates all extremities spontaneously without pain Psychiatric: Cooperative, mild confusion primary counselor: - An order was placed for continuous cardiac monitoring - Patient was noted to be in sinus rhythm with a rate of 90 EKG: Rate: 101 Rhythm: Sinus tachycardia Intervals: Within normal limits ST changes: No ST elevation Time: 1157 Interventions provided in ED: -IV fluid bolus Medical Decision Making: Patient presented to the emergency department after having been found down at home and a mild confused state. On arrival here to the ED the patient is alert to self, she is slightly off on time and thinks the year is 2019, she is aware that she is in the hospital. She does not have any focal deficits on arrival. Shortly after arrival IV established, lab work obtained, patient was placed on consulting psychologist. CT imaging of the head as well as CT imaging of the cervical spine and chest, abdomen, and pelvis were obtained that did not show any evidence of acute fractures or acute surgical abnormalities. Patient's lab work shows multiple abnormalities including leukocytosis greater than 16,000 of unclear source at this time, no evidence of pneumonia on CT chest, urinalysis is pending. Lactic acid also noted to be elevated at 3.8. Lab work also shows evidence of elevated CK level at 1991, troponin is elevated at 227, patient denies any current chest pain, EKG does not show any acute ischemic changes. We will hold on any heparinization at this time for these reasons and trend troponins upon admission. Patient was given IV fluids for suspected dehydration given the fact that she was down and CK level is elevated, although no evidence of TELMA, will hold on antibiotics at this time given lack of source for infection and possibly reactive given that the patient was on the ground for an unknown amount of time last evening. Urinalysis currently pending. Case was discussed with the on-call admitting team for [facility] provider group, Dr. Ortiz, and the patient was admitted in stable condition for further care. * CRITICAL CARE TIME: ( 35 ) minutes -Time spent independent of any procedures in regards to medical decision making in patient with complex medical issues and laboratory abnormalities, inte rpretation of diagnostic studies, discussion with other healthcare providers and arrangement of admission Diagnosis: 1. Altered mental status 2. Elevated CK level 3. Elevated troponin 4. Leukocytosis, nonspecific 5. Lactic acidosis 6. Found down Disposition: Admission Anthony Madison, DO Emergency Medicine Past Med/Surg History Medical History Asthma allergy induced--inhaler prn Chronic back pain Degenerative disc disease Dizziness Dyslipidemia Elevated troponin Gait disturbance Generalized osteoarthritis of multiple sites History of colon polyps Hyperplastic colon polyp Hypertension Hypothyroidism Liver [place] hx of, [place] [facility] [place]) Nausea and vomiting after administration of anesthetic agent Osteoarthritis Osteoporosis Physical deconditioning Radial head fracture Rib fractures Shortness of breath on exertion Spinal stenosis Status post placement of implantable loop recorder Syncope Vitamin B12 deficiency Vitamin D deficiency Surgical History History of ankle surgery right History of arthroscopy of left knee History of arthroscopy of right knee History of bilateral cataract extraction History of dilatation and curettage x2 History of lumbar discectomy History of lumbar spinal fusion History of open reduction and internal fixation (ORIF) procedure right wrist--hardware in place History of surgery of liver [place] [facility] [place] of total hysterectomy with bilateral salpingo-oophorectomy (BSO) S/P cholecystectomy S/P colonoscopic polypectomy S/P knee surgery bilateral knee replacement. 1997 Dr. Michael Family History Mother Colon cancer Ovarian cancer Diabetes Type 2 diabetes mellitus Acute myocardial infarction Father Congestive heart failure Lung cancer Sister Type 2 diabetes mellitus Arthritis Daughter Arthritis Thyroid disease Family history of reaction to anesthesia nausea/vomiting Son Hypertension Family/Other Arthritis Asthma Unknown VTE (venous thromboembolism) Daughter Family history of reaction to anesthesia nausea/vomiting Social History Smoking Status: Former smoker Tobacco Type: Cigarettes Age Started Using Tobacco: 16; Age Quit Using Tobacco: 16; Second Hand Exposure: No; Hx Alcohol Use: Yes Alcohol type: beer Hx Substance Use: No Preferred Language: [place] Citizen Communication Ability: Effective Visual Impairment: No Limitations Hearing Ability: Normal High School Social Studies Tutor Required: No Beliefs That Will Affect Care: None marital status: / Current Living Situation: Alone Current Living Situation Comment: grandson other: is ; 3 children Feels Safe at Home: Yes Childhood Exposure to Second-Hand Smoke: Yes Seatbelt Use: always Sunscreen Use: Yes Assistive Devices: Glasses Allergies Allergies Allergy/AdvReac Type Severity Reaction Status Date / Time Sulfa (Sulfonamide Allergy Intermediate Hives Verified 02/14/22 11:24 Antibiotics) adhesive Allergy Mild "rips skin Verified 02/14/22 11:24 off" hydroxychloroquine Allergy Mild vomiting Verified 02/14/22 11:24 lisinopril Allergy Mild Cough Verified 02/14/22 11:24 Iodinated Contrast Media Allergy Flushing Verified 03/21/22 13:09 Home Meds Home Medications Medication Instructions Recorded Confirmed albuterol sulfate 90 mcg/actuation 1 - 2 puffs inhalation Q4H PRN 03/06/19 02/14/22 aerosol inhaler (Proventil HFA) shortness of breath Previous Rx's Medication Instructions Recorded losartan 100 mg tablet 100 mg PO DAILY #30 tabs 08/19/21 Synthroid 75 mcg tablet 75 mcg PO QAM #90 tabs 02/14/22 (levothyroxine) Results & Data (ED) Vital Signs Vital Signs - 24 hr 03/21/22 11:57 03/21/22 12:39 03/21/22 13:57 Temperature 36.7 C Temperature Source Oral Pulse Rate 101 H 83 Pulse Rate [Radial] 92 H Pulse Rhythm Regular Regular Pulse Rhythm [Radial] Regular Pulse Strength Normal Pulse Strength [Radial] Normal Respiratory Rate 18 18 20 Respiratory Effort / Characteristics Non-Labored Spontaneous Non-Labored Spontaneous Respiratory Depth Normal Normal Respiratory Pattern Regular Regular Blood Pressure 178/109 H Blood Pressure [Right Arm] 206/96 H Blood Pressure Mean 132 Blood Pressure Mean [Right Arm] 132 Blood Pressure Position Lying Blood Pressure Position [Right Arm] Lying Pulse Oximetry 100 98 98 Oxygen Delivery Method Room Air Room Air Room Air Sepsis Recent Fever Within 48 Hours No Sepsis New/Unexplained Change in Mental Status No Sepsis Action Taken by Nursing No Action Required Laboratory Data Result diagrams: 03/21/22 12:07 03/21/22 12:07 Lab Results 03/21/22 03/21/22 03/21/22 Range/Units 12:07 12:07 12:07 WBC 16.63 H (4.8-10.8) K/ul RBC 3.73 L (3.93-5.22) M/uL Hgb 12.7 (12.0-16.0) g/dl Hct 36.5 (34.1-44.9) % MCV 97.9 (80.0-100.0) fL MCH 34.0 (25.0-34.0) pg MCHC 34.8 (32.0-36.0) g/dL RDW Std Deviation 49.2 H (36.4-46.3) fL RDW Coeff of Messi 13.7 (11.5-14.5) % Plt Count 260 (130-400) K/uL MPV 9.9 (9.4-12.3) fL Immature Gran % (Auto) 0.5 % Neut % (Auto) 85.8 % Lymph % (Auto) 7.5 % [place] % (Auto) 5.9 % Eos % (Auto) 0.1 % Baso % (Auto) 0.2 % Neut # (Auto) 14.28 H (1.4-6.5) K/uL Lymph # (Auto) 1.24 (1.2-3.4) K/uL [place] # (Auto) 0.98 H (0.24-0.82) K/uL Eos # (Auto) 0.01 (0-0.50) K/uL Baso # (Auto) 0.03 (0-0.2) K/uL Immature Gran # (Auto) 0.09 H (0.00-0.02) K/uL PT 13.7 H (9.0-12.0) Seconds INR 1.3 H (0.9-1.1) Sodium 134 L (136-145) mmol/L Potassium 3.2 L (3.5-5.1) mmol/L Chloride 102 (98-107) mmol/L Carbon Dioxide 22 (21-32) mmol/L Anion Gap 10 (3-11) BUN 22 (6-23) mg/dl Creatinine 1.06 (0.6-1.2) mg/dl Est Cr Clr Drug Dosing 54.5 ml/min Est GFR ( Amer) 59.5 ml/min Est GFR (Non-Af Amer) 51.3 ml/min BUN/Creatinine Ratio 20.8 H (10-20) Glucose 172 H (70-99(Fasting)) mg/dl Lactate (0.4-2.0) mmol/L Calcium 7.9 L (8.5-10.1) mg/dl Total Bilirubin 1.3 H (0.2-1.0) mg/dl AST 100 H (13-39) U/L ALT 29 (7-52) U/L Alkaline Phosphatase 74 (34-104) U/L Ammonia (18-72) umol/L Total Creatine Kinase 1991 H (26-192) U/L Troponin I High Sens 227.1 H* (0-14) pg/ml Total Protein 5.9 L (6.0-8.3) gm/dl Albumin 2.8 L (3.4-5.0) gm/dl Globulin 3.1 (2.5-4.0) gm/dl Albumin/Globulin Ratio 0.9 (0.9-2) Ethyl Alcohol mg/dL (<10.0) mg/dl SARS-CoV-2, RNA, NAAT (NEGATIVE) 03/21/22 03/21/22 03/21/22 Range/Units 12:35 12:40 13:14 WBC (4.8-10.8) K/ul RBC (3.93-5.22) M/uL Hgb (12.0-16.0) g/dl Hct (34.1-44.9) % MCV (80.0-100.0) fL MCH (25.0-34.0) pg MCHC (32.0-36.0) g/dL RDW Std Deviation (36.4-46.3) fL RDW Coeff of Messi (11.5-14.5) % Plt Count (130-400) K/uL MPV (9.4-12.3) fL Immature Gran % (Auto) % Neut % (Auto) % Lymph % (Auto) % [place] % (Auto) % Eos % (Auto) % Baso % (Auto) % Neut # (Auto) (1.4-6.5) K/uL Lymph # (Auto) (1.2-3.4) K/uL [place] # (Auto) (0.24-0.82) K/uL Eos # (Auto) (0-0.50) K/uL Baso # (Auto) (0-0.2) K/uL Immature Gran # (Auto) (0.00-0.02) K/uL PT (9.0-12.0) Seconds INR (0.9-1.1) Sodium (136-145) mmol/L Potassium (3.5-5.1) mmol/L Chloride (98-107) mmol/L Carbon Dioxide (21-32) mmol/L Anion Gap (3-11) BUN (6-23) mg/dl Creatinine (0.6-1.2) mg/dl Est Cr Clr Drug Dosing ml/min Est GFR ( Amer) ml/min Est GFR (Non-Af Amer) ml/min BUN/Creatinine Ratio (10-20) Glucose (70-99(Fasting)) mg/dl Lactate 3.8 H* (0.4-2.0) mmol/L Calcium (8.5-10.1) mg/dl Total Bilirubin (0.2-1.0) mg/dl AST (13-39) U/L ALT (7-52) U/L Alkaline Phosphatase (34-104) U/L Ammonia (18-72) umol/L Total Creatine Kinase (26-192) U/L Troponin I High Sens (0-14) pg/ml Total Protein (6.0-8.3) gm/dl Albumin (3.4-5.0) gm/dl Globulin (2.5-4.0) gm/dl Albumin/Globulin Ratio (0.9-2) Ethyl Alcohol mg/dL < 10.0 (<10.0) mg/dl SARS-CoV-2, RNA, NAAT NEGATIVE (NEGATIVE) 03/21/22 Range/Units 14:14 WBC (4.8-10.8) K/ul RBC (3.93-5.22) M/uL Hgb (12.0-16.0) g/dl Hct (34.1-44.9) % MCV (80.0-100.0) fL MCH (25.0-34.0) pg MCHC (32.0-36.0) g/dL RDW Std Deviation (36.4-46.3) fL RDW Coeff of Messi (11.5-14.5) % Plt Count (130-400) K/uL MPV (9.4-12.3) fL Immature Gran % (Auto) % Neut % (Auto) % Lymph % (Auto) % [place] % (Auto) % Eos % (Auto) % Baso % (Auto) % Neut # (Auto) (1.4-6.5) K/uL Lymph # (Auto) (1.2-3.4) K/uL [place] # (Auto) (0.24-0.82) K/uL Eos # (Auto) (0-0.50) K/uL Baso # (Auto) (0-0.2) K/uL Immature Gran # (Auto) (0.00-0.02) K/uL PT (9.0-12.0) Seconds INR (0.9-1.1) Sodium (136-145) mmol/L Potassium (3.5-5.1) mmol/L Chloride (98-107) mmol/L Carbon Dioxide (21-32) mmol/L Anion Gap (3-11) BUN (6-23) mg/dl Creatinine (0.6-1.2) mg/dl Est Cr Clr Drug Dosing ml/min Est GFR ( Amer) ml/min Est GFR (Non-Af Amer) ml/min BUN/Creatinine Ratio (10-20) Glucose (70-99(Fasting)) mg/dl Lactate (0.4-2.0) mmol/L Calcium (8.5-10.1) mg/dl Total Bilirubin (0.2-1.0) mg/dl AST (13-39) U/L ALT (7-52) U/L Alkaline Phosphatase (34-104) U/L Ammonia 70.0 (18-72) umol/L Total Creatine Kinase (26-192) U/L Troponin I High Sens (0-14) pg/ml Total Protein (6.0-8.3) gm/dl Albumin (3.4-5.0) gm/dl Globulin (2.5-4.0) gm/dl Albumin/Globulin Ratio (0.9-2) Ethyl Alcohol mg/dL (<10.0) mg/dl SARS-CoV-2, RNA, NAAT (NEGATIVE) Administered Medications Lactated Ringer's (Lr) 1,000 mls @ 150 mls/hr IV .Q6H40M LANE Stop: 03/22/22 03:19 Last Admin: 03/21/22 14:30 Dose: 150 mls/hr Documented By: RUBEN Discontinued Medications Sodium Chloride (Nss) 500 mls @ 999 mls/hr IV .Q31M LANE Stop: 03/21/22 12:45 Last Infusion: 03/21/22 14:27 Dose: 0 mls/hr Documented By: Admin: 03/21/22 13:16 Dose: 999 mls/hr Documented By: CATHLEEN Sodium Chloride (Nss 1000ml) 500 mls @ 999 mls/hr IV .Q31M ONE Stop: 03/21/22 14:32 Last Admin: 03/21/22 14:30 Dose: 999 mls/hr Documented By: RUBEN Imaging Data Radiologist's Impression: Abdomen/Pelvis CT 03/21/22 12:13 CT OF THE ABDOMEN AND PELVIS WITHOUT CONTRAST CLINICAL HISTORY: Trauma. COMPARISON STUDY: CT of the abdomen and pelvis November 28, 2021. TECHNIQUE: Axial images of the abdomen and pelvis were obtained without IV contrast. Images were reviewed in the axial, sagittal, and coronal planes. Automated exposure control was utilized for the study. A dose lowering technique was utilized adhering to the principles of ALARA. FINDINGS: Please note that the chest CT will be reported separately. No hemoperitoneum or pneumoperitoneum is present. Evaluation of the abdomen and pelvis is suboptimal on this unenhanced examination. The liver is cirrhotic. The gallbladder is surgically absent. Abdominal collaterals are again noted. Unenhanced images of the spleen, adrenal glands, left kidney and pancreas are unremarkable. There is mild right perinephric stranding, a nonspecific finding. There is no evidence for a bowel obstruction. Colonic diverticulosis is noted without evidence for acute diverticulitis. A few small bowel loops extend through a ventral hernia. There is no resultant bowel obstruction. No acute lumbar spine, pelvic or hip fracture is identified. IMPRESSION: 1. No hemoperitoneum or pneumoperitoneum. No evidence for traumatic injury to the solid abdominal viscera on unenhanced exam. 2. Mild asymmetric right perinephric stranding, a nonspecific finding. This could be correlated with urinalysis. 3. Cirrhotic liver with collaterals, unchanged. 4. No bowel obstruction. ACT 112: Negative or not required by law. Electronically signed by: Graeme Mike M.D. 03/21/2022 1:[address] 03/21/22 12:13 CT cervical spine wo con CLINICAL HISTORY: Trauma TECHNIQUE: Multidetector row helical CT of the cervical spine was performed without administration of intravenous contrast. Coronal and sagittal reformations were obtained. Automated dose lowering techniques and/or adjustment according to patient size were utilized for this exam. Comparison: Comparison is made to CTA neck 10/06/2019 FINDINGS: No acute fractures or subluxations are identified. Degenerative changes are seen including extensive osteophyte formation. The alignment is normal. Soft tissues are unremarkable. IMPRESSION: Degenerative changes without evidence of acute fracture. ACT 112: Negative or not required by law. Electronically signed by: Paul Malcolm M.D. 03/21/2022 1:[address] 03/21/22 12:13 CT chest diagnostic wo con CT DOSE: HISTORY: Fall. TECHNIQUE: Multiaxial CT images of the chest were performed without contrast. A dose lowering technique was utilized adhering to the principles of ALARA. COMPARISON: Chest CTA 11/28/2021. FINDINGS: There are old, healed bilateral rib fractures and an old, healed sternal fracture. No acute fractures identified within the chest. No pneumothorax. No pleural effusions. The central airways are patent. Mild dependent changes seen within the lungs posteriorly. Otherwise, no focal lung consolidations identified. The abdominal structures will be reported on the same day abdomen and pelvis CT. Nodular contour to the liver consistent with cirrhosis. Stable mild pericardial lymphadenopathy. No mediastinal hematoma. No hilar lymphadenopathy. Normal caliber thoracic aorta. The heart remains borderline enlarged. Normal esophagus. IMPRESSION: 1. No acute traumatic process within the chest. 2. Old, healed fractures as described above. 3. Cirrhotic liver and mild pericardial lymphadenopathy, unchanged. ACT 112: Negative or not required by law. Electronically signed by: Randy Cardoso M.D. 03/21/2022 1:[address] 03/21/22 12:13 CT head/brain wo con CLINICAL HISTORY: Trauma Technique: Contiguous axial CT images of the head were acquired from the base of the skull to the vertex without intravenous contrast administration. Images were viewed in brain, subdural and bone windows. Automated dose lowering techniques and/or adjustment according to patient size were utilized for this exam. Comparison: Comparison is made to CT head 01/28/2021 Findings: The ventricles, basal cisterns, and cerebral sulci are normal. There is no acute intracranial hemorrhage or evidence of acute territorial infarction. Neither mass effect, shift of the midline structures, nor abnormal extra-axial fluid collections are shown. Imaged portions of the paranasal sinuses and mastoid air cells are clear. The orbits appear normal. There are no acute fractures of the calvaria or scalp swelling. Impression: No acute intracranial hemorrhage, no evidence of acute territorial infarction or other acute intracranial disease process. ACT 112: Negative or not required by law. Electronically signed by: Paul Malcolm M.D. 03/21/2022 1:16 PM Discharge Plan Visit Data Chief Complaint: Fall Stated Complaint: FALL, AMS ED Provider: Anthony Madison Discharge Problem: Elevated troponin Patient Disposition: Admitted As Inpatient Forms Stand Alone Forms: [facility] Prescriptions Prescriptions: No Action albuterol sulfate [Proventil HFA] 90 mcg/actuation HFA aerosol inhaler 1 - 2 puffs INH Q4H PRN (Reason: shortness of breath) levothyroxine [Synthroid] 75 mcg tablet 75 mcg PO QAM Qty: 90 2RF Rx Instructions: brand name only losartan 100 mg tablet 100 mg PO DAILY Qty: 30 11RF Referrals Referrals: Natasha Javed DO [Primary Care Provider] -
[2022-03-21 12:30] LABS: Basophils # (auto) 0.03 K/uL (0-0.2); Basophils % (auto) 0.2 %; Eosinophils # (auto) 0.01 K/uL (0-0.50); Eosinophils % (auto) 0.1 %; Hematocrit (blood only) 36.5 % (34.1-44.9); Hemoglobin 12.7 g/dl (12.0-16.0); Immature Granulocytes # (auto) 0.09 K/uL (0.00-0.02); Immature Granulocytes % (auto) 0.5 %; Lymphocytes # (auto) 1.24 K/uL (1.2-3.4); Lymphocytes % (auto) 7.5 %; Mean Corpuscular Hgb Conc 34.8 g/dL (32.0-36.0); Mean Corpuscular Volume 97.9 fL (80.0-100.0); Mean Platelet Volume 9.9 fL (9.4-12.3); Monocytes # (auto) 0.98 K/uL (0.24-0.82); Monocytes % (auto) 5.9 %; Neutrophils # (auto) 14.28 K/uL (1.4-6.5); Neutrophils % (auto) 85.8 %; Platelet Count 260 K/uL (130-400); RDW Coefficient of Variation 13.7 % (11.5-14.5); RDW Standard Deviation 49.2 fL (36.4-46.3); Red Blood Count 3.73 M/uL (3.93-5.22); White Blood Count 16.63 K/ul (4.8-10.8)
[2022-03-21 12:50] LABS: INR 1.3 (0.9-1.1); Prothrombin Time 13.7 Seconds (9.0-12.0)
[2022-03-21 12:52] LABS: Albumin Globulin Ratio 0.9 (0.9-2); Albumin Level 2.8 gm/dl (3.4-5.0); BUN Creatinine Ratio 20.8 (10-20); Bilirubin,Total 1.3 mg/dl (0.2-1.0); Calcium 7.9 mg/dl (8.5-10.1); Creatinine Clr Calc Pharmacy 54.5 ml/min; Est GFR (African American) 59.5 ml/min; Est GFR (Non-African American) 51.3 ml/min; Globulin 3.1 gm/dl (2.5-4.0); Potassium 3.2 mmol/L (3.5-5.1); Total Protein 5.9 gm/dl (6.0-8.3); Troponin I High Sensitivity 227.1 pg/ml (0-14)
--- NOTE | 2022-03-21 13:17 | CT Scan Report ---
CT head/brain wo con CLINICAL HISTORY: Trauma Technique: Contiguous axial CT images of the head were acquired from the base of the skull to the torin souleymane without intravenous contrast administration. Images were viewed in brain, subdural and [facility]. Automated dose lowering techniques and/or adjustment according to patient size were utilized for this exam. Comparison: Comparison is made to CT head 01/28/2021 Findings: The ventricles, basal cisterns, and cerebral sulci are normal. There is no acute intracranial hemorrh age or evidence of acute territorial infarction. Neither mass effect, shift of the midline structures , nor abnormal extra-axial fluid collections are shown. Imaged portions of the paranasal sinuses and mastoid air cells are clear. The orbits appear normal. There are no acute fractures of the calvaria or scalp swelling. Impression: No acute intracranial hemorrhage, no evidence of acute territorial infarction or other acute intracra nial disease process. ACT 112: Negative or not required by law. Electronically signed by: Paul Malcolm M.D. 03/21/2022 1:16 PM
--- NOTE | 2022-03-21 13:24 | CT Scan Report ---
CT chest diagnostic wo con CT DOSE: HISTORY: Fall. TECHNIQUE: Multiaxial CT images of the chest were performed without contrast. A dose lowering techni que was utilized adhering to the principles of ALARA. COMPARISON: Chest CTA 11/28/2021. FINDINGS: There are old, healed bilateral rib fractures and an old, healed sternal fracture. No acute fractures identified within the chest. No pneumothorax. No pleural effusions. The central airways ar e patent. Mild dependent changes seen within the lungs posteriorly. Otherwise, no focal lung consolid ations identified. The abdominal structures will be reported on the same day abdomen and pelvis CT. N odular contour to the liver consistent with cirrhosis. Stable mild pericardial lymphadenopathy. No me diastinal hematoma. No hilar lymphadenopathy. Normal caliber thoracic aorta. The heart remains border line enlarged. Normal esophagus. IMPRESSION: 1. No acute traumatic process within the chest. 2. Old, healed fractures as described above. 3. Cirrhotic liver and mild pericardial lymphadenopathy, unchanged. ACT 112: Negative or not required by law. Electronically signed by: Randy Cardoso M.D. 03/21/2022 1:23 PM
--- NOTE | 2022-03-21 13:32 | CT Scan Report ---
CT OF THE ABDOMEN AND PELVIS WITHOUT CONTRAST CLINICAL HISTORY: Trauma. COMPARISON STUDY: CT of the abdomen and pelvis November 28, 2021. TECHNIQUE: Axial images of the abdomen and pelvis were obtained without IV contrast. Images were revi ewed in the axial, sagittal, and coronal planes. Automated exposure control was utilized for the virgilio dy. A dose lowering technique was utilized adhering to the principles of ALARA. FINDINGS: Please note that the chest CT will be reported separately. No hemoperitoneum or pneumoperit oneum is present. Evaluation of the abdomen and pelvis is suboptimal on this unenhanced examination. The liver is cirrhotic. The gallbladder is surgically absent. Abdominal collaterals are again noted. Unenhanced images of the spleen, adrenal glands, left kidney and pancreas are unremarkable. There is mild right perinephric stranding, a nonspecific finding. There is no evidence for a bowel obstruction . Colonic diverticulosis is noted without evidence for acute diverticulitis. A few small bowel loops extend through a ventral hernia. There is no resultant bowel obstruction. No acute lumbar spine, pelv ic or hip fracture is identified. IMPRESSION: 1. No hemoperitoneum or pneumoperitoneum. No evidence for traumatic injury to the solid abdominal vis cera on unenhanced exam. 2. Mild asymmetric right perinephric stranding, a nonspecific finding. This could be correlated with urinalysis. 3. Cirrhotic liver with collaterals, unchanged. 4. No bowel obstruction. ACT 112: Negative or not required by law. Electronically signed by: Graeme Mike M.D. 03/21/2022 1:30 PM
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
--- NOTE | 2022-03-21 14:00 | CT Scan Report ---
CT cervical spine wo con CLINICAL HISTORY: Trauma TECHNIQUE: Multidetector row helical CT of the cervical spine was performed without administration of intravenous contrast. Coronal and sagittal reformations were obtained. Automated dose lowering techn iques and/or adjustment according to patient size were utilized for this exam. Comparison: Comparison is made to CTA neck 10/06/2019 FINDINGS: No acute fractures or subluxations are identified. Degenerative changes are seen including extensive osteophyte formation. The alignment is normal. Soft tissues are unremarkable. IMPRESSION: Degenerative changes without evidence of acute fracture. ACT 112: Negative or not required by law. Electronically signed by: Paul Malcolm M.D. 03/21/2022 1:58 PM
[2022-03-21] MEDS ORDERED: SODIUM CHLORIDE 0.9% 1000ML 500 ML IV ONE (14:02)
[2022-03-21] MEDS ORDERED: amLODIPine BESYLATE 5 MG TAB PO ONE (14:25)
[2022-03-21] MEDS: LACTATED RINGER'S 1,000 ML IV SCH ×2 (14:30→16:41)
[2022-03-21] MEDS ORDERED: ACETAMINOPHEN 325 MG TAB PO STA (15:02)
--- NOTE | 2022-03-21 15:35 | Electrocardiogram Report ---
Test Reason : Blood Pressure : / mmHG Vent. Rate : 101 BPM Atrial Rate : 101 BPM P-R Int : 148 ms QRS Dur : 080 ms QT Int : 354 ms P-R-T Axes : 052 048 061 degrees QTc Int : 459 ms Sinus tachycardia with Premature supraventricular complexes Otherwise normal ECG When compared with ECG of 30-NOV-2021 04:18, Premature supraventricular complexes are now Present Confirmed by Kraig Noriega ([id number]) on 03/21/2022 3:35:26 PM Referred By: REFERRED SELF Confirmed By:Kraig Noriega
[2022-03-21] MEDS ORDERED: CARBOHYDRATES FOR HYPOGLYCEMIA PO PRN (15:54)
[2022-03-21] MEDS ORDERED: GLUCOSE 40% GEL 15 GM TUBE PO PRN (15:54)
[2022-03-21] MEDS ORDERED: DEXTROSE 50% 50 ML SYRINGE IV PRN (15:54)
[2022-03-21] MEDS ORDERED: ACETAMINOPHEN 325 MG TAB PO PRN (15:54)
[2022-03-21] MEDS ORDERED: GLUCAGON FOR INJ 1 MG VIAL SQ PRN (15:54)
[2022-03-21] MEDS ORDERED: POLYETHYLENE (MIRALAX) 17 GM PACK PO PRN (15:54)
[2022-03-21] MEDS ORDERED: ALBUTEROL HFA 8 GM INHALER INH PRN (15:54)
[2022-03-21] MEDS ORDERED: ALUMINUM/MAGNESIUM SUSP 30 ML UDC PO PRN (15:54)
[2022-03-21] MEDS ORDERED: GLUCOSE 10 TAB/TUBE PO PRN (15:54)
[2022-03-21] MEDS ORDERED: guaiFENesin 600 MG TABCR PO PRN (15:54)
[2022-03-21 16:07] LABS: Appearance Urine Turbid (Clear); Bacteria Urine Automated 4+ (Negative); Bilirubin Urine Negative (Negative); Blood Urine 1+ (Negative); Color Urine Dark Yellow; Epithelial Cell Urine Auto >30 /lpf (0-5); Glucose Urine UA Negative (Negative); Ketones Urine Negative (Negative); Leukocyte Esterase Urine 3+ (Negative); Nitrite Urine Negative (Negative); Protein Urine 1+ (Negative); Specific Gravity Urine 1.016 (1.000-1.030); Urobilinogen Urine Negative (Negative); WBC Urine Automated >30 /hpf (0-5)
[2022-03-21] MEDS ORDERED: INSULIN ASPART PER UNIT SC SCH (16:30)
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
[2022-03-21] MEDS: NYSTATIN CR 15 GM TUBE EXT SCH (17:22)
[2022-03-21] MEDS: cefTRIAXone SODIUM 2,000 MG in DEXTROSE 5% 50 ML IV SCH (17:22)
[2022-03-21 18:51] LABS: Adenovirus F 40/41 PCR Not Detected (NotDetected); Astrovirus PCR Not Detected (NotDetected); Campylobacter PCR Not Detected (NotDetected); Clostridium diff Toxin A/B PCR Not Detected (NotDetected); Cryptosporidium PCR Not Detected (NotDetected); Cyclospora cayetanensis PCR Not Detected (NotDetected); Entamoeba histolytica PCR Not Detected (NotDetected); Enteroaggregative E.coli(EAEC) Not Detected (NotDetected); Enteropathogenic E.coli (EPEC) Not Detected (NotDetected); Enterotoxigenic E.coli (ETEC) Not Detected (NotDetected); Giardia lamblia PCR Not Detected (NotDetected); Norovirus GI/GII PCR Not Detected (NotDetected); Plesiomonas shigelloides PCR Not Detected (NotDetected); Rotavirus A PCR Not Detected (NotDetected); Salmonella PCR Not Detected (NotDetected); Sapovirus PCR Not Detected (NotDetected); Shiga-like Toxin E.coli (STEC) Not Detected (NotDetected); Shigella/Enteroinvasive E.coli Not Detected (NotDetected); Vibrio cholerae PCR Not Detected (NotDetected); Vibrio species PCR Not Detected (NotDetected); Yersinia enterocolitica PCR Not Detected (NotDetected)
[2022-03-21] MEDS: POTASSIUM CHLORIDE CRTAB 20 MEQ TABCR PO SCH (20:42)
--- NOTE | 2022-03-21 21:49 | Communication Note ---
Date of Service: March 21, 2022 Notified by nursing at 927PM of chills and HR 159. Per tele, 130s-140s. By time of my exam, this had improved. HR 100s-110s, sinus w/ visible p waves, occasional irregularity. A&Ox1. Slightly increased confusion per nursing. Ordered labs, including blood cultures (though this is after receiving Rocephin). Lactate elevated but w/ slight downtrending 3.8->3.2->2.8. Procal 1.15, would be consistent w/ UTI. Uptrending leukocytosis.
[2022-03-21] MEDS: POTASSIUM CHLORIDE / WTR 10 MEQ/100 ML PLCT IV SCH ×2 (22:49→23:57)
[2022-03-21 23:05] LABS: Albumin Level 3.1 gm/dl (3.4-5.0); BUN Creatinine Ratio 19.8 (10-20); Bilirubin,Total 1.4 mg/dl (0.2-1.0); Calcium 7.9 mg/dl (8.5-10.1); Creatinine Clr Calc Pharmacy 54.5 ml/min; Est GFR (African American) 59.5 ml/min; Est GFR (Non-African American) 51.3 ml/min; Globulin 3.2 gm/dl (2.5-4.0); Magnesium 1.7 mg/dl (1.7-2.4); Potassium 3.2 mmol/L (3.5-5.1); Total Protein 6.3 gm/dl (6.0-8.3)
[2022-03-21 23:09] LABS: Troponin I High Sensitivity 226.3 pg/ml (0-14)
[2022-03-22] MEDS: MAGNESIUM SULFATE / D5W 1 GM/100 ML BAG IV SCH ×2 (01:25→03:31)
[2022-03-22 06:42] LABS: Basophils # (auto) 0.05 K/uL (0-0.2); Basophils % (auto) 0.2 %; Eosinophils # (auto) 0.01 K/uL (0-0.50); Hematocrit (blood only) 35.4 % (34.1-44.9); Hemoglobin 12.5 g/dl (12.0-16.0); Immature Granulocytes # (auto) 0.11 K/uL (0.00-0.02); Immature Granulocytes % (auto) 0.5 %; Lymphocytes # (auto) 1.64 K/uL (1.2-3.4); Lymphocytes % (auto) 7.4 %; Mean Corpuscular Hemoglobin 34.2 pg (25.0-34.0); Mean Corpuscular Hgb Conc 35.3 g/dL (32.0-36.0); Mean Platelet Volume 10.1 fL (9.4-12.3); Monocytes # (auto) 1.84 K/uL (0.24-0.82); Monocytes % (auto) 8.3 %; Neutrophils # (auto) 18.43 K/uL (1.4-6.5); Neutrophils % (auto) 83.6 %; Platelet Count 244 K/uL (130-400); RDW Coefficient of Variation 13.5 % (11.5-14.5); RDW Standard Deviation 48.5 fL (36.4-46.3); Red Blood Count 3.65 M/uL (3.93-5.22); White Blood Count 22.08 K/ul (4.8-10.8)
[2022-03-22 07:40] LABS: Albumin Level 2.6 gm/dl (3.4-5.0); BUN Creatinine Ratio 20.2 (10-20); Bilirubin,Total 1.1 mg/dl (0.2-1.0); Calcium 7.5 mg/dl (8.5-10.1); Creatinine Clr Calc Pharmacy 52.9 ml/min; Est GFR (African American) 57.5 ml/min; Est GFR (Non-African American) 49.6 ml/min; Globulin 2.7 gm/dl (2.5-4.0); Potassium 3.7 mmol/L (3.5-5.1); Total Protein 5.3 gm/dl (6.0-8.3)
[2022-03-22 07:49] LABS: Estimated Average Glucose 108 mg/dl; Hemoglobin A1C 5.4 % (4.5-5.6)
[2022-03-22] MEDS: NYSTATIN CR 15 GM TUBE EXT SCH (08:22)
[2022-03-22] MEDS: POTASSIUM CHLORIDE CRTAB 20 MEQ TABCR PO SCH ×2 (08:22→21:27)
[2022-03-22] MEDS: LIDOCAINE 5% 1 PATCH TD SCH (08:23)
[2022-03-22] MEDS ORDERED: amLODIPine BESYLATE 5 MG TAB PO SCH (09:00)
--- NOTE | 2022-03-22 09:27 | XCELERA ---
[id number]
--- NOTE | 2022-03-22 11:13 | Electrocardiogram Report ---
Test Reason : Blood Pressure : / mmHG Vent. Rate : 108 BPM Atrial Rate : 108 BPM P-R Int : 128 ms QRS Dur : 082 ms QT Int : 334 ms P-R-T Axes : 074 041 071 degrees QTc Int : 447 ms Sinus tachycardia with Premature atrial complexes Diffuse Minor Nonspecific ST and T wave abnormality Abnormal ECG When compared with ECG of 21-MAR-2022 21:46, Premature ventricular complexes are no longer Present Premature atrial complexes are now Present Confirmed by Cortes Rubio ([id number]) on 03/22/2022 11:12:50 AM Referred By: REFERRED SELF Confirmed By:Cortes Rubio
--- NOTE | 2022-03-22 12:18 | Hospitalist Progress Note ---
Date of Service March 22, 2022 Assessment & Plan (1) Falls: Plan: - Suspect etiology of fall was secondary to infectious source - D/t h/o falls, previously thought to be presyncope due to an underlying arrhythmia. Has a loop recorder device. Cardio consulted. * Seen by Dr. Noriega, mildly elevated troponin felt to represent supply-demand mismatch and not ACS * Did not feel fall was cardiogenic in etiology - Will have PT and OT work with patient while she is here. - Anticipate pt will need additional support upon d/c, daughters are both willing to have her stay with them and have home pt/ot, don't seem interested in acute rehab (2) UTI (urinary tract infection): Plan: with associated fall and leukocytosis- met sepsis criteria with +UA, leukocytosis, tachycardia - Urine culture and blood cultures ordered, pending - Empirically on Rocephin - Received IVF d/t mild rhabdo - Await culture results and tailor abx accordingly (3) Rhabdomyolysis: Plan: - CK 2000, Cr 1.26, baseline < 1. - Unknown how long patient was down on the ground. - 500 cc given in ED, will give additional LR's at 150 cc/hour x2 L. - Recheck BMP and CK in AM. - CK improved to 814, fluids capped, renal fxn normalized (4) TELMA (acute kidney injury): Plan: - Secondary to rhabdo. Has not been taking any NSAIDs for pain, losartan has been held for at least 1 month. - RESOLVED with IVF (5) Elevated troponin: Plan: - Troponin elevated to 227, patient without any chest pain, palpitation, shortness of breath, no anginal equivalents. - She does have history of arrhytmia, see 'afib' below; prolonged QT, LVH. Has a loop recording device. - Has followed with Dr. Hewitt in the past, last note from August. - EKG shows sinus tachycardia with PVCs, no ST segment or T wave changes. - Secondary to supply-demand mismatch and not acs, appreciate cardiology input - Echo ordered/completed, other than now mild pulmonary htn no significant change from echo in November 2021 (6) Paroxysmal atrial fibrillation: Plan: - History of, with a loop recorder. Per EP note from August, the rhythms identified as A. fib are felt to more likely be sinus rhythm with premature atrial and ventriuclar beats. - Determined not to need anticoagulation. (7) Type 2 diabetes mellitus: Plan: - Diet controlled. - Glucose 172 on BMP. - Will order Accu-Cheks with SSI and an A1c to get a sense of patients glucose range (8) Hypertension: Plan: - Patient was significantly hypertensive on last admission in November, and again today is presenting with SBP 200s. She was discharged on losartan in November, however BP has been 120s/70s at PCP appointment, therefore was determined she does not need losartan. - 5 mg amlodipine given in ED given high BP, headache. - Will order as needed medications for elevated BP while she is admitted. BP may be elevated partially in the setting of pain. It is unusual that she pr esents with significantly elevated BPs in the hospital, however seems to be very well controlled in the outpatient setting. (9) Asthma: Plan: - Albuterol inhaler as needed. - Has been coughing the past few days, but no shortness of breath or sputum production. No evidence of pneumonia on imaging. - Supportive care. (10) Hypothyroid: Plan: - Continue Synthroid. (11) Osteoporosis: Plan: - Has declined Fosamax and repeat DEXA in the past. (12) Dyslipidemia: Plan: - Diet controlled. Patient has a strong desire to minimize pill burden. Plan PT/OT eval. Continue abx. Repeat labs in AM. Anticipate can be d/c'd as early as tomorrow in care of family. Plan d/w Dr. Carlos Alberto Batista. Admission and Anticipated Discharge Date Admission Date: March 21, 2022 Subjective Patient seen on daily rounds this morning. She is resting comfortably in bed and reports no complaints other than some irritation from the external urinary catheter (purewick). She denies cp or dyspnea. No n/v. She denies having dysuria, urgency, or frequency prior to admission. Denies fever or chills. Review of Systems Review of Systems: All systems reviewed and are unremarkable except as noted in HPI and below. Denies fever, chills, fatigue, headache, nasal congestion, sore throat, cough, chest pain, shortness of breath, palpitations, orthopnea, PND, abdominal pain, n/v/d, constipation, dysuria, hematuria, frequency, back pain, joint pain or swelling, easy bruising or bleeding, skin lesions or rashes. Physical Exam Physical Exam: GENERAL: 76 yo Well-developed, well-nourished elderly WF. NAD. LUNGS: Clear to auscultation bilaterally. No W/R/R. CARDIOVASCULAR: Regular rate and rhythm. ABDOMEN: Soft, non-tender and non-distended. BS normoactive x 4 quad. EXTREMITIES: No edema. Non-tender. Peripheral pulses +2/4. NEUROLOGIC: A&O x3. Nonfocal PSYCHIATRIC: Cooperative. Appropriate mood and affect. SKIN: Warm, dry, intact. No rashes or lesions. Results & Data Results & Data ([facility]) Vital Signs (Past 12 Hours) Vital Signs Temp Pulse Pulse Resp BP Pulse Ox O2 Del Method 03/22/22 11:25 36.9 C 86 18 143/71 H 95 Room Air 03/22/22 08:08 36.7 C 77 20 131/79 97 Room Air 03/22/22 07:09 75 03/22/22 03:50 36.7 C 96 H 18 133/75 97 Room Air 03/22/22 00:53 104 H Laboratory Results 03/22/22 05:21 03/22/22 05:21 PG Care Time/CCT Total # of Minutes Spent Total Time Spent with Patient: Total time spent is greater than 50% in coordination of care (as documented) at patient's floor/unit and/or counseling patient: Coding Level of Care Code 41400 Subseq Hosp Care Lvl 3 Diagnoses Falls W19.XXXA Encounter type: initial encounter UTI (urinary tract infection) N39.0 Rhabdomyolysis M62.82 TELMA (acute kidney injury) N17.9 Elevated troponin R77.8 Paroxysmal atrial fibrillation I48.0 Type 2 diabetes mellitus E11.9 Diabetes mellitus chcf insulin use: without chcf use Diabetes mellitus complication status: without complication Hypertension I10 Hypertension type: unspecified Asthma J45.909 Hypothyroid E03.9 Hypothyroidism type: acquired Osteoporosis M81.0 Dyslipidemia E78.5 (1) Falls Encounter type: initial encounter Qualified Code(s): W19.XXXA - Unspecified fall, initial encounter (2) Type 2 diabetes mellitus Diabetes mellitus chcf insulin use: without chcf use Diabetes mellitus complication status: without complication Qualified Code(s): E11.9 - Type 2 diabetes mellitus without complications (3) Hypertension Hypertension type: unspecified Qualified Code(s): I10 - Essential (primary) hypertension (4) Hypothyroid Hypothyroidism type: acquired Qualified Code(s): E03.9 - Hypothyroidism, unspecified
[2022-03-22] MEDS: cefTRIAXone SODIUM 2,000 MG in DEXTROSE 5% 50 ML IV SCH (17:34)
[2022-03-23 06:51] LABS: Basophils # (auto) 0.05 K/uL (0-0.2); Basophils % (auto) 0.4 %; Eosinophils # (auto) 0.25 K/uL (0-0.50); Eosinophils % (auto) 1.8 %; Hematocrit (blood only) 34.8 % (34.1-44.9); Hemoglobin 12.4 g/dl (12.0-16.0); Immature Granulocytes # (auto) 0.06 K/uL (0.00-0.02); Immature Granulocytes % (auto) 0.4 %; Mean Corpuscular Hemoglobin 34.1 pg (25.0-34.0); Mean Corpuscular Hgb Conc 35.6 g/dL (32.0-36.0); Mean Corpuscular Volume 95.6 fL (80.0-100.0); Mean Platelet Volume 10.3 fL (9.4-12.3); Monocytes # (auto) 1.45 K/uL (0.24-0.82); Monocytes % (auto) 10.3 %; Neutrophils # (auto) 10.85 K/uL (1.4-6.5); Neutrophils % (auto) 77.1 %; Platelet Count 236 K/uL (130-400); RDW Coefficient of Variation 13.5 % (11.5-14.5); RDW Standard Deviation 47.8 fL (36.4-46.3); Red Blood Count 3.64 M/uL (3.93-5.22); White Blood Count 14.06 K/ul (4.8-10.8)
[2022-03-23 07:21] LABS: Calcium 7.4 mg/dl (8.5-10.1); Creatinine Clr Calc Pharmacy 66.3 ml/min; Est GFR (African American) 77.7 ml/min; Magnesium 2.2 mg/dl (1.7-2.4); Potassium 3.8 mmol/L (3.5-5.1)
[2022-03-23] MEDS: LIDOCAINE 5% 1 PATCH TD SCH (08:06)
[2022-03-23] MEDS: NYSTATIN CR 15 GM TUBE EXT SCH (08:13)
[2022-03-23] MEDS: POTASSIUM CHLORIDE CRTAB 20 MEQ TABCR PO SCH (08:14)
--- NOTE | 2022-03-23 08:32 | Discharge Summary ---
Date of Service March 23, 2022 Admission HPI Per Admitting Provider Madeleine Arzola is a 76 y/o female with a PMH significant for paroxysmal A. fib, LVH, prolonged QT, hypertension, hyperlipidemia, diabetes, hypothyroidism, and asthma who is presenting today after a fall. Patient was last seen on her porch last evening by neighbors, in her usual state of health. Her daughter tried to call her last evening and did not get a hold of her, therefore she had a family member checked on the patient this morning. When they arrived they found her naked on the bathroom floor, confused to time and place. Upon arrival, patient's mental status seems to wax and wane, she is able to tell me the month, year, and her date of and is aware she is in the hospital, but at other times has been talking to her daughter about events that happened 20+ years ago, and believes they are recent events. Not complaining of any specific pain, says that she has chronic low back pain which is same as it always is, no worse. 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 She does not remember how the fall happened at all. At one point she told family member that she needed to use the bathroom but could not walk so she crawled into the bathroom. She was not found to be incontinent of urine or stool when EMS arrived. She has had a lingering nonproductive cough for the past few days, as does the rest of her family who she has been around, but has not had any fever or chills, chest pain, shortness of breath, palpitations, abdominal pain, nausea, vomiting, urinary symptoms, or issues with bowel movements. It is unknown how long she had been down on the ground. Patient denies tobacco, drug, or alcohol use. She drinks very rarely, on special occasions. No history of alcohol use disorder. Every 5 years ago, she had a benign tumor removed from her liver, no other history of liver disease. Upon arrival to the ED, she is quite hypertensive 178/109, otherwise vital signs are within normal limits and stable. She is has an elevated WBC at 16 with left shift. Her troponin is 227, CK 2000. Creatinine elevated 1.26, baseline < 1.0. Potassium is slightly low at 3.2. CT of the head does not show evidence of hemorrhage, infarction, or acute intracranial process. C-spine CT without fractures or other acute process. Chest CT shows old, healed fractures. No trauma. CT of the abdomen pelvis shows cirrhotic liver with pericardial lymphadenopathy which is unchanged, but no other acute findings. Principal Diagnosis 1. Sepsis syndrome secondary to UTI 2. Fall with associated rhabdomyolysis 3. Elevated troponin secondary to supply-demand mismatch 4. Mild TELMA - resolved Discharge Exam GENERAL: 76 yo Well-developed, well-nourished elderly WF. NAD. LUNGS: Clear to auscultation bilaterally. No W/R/R. CARDIOVASCULAR: Regular rate and rhythm. ABDOMEN: Soft, non-tender and non-distended. BS normoactive x 4 quad. EXTREMITIES: No edema. Non-tender. Peripheral pulses +2/4. NEUROLOGIC: A&O x3. Nonfocal PSYCHIATRIC: Cooperative. Appropriate mood and affect. SKIN: Warm, dry, intact. No rashes or lesions. Discharge Data Allergies Allergy/AdvReac Type Severity Reaction Status Date / Time Sulfa (Sulfonamide Allergy Intermediate Hives Verified 02/14/22 11:24 Antibiotics) adhesive Allergy Mild "rips skin Verified 02/14/22 11:24 off" hydroxychloroquine Allergy Mild vomiting Verified 02/14/22 11:24 lisinopril Allergy Mild Cough Verified 02/14/22 11:24 Iodinated Contrast Media Allergy Flushing Verified 03/21/22 13:09 Consultations Cardiology consulted for elevated troponin - seen by Dr. Noriega, please see consult note for further details Ordered Studies Abdomen/Pelvis CT 03/21/22 12:13 CT OF THE ABDOMEN AND PELVIS WITHOUT CONTRAST CLINICAL HISTORY: Trauma. COMPARISON STUDY: CT of the abdomen and pelvis November 28, 2021. TECHNIQUE: Axial images of the abdomen and pelvis were obtained without IV contrast. Images were reviewed in the axial, sagittal, and coronal planes. Au tomated exposure control was utilized for the study. A dose lowering technique was utilized adhering to the principles of ALARA. FINDINGS: Please note that the chest CT will be reported separately. No hemoperitoneum or pneumoperitoneum is present. Evaluation of the abdomen and pelvis is suboptimal on this unenhanced examination. The liver is cirrhotic. The gallbladder is surgically absent. Abdominal collaterals are again noted. Unenhanced images of the spleen, adrenal glands, left kidney and pancreas are unremarkable. There is mild right perinephric stranding, a nonspecific finding. There is no evidence for a bowel obstruction. Colonic diverticulosis is noted without evidence for acute diverticulitis. A few small bowel loops extend through a ventral hernia. There is no resultant bowel obstruction. No acute lumbar spine, pelvic or hip fracture is identified. IMPRESSION: 1. No hemoperitoneum or pneumoperitoneum. No evidence for traumatic injury to the solid abdominal viscera on unenhanced exam. 2. Mild asymmetric right perinephric stranding, a nonspecific finding. This could be correlated with urinalysis. 3. Cirrhotic liver with collaterals, unchanged. 4. No bowel obstruction. ACT 112: Negative or not required by law. Electronically signed by: Graeme Mike M.D. 03/21/2022 1:[address] 03/21/22 12:13 CT cervical spine wo con CLINICAL HISTORY: Trauma TECHNIQUE: Multidetector row helical CT of the cervical spine was performed without administration of intravenous contrast. Coronal and sagittal ref ormations were obtained. Automated dose lowering techniques and/or adjustment according to patient size were utilized for this exam. Comparison: Comparison is made to CTA neck 10/06/2019 FINDINGS: No acute fractures or subluxations are identified. Degenerative changes are seen including extensive osteophyte formation. The alignment is normal. Soft tissues are unremarkable. IMPRESSION: Degenerative changes without evidence of acute fracture. ACT 112: Negative or not required by law. Electronically signed by: Paul Malcolm M.D. 03/21/2022 1:[address] 03/21/22 12:13 CT chest diagnostic wo con CT DOSE: HISTORY: Fall. TECHNIQUE: Multiaxial CT images of the chest were performed without contrast. A dose lowering technique was utilized adhering to the principles of ALARA. COMPARISON: Chest CTA 11/28/2021. FINDINGS: There are old, healed bilateral rib fractures and an old, healed sternal fracture. No acute fractures identified within the chest. No pneumothorax. No pleural effusions. The central airways are patent. Mild dependent changes seen within the lungs posteriorly. Otherwise, no focal lung consolidations identified. The abdominal structures will be reported on the same day abdomen and pelvis CT. Nodular contour to the liver consistent with cirrhosis. Stable mild pericardial lymphadenopathy. No mediastinal hematoma. No hilar lymphadenopathy. Normal caliber thoracic aorta. The heart remains borderline enlarged. Normal esophagus. IMPRESSION: 1. No acute traumatic process within the chest. 2. Old, healed fractures as described above. 3. Cirrhotic liver and mild pericardial lymphadenopathy, unchanged. ACT 112: Negative or not required by law. Electronically signed by: Randy Cardoso M.D. 03/21/2022 1:[address] 03/21/22 12:13 CT head/brain wo con CLINICAL HISTORY: Trauma Technique: Contiguous axial CT images of the head were acquired from the base of the skull to the vertex without intravenous contrast administration. Images were viewed in brain, subdural and bone windows. Automated dose lowering techniques and/or adjustment according to patient size were utilized for this exam. Comparison: Comparison is made to CT head 01/28/2021 Findings: The ventricles, basal cisterns, and cerebral sulci are normal. There is no acute intracranial hemorrhage or evidence of acute territorial infarction. Neither mass effect, shift of the midline structures, nor abnormal extra-axial fluid collections are shown. Imaged portions of the paranasal sinuses and mastoid air cells are clear. The orbits appear normal. There are no acute fractures of the calvaria or scalp swelling. Impression: No acute intracranial hemorrhage, no evidence of acute territorial infarction or other acute intracranial disease process. ACT 112: Negative or not required by law. Electronically signed by: Paul Malcolm M.D. 03/21/2022 1:16 PM Hospital Course (1) Falls: - Suspect etiology of fall was secondary to infectious source - D/t h/o falls, previously thought to be presyncope due to an underlying arrhythmia. Has a loop recorder device. Cardio consulted. * Seen by Dr. Noriega, mildly elevated troponin felt to represent supply-demand mismatch and not ACS * Did not feel fall was cardiogenic in etiology - Will have PT and OT work with patient while she is here. - Anticipate pt will need additional support upon d/c, daughters are both willing to have her stay with them and have home pt/ot, don't seem interested in acute rehab (2) UTI (urinary tract infection): with associated fall and leukocytosis- met sepsis criteria with +UA, leukocytosis, tachycardia - Urine culture and blood cultures ordered, final pending - Empirically on Rocephin - Received IVF d/t mild rhabdo - WBC downtrending, afebrile, prelim urine cx GNR - Today will be day #3 of Rocephin, would treat for total of 5 days thus would convert to Cefdinir x 2 more days (3) Rhabdomyolysis: - CK 2000, Cr 1.26, baseline < 1. - Unknown how long patient was down on the ground. - 500 cc given in ED, will give additional LR's at 150 cc/hour x2 L. - Recheck BMP and CK in AM. - CK improved to 814, fluids capped, renal fxn normalized (4) TELMA (acute kidney injury): - Secondary to rhabdo. Has not been taking any NSAIDs for pain, losartan has been held for at least 1 month. - RESOLVED with IVF, fluids stopped (5) Elevated troponin: - Troponin elevated to 227, patient without any chest pain, palpitation, shortness of breath, no anginal equivalents. - She does have history of arrhytmia, see 'afib' below; prolonged QT, LVH. Has a loop recording device. - Has followed with Dr. Hewitt in the past, last note from August. - EKG shows sinus tachycardia with PVCs, no ST segment or T wave changes. - Secondary to supply-demand mismatch and not acs, appreciate cardiology input - Echo ordered/completed, other than now mild pulmonary htn no significant change from echo in November 2021 (6) Paroxysmal atrial fibrillation: - History of, with a loop recorder. Per EP note from August, the rhythms identified as A. fib are felt to more likely be sinus rhythm with premature atrial and ventriuclar beats. - Determined not to need chronic anticoagulation. (7) Type 2 diabetes mellitus: - Diet controlled. - Glucose 172 on BMP. - Will order Accu-Cheks with SSI and an A1c to get a sense of patients glucose range (8) Hypertension: - Patient was significantly hypertensive on last admission in November, and again today is presenting with SBP 200s. She was discharged on losartan in November, however BP has been 120s/70s at PCP appointment, therefore was determined she does not need losartan. - 5 mg amlodipine given in ED given high BP, headache. - Will order as needed medications for elevated BP while she is admitted. BP may be elevated partially in the setting of pain. It is unusual that she presents with significantly elevated BPs in the hospital, however seems to be very well controlled in the outpatient setting. (9) Asthma: - Albuterol inhaler as needed. - Has been coughing the past few days, but no shortness of breath or sputum production. No evidence of pneumonia on imaging. - Supportive care. (10) Hypothyroid: - Continue Synthroid. (11) Osteoporosis: - Has declined Fosamax and repeat DEXA in the past. (12) Dyslipidemia: - Diet controlled. Patient has a strong desire to minimize pill burden. Plan Patient is medically and hemodynamically stable for discharge home in the care of her daughter, Niurka, today. Will set up home health for home PT/OT and SN. Above plan of care has been d/w Dr. Carlos Alberto Batista who has also seen and evaluated this patient prior to discharge and agrees with aforementioned. Total Time Total Time Spent Total Time Spent (In Minutes): >30 minutes Discharge Plan Discharge Items Patient Disposition: Home - Self-Care Reason For Visit: FALL, RHABDO Discharge Diagnosis: fall, weakness, urinary tract infection Activity: Resume your previous activity Non-emergency contact: Primary Care Provider Call non-emergency contact if: you have any medication questions and your symptoms worsen Follow-up/Referrals: Natasha Javed DO [Primary Care Provider] - Diet: Carb Consistent or DM2 Addtl Attending Provider Instructions: You were hospitalized due to generalized weakness after being found down in your home after sustaining a fall. You were found to have muscle breakdown which is termed "rhabdomyolysis" due to being on the ground for an unknown period of time. Thankfully, you responded well to the IV fluids that were given. In addition, you were found to have a urinary tract infection and have been treated with a total of 3 doses of IV antibiotics. You will be discharged home on 2 more days of oral antibiotics. Your next dose is due on 03/24/22 in the morning, take with food. The antibiotic is called Cefdinir. The dose is 300mg, one tablet in the morning and one tablet in the evening. Please complete the course of this medication and do not leave any pills left over. You were seen by physical and occupational therapy during your stay. It was decided that you would go to stay with your daughter for a bit and we will arrange home health services until you feel that your strength has improved well enough for you to return home. Please contact your primary care provider on Saturday 03/24 to schedule a hospital follow up within 1 week of discharge. Follow In the event that you have any questions that cannot be answered by your primary care provider, please call the nonemergency contact number listed on your discharge paperwork. In the event of a medical emergency, call 911. Pending Studies at Discharge: No Stand-Alone Forms: My [facility], Smoking Cessation Medications and DC Order Prescriptions: New cefdinir 300 mg capsule 300 mg PO BID Qty: 4 0RF Continued albuterol sulfate [Proventil HFA] 90 mcg/actuation HFA aerosol inhaler 1 - 2 puffs INH Q4H PRN (Reason: shortness of breath) levothyroxine [Synthroid] 75 mcg tablet 75 mcg PO QAM Qty: 90 2RF Rx Instructions: brand name only Discontinued losartan 100 mg tablet 100 mg PO DAILY Qty: 30 11RF Discharge Orders: Discharge Order (Routine); Ordered 03/23/22 Ordered By: Renata Ivy Admission Data Admit Date/Time: 03/21/22 13:51 Attending Provider: Carlos Alberto Batista Admit Provider: Ramone Ortiz Primary Care Provider: Natasha Javed Other Providers: Matt Hewitt Other Interventions: Discharge Summary Assessment (RN) Last Done: 03/23/22 15:13 Supervising Physician Co-Signing Physician Notes I supervised Renata Ivy PA-C on the care of this patient. I interviewed and examined the patient independently of her. The plan is as written in her note except for any following changes/exceptions: None Doing well today. Feeling much better after treatment of her UTI. Feels at her baseline, and ready for discharge. Had an accident at [facility], but again, thinks she is doing well and ready for discharge. Finish oral abx course with cefdinir (E. coli sensitive). 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 The encounter with the patient was in whole, or in part, for the following medical condition, which is the primary reason for home health care (list med ical condition): I certify that, based on my findings, the following services are medically necessary home health services: My clinical findings support the need for the above services because: Further, I certify that my clinical findings support that this patient is homebound (i.e. absences from home require considerable and taxing effort and are for medical reasons or cheondoism services or infrequently or of short duration when for other reasons) because: Certification for Home Health Services: Based on the above findings, I certify that this patient is confined to the home and needs intermittent mcc care, physical therapy and/or speech the rapy or continues to need occupational therapy. The patient is under my care, and I have initiated the establishment of the plan of care. This patient will be followed by a physician who will periodically review the plan of care.
[2022-03-23] MEDS ORDERED: cefTRIAXone SODIUM 2,000 MG in DEXTROSE 5% 50 ML IV SCH (14:00)
--- NOTE | 2022-04-04 07:36 | Coding Query ---
A supporting diagnosis is required for the test/procedure performed on this patient in order for us to be reimbursed by the patient's insurance. Please provide a supporting diagnosis for the following test/procedure listed below next to the test name along with your signature. *If there is no additional diagnosis for this patient that would support the following test/procedure please document that below next to the test/procedure. Test(s)/Procedure(s) that require a supporting diagnosis: * 61124 GI GASTROINTESTINAL PANEL DIAGNOSIS: diarrhea DATE OF SERVICE: 03/21/22 Provider Signature: Belen Yusuf PA-C Date: 04/04/22 Thank you [facility] Information Management Once completed, please kindly fax back to [phone] For questions please call [phone] [facility]
== END 2022-03-23 16:49 | disposition home or self-care (01) ==
LOC: ED 11:50 → SUATTDRO 13:51 → INTOOBSV 13:51 → 2W 13:51

== ENCOUNTER 2022-05-11 15:08 | Observation (INO) ==
--- NOTE | 2022-05-11 16:06 | XRay Report ---
XR chest 1V portable HISTORY: Dyspnea COMPARISON: Chest 11/28/2021. FINDINGS: The lungs are clear. Cardiac silhouette is normal in size. No pleural effusions. No pneumot horax. Prior cholecystectomy. IMPRESSION: No acute process. ACT 112: Negative or not required by law. Electronically signed by: Randy Cardoso M.D. 05/11/2022 4:04 PM
[2022-05-11] MEDS ORDERED: HYDROcodone/HOMATROPINE SYRUP 5MG/1.5MG 5ML UDP PO STA (16:13)
[2022-05-11] MEDS ORDERED: methylPREDNISolone 125 MG/2 ML VIAL IV STA (16:13)
[2022-05-11] MEDS ORDERED: ALBUT/IPRATROP 3MG/0.5MG NEB 3 ML VIAL NEB STA (16:13)
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
[2022-05-11 16:54] LABS: Adenovirus PCR Not Detected (NotDetected); Bordetella parapertussis PCR Not Detected (NotDetected); Bordetella pertussis PCR Not Detected (NotDetected); Chlamydia pneumoniae PCR Not Detected (NotDetected); Coronavirus 229E PCR Not Detected (NotDetected); Coronavirus HKU1 PCR Not Detected (NotDetected); Coronavirus NL63 PCR Not Detected (NotDetected); Coronavirus OC43PCR Not Detected (NotDetected); Human Metapneumovirus PCR Not Detected (NotDetected); Influenza A PCR Not Detected (NotDetected); Influenza B PCR Not Detected (NotDetected); Mycoplasma pneumoniae PCR Not Detected (NotDetected); Parainfluenza Virus 1 PCR Not Detected (NotDetected); Parainfluenza Virus 2 PCR Not Detected (NotDetected); Parainfluenza Virus 3 PCR Not Detected (NotDetected); Parainfluenza Virus 4 PCR Not Detected (NotDetected); Respiratory Syncytial VirusPCR Not Detected (NotDetected); Rhinovirus/Enterovirus PCR Not Detected (NotDetected)
[2022-05-11 16:57] LABS: Coronavirus CoV-2 (COVID19)PCR DETECTED (NotDetected)
[2022-05-11 17:04] LABS: Hematocrit (blood only) 37.1 % (34.1-44.9); Hemoglobin 12.7 g/dl (12.0-16.0); Mean Corpuscular Hemoglobin 33.8 pg (25.0-34.0); Mean Corpuscular Hgb Conc 34.2 g/dL (32.0-36.0); Mean Corpuscular Volume 98.7 fL (80.0-100.0); Mean Platelet Volume 10.4 fL (9.4-12.3); Platelet Count 246 K/uL (130-400); RDW Coefficient of Variation 14.3 % (11.5-14.5); RDW Standard Deviation 51.8 fL (36.4-46.3); Red Blood Count 3.76 M/uL (3.93-5.22); White Blood Count 10.83 K/ul (4.8-10.8)
[2022-05-11 17:26] LABS: Albumin Globulin Ratio 0.9 (0.9-2); Albumin Level 2.8 gm/dl (3.4-5.0); Bilirubin,Total 1.4 mg/dl (0.2-1.0); Calcium 8.1 mg/dl (8.5-10.1); Creatinine Clr Calc Pharmacy 82.6 ml/min; Est GFR (African American) 99.7 ml/min; Globulin 3.2 gm/dl (2.5-4.0); Magnesium 1.7 mg/dl (1.7-2.4); Potassium 3.3 mmol/L (3.5-5.1)
[2022-05-11 17:37] LABS: Basophils # (auto) 0.04 K/uL (0-0.2); Basophils % (auto) 0.4 %; Eosinophils # (auto) 0.14 K/uL (0-0.50); Eosinophils % (auto) 1.3 %; Immature Granulocytes # (auto) 0.04 K/uL (0.00-0.02); Immature Granulocytes % (auto) 0.4 %; Lymphocytes # (auto) 5.92 K/uL (1.2-3.4); Lymphocytes % (auto) 54.7 %; Monocytes # (auto) 0.81 K/uL (0.24-0.82); Monocytes % (auto) 7.5 %; Neutrophils # (auto) 3.88 K/uL (1.4-6.5); Neutrophils % (auto) 35.7 %
[2022-05-11 17:41] LABS: Troponin I High Sensitivity 365.1 pg/ml (0-14)
--- NOTE | 2022-05-11 18:05 | History & Physical Report ---
Date of Service May 11, 2022 Assessment & Plan (1) COVID-19: Plan: Diagnosed with COVID-19 about 5 days ago. Patient still in the window for remdesivir she is agreeable to having the treatment instituted. Patient has risk factors of age diabetes she is not hypoxic and does not qualify for steroids for her COVID. She will complete an outpatient prednisone tapering course being on oral prednisone at this time. She does not have pneumonia on chest x-ray Mild elevation of her transaminases will be following remdesivir With her wheezing she will be on inhaled medications of albuterol and Atrovent Should be on antitussive medications and a mucolytic. (2) Elevated troponin: Plan: Patient had elevated troponin during her hospital admission March 29 echocardiogram that time showed mild pulmonary hypertension but no regional wall motion abnormalities. She is a history of paroxysmal atrial fibrillation noted per loop recorder sees Dr. Alvarado however most recently her rhythm was felt to be more sinus rhythm with premature atrial contractions She missed her last appointment that her Jenny during her last hospitalization she is her next appointment tomorrow May 12 subsequently we will try to reach out to Dr. Alvarado to see if he wishes to curbside or have a formal consultation during this hospital stay although is not related to her loop recorder issue (3) Elevated LFTs: Plan: Patient has history of portal vein thrombosis in the past her transaminases are only mildly elevated today in the facility may be from her COVID infection Family states in the past her portal vein thrombosis was related to liver resection which was benign and this was many years ago without issues of recurrence (4) Hypothyroid: Plan: Patient continue on Synthroid therapy TSH checked in March 29 was normal (5) Type 2 diabetes mellitus: Plan: In the past the patient has denied she had diabetes is diet controlled if her glucoses become significantly elevated with steroid use may consider coverage. At this point time we will just check morning chemistry panels for glucose control. Plan Patient will be on DVT prevention with Lovenox 30 every 12 Patient is a full code. During admission March she required PT OT evaluation this will be redone once the patient's acute medical problems are quiescent History of Present Illness Primary Care Provider: Estrella Rod PA-C 76-year-old female presents to the emergency department with shortness of breath and intractable coughing. The patient is ill for about 5 days and she previously was diagnosed with COVID-19 as an outpatient. Daughter and other family members are also diagnosed with COVID this week. Patient been having fevers chills nasal congestion myalgias and wheezing. Patient has been on prednisone as an outpatient but without improvement. Patient has a history of diabetes controlled by diet. In the emergency department she is elevation of her troponin to 365 without acute changes on her EKG. her troponin was also elevated during an admission in March felt to be demand ischemia she typically follows with Dr. Alvarado and has a loop recorder in for atrial arrhythmia Patient has lost her taste has not had diarrhea she is agreeable to institution of remdesivir Allergies Allergy/AdvReac Type Severity Reaction Status Date / Time Sulfa (Sulfonamide Allergy Intermediate Hives Verified 05/11/22 18:31 Antibiotics) adhesive Allergy Mild "rips skin Verified 05/11/22 18:31 off" hydroxychloroquine Allergy Mild vomiting Verified 05/11/22 18:31 lisinopril Allergy Mild Cough Verified 05/11/22 18:31 Iodinated Contrast Media Allergy Flushing Verified 05/11/22 18:31 Home Medications Medication Instructions Recorded Confirmed Type albuterol sulfate 90 mcg/actuation 1 - 2 puffs inhalation Q4H PRN 03/06/19 05/11/22 History aerosol inhaler (Proventil HFA) shortness of breath Synthroid 75 mcg tablet 75 mcg PO QAM #90 tabs 02/14/22 05/11/22 Rx (levothyroxine) benzonatate 200 mg capsule 200 mg PO TID PRN cough #30 caps 05/09/22 05/11/22 Rx prednisone 20 mg tablet See Rx Instructions PO .COMPLEX 05/10/22 05/11/22 Rx #30 tabs Past Med/Surg History Medical History Asthma allergy induced--inhaler prn Chronic back pain Degenerative disc disease Dizziness Dyslipidemia Elevated troponin Gait disturbance Generalized osteoarthritis of multiple sites History of colon polyps Hyperplastic colon polyp Hypertension Hypothyroidism [place] [facility] [place]) Nausea and vomiting after administration of anesthetic agent Osteoarthritis Osteoporosis Physical deconditioning Radial head fracture Rib fractures Shortness of breath on exertion Spinal stenosis Status post placement of implantable loop recorder Syncope Vitamin B12 deficiency Vitamin D deficiency Surgical History History of ankle surgery right History of arthroscopy of left knee History of arthroscopy of right knee History of bilateral cataract extraction History of dilatation and curettage x2 History of lumbar discectomy History of lumbar spinal fusion History of open reduction and internal fixation (ORIF) procedure right wrist--hardware in place [place] [facility] [place] of total hysterectomy with bilateral salpingo-oophorectomy (BSO) S/P cholecystectomy S/P colonoscopic polypectomy S/P knee surgery bilateral knee replacement. 1997 Dr. Michael Family History Mother Colon cancer Ovarian cancer Diabetes Type 2 diabetes mellitus Acute myocardial infarction Father Congestive heart failure Lung cancer Sister Type 2 diabetes mellitus Arthritis Daughter Arthritis Thyroid disease Family history of reaction to anesthesia nausea/vomiting Son Hypertension Family/Other Arthritis Asthma Unknown VTE (venous thromboembolism) Daughter Family history of reaction to anesthesia nausea/vomiting Social History Smoking Status: Never smoker Tobacco Type: Cigarettes Age Started Using Tobacco: 16; Age Quit Using Tobacco: 16; Second Hand Exposure: No; Hx Alcohol Use: Yes Alcohol type: beer Hx Substance Use: No Preferred Language: Indonesian Communication Ability: Effective Visual Impairment: No Limitations Hearing Ability: Normal Land Leasing Information Clerk Required: No Beliefs That Will Affect Care: None marital status: / Current Living Situation: Alone Current Living Situation Comment: grandson other: is ; 3 children Feels Safe at Home: Yes Childhood Exposure to Second-Hand Smoke: Yes Seatbelt Use: always Sunscreen Use: Yes Assistive Devices: None Review of Systems Review of Systems: Mild distress and fatigue no headache, no visual changes no speech or swallowing issues has had altered sensation no chest pain, pressure or palpitations Dyspnea on exertion with unremitting cough and audible wheezes no abdominal pain, nausea or vomiting, patient denies diarrhea no dysuria, hematuria or frequency no focal joint pain or swelling no back pain, CVA tenderness or radicular pain no bruising, bleeding or rashes no focal signs of weakness or numbness or altered sensation no complaints of anxiety or depression.. Physical Exam Physical Exam: The patient appeared well nourished and normally developed. Vital signs as documented. Head exam is normocephalic atraumatic Oropharynx is erythematous without exudates Right TM has cerumen left TM has effusion behind the eardrum Neck is without JVD, lymphadenopathy, thyromegaly, or carotid bruits. Lungs are coarse breath sounds without focal loss or wheeze Cardiac exam, Rhythm is regular.. No murmurs, rubs or gallops. Abdominal exam reveals normal bowel sounds, soft non tender, no masses Extremities are nonedematous and both pedal pulses are present Neurologic exam is alert and oriented, no focal loss of strength or sensation Skin is without bruises or rashes Psychologically is without concerns for anxiety or depression.. Results & Data Results & Data ([facility]) Vital Signs (Past 12 Hours) Vital Signs Temp Pulse Pulse Resp BP BP Pulse Ox 05/11/22 17:40 81 19 95 05/11/22 17:30 83 17 96 05/11/22 17:20 77 16 93 05/11/22 17:10 89 15 95 05/11/22 17:00 77 15 100 05/11/22 16:50 75 18 100 05/11/22 16:40 78 21 98 05/11/22 16:30 78 19 92 05/11/22 16:20 68 21 99 05/11/22 16:10 77 15 99 05/11/22 16:00 79 17 98 05/11/22 16:00 171/146 H 05/11/22 15:50 77 18 99 05/11/22 15:40 75 22 100 05/11/22 15:30 76 14 99 05/11/22 15:26 75 17 99 05/11/22 16:52 75 20 132/70 99 05/11/22 15:45 73 22 97 05/11/22 15:40 70 22 97 05/11/22 15:40 05/11/22 15:40 05/11/22 15:10 97.0 F L 83 24 168/91 H 97 O2 Del Method 05/11/22 17:40 05/11/22 17:30 05/11/22 17:20 05/11/22 17:10 05/11/22 17:00 05/11/22 16:50 05/11/22 16:40 05/11/22 16:30 05/11/22 16:20 05/11/22 16:10 05/11/22 16:00 05/11/22 16:00 05/11/22 15:50 05/11/22 15:40 05/11/22 15:30 05/11/22 15:26 05/11/22 16:52 Room Air 05/11/22 15:45 Room Air 05/11/22 15:40 Room Air 05/11/22 15:40 Room Air 05/11/22 15:40 Room Air 05/11/22 15:10 Room Air Diagnostic Findings Chest X-Ray 05/11/22 15:33 XR chest 1V portable HISTORY: Dyspnea COMPARISON: Chest 11/28/2021. FINDINGS: The lungs are clear. Cardiac silhouette is normal in size. No pleural effusions. No pneumothorax. Prior cholecystectomy. IMPRESSION: No acute process. Electronically signed by: Randy Cardoso M.D. 05/11/2022 4:04 PM ECG Additional Comments: EKG shows normal sinus rhythm without acute ST or T wave changes PG Care Time/CCT Total # of Minutes Spent Total Time Spent with Patient: Total time spent is greater than 50% in coordination of care (as documented) at patient's floor/unit and/or counseling patient: Coding Level of Care Code 32287 Initial Inpt Care Lvl 3 Diagnoses COVID-19 U07.1 Elevated troponin R77.8 Elevated LFTs R79.89 Hypothyroid E03.9 Hypothyroidism type: acquired Type 2 diabetes mellitus E11.9 Diabetes mellitus complication status: without complication Diabetes mellitus intermediate project manager insulin use: without intermediate project manager use (1) Type 2 diabetes mellitus Diabetes mellitus complication status: without complication Diabetes mellitus intermediate project manager insulin use: without intermediate project manager use Qualified Code(s): E11.9 - Type 2 diabetes mellitus without complications (2) Hypothyroid Hypothyroidism type: acquired Qualified Code(s): E03.9 - Hypothyroidism, unspecified
[2022-05-11] MEDS ORDERED: POTASSIUM CHLORIDE CRTAB 20 MEQ TABCR PO STA (20:06)
[2022-05-11] MEDS ORDERED: REMDESIVIR 200 MG in SODIUM CHLORIDE 0.9% 210 ML IV STA (20:06)
[2022-05-11] MEDS ORDERED: ACETAMINOPHEN 325 MG TAB PO PRN (20:06)
[2022-05-11] MEDS ORDERED: NITROGLYCERIN SL 0.4 MG/TAB TAB SL PRN (20:06)
[2022-05-11] MEDS ORDERED: PROMETHAZINE HCL 12.5 MG/10 ML UDP PO PRN (20:06)
[2022-05-11] MEDS ORDERED: ALBUTEROL 0.083% NEBU SOLN 3 ML VIAL NEB PRN (20:06)
[2022-05-11] MEDS ORDERED: MAGNESIUM SULFATE / D5W 1 GM/100 ML BAG IV ONE (20:06)
[2022-05-11] MEDS ORDERED: ALUMINUM/MAGNESIUM SUSP 30 ML UDC PO PRN (20:06)
[2022-05-11] MEDS ORDERED: ONDANSETRON INJ 2 MG/ML 2 ML VIAL IV PRN (20:06)
[2022-05-11] MEDS: ASPIRIN 81 MG ECTAB PO SCH (20:42)
[2022-05-11] MEDS: guaiFENesin 600 MG TABCR PO SCH (20:42)
[2022-05-11] MEDS: CARBAMIDE PEROXIDE 6.5% 15 ML BTL OTR SCH (20:54)
[2022-05-11] MEDS: ENOXAPARIN INJ 30 MG/0.3 ML SYR SQ SCH (20:54)
[2022-05-11] MEDS ORDERED: IPRATROPIUM BROMIDE/ALBUTEROL respimat INH INH SCH (21:00)
[2022-05-12 04:18] LABS: Appearance Urine Clear (Clear); Bilirubin Urine Negative (Negative); Blood Urine Negative (Negative); Color Urine Yellow; Glucose Urine UA Negative (Negative); Ketones Urine Negative (Negative); Leukocyte Esterase Urine Negative (Negative); Nitrite Urine Negative (Negative); Protein Urine Negative (Negative); Specific Gravity Urine 1.007 (1.000-1.030); Urobilinogen Urine Negative (Negative); pH Urine 6.5 (4.5-7.5)
[2022-05-12] MEDS: LEVOTHYROXINE SODIUM 75 MCG TABLET PO SCH (05:36)
[2022-05-12] MEDS: Albuterol HFA 8 GM Inhaler (Combivent Respimat P&T Subs) INH SCH ×2 (07:46→10:57)
[2022-05-12] MEDS: Ipratropium HFA Inhaler (Combivent Respimat P&T Subs) INH SCH ×2 (07:46→10:57)
[2022-05-12 08:08] LABS: BUN Creatinine Ratio 8.9 (10-20); Calcium 7.8 mg/dl (8.5-10.1); Creatinine Clr Calc Pharmacy 97.6 ml/min; Est GFR (African American) 105.7 ml/min; Est GFR (Non-African American) 91.2 ml/min; Potassium 3.9 mmol/L (3.5-5.1)
[2022-05-12] MEDS: guaiFENesin 600 MG TABCR PO SCH ×2 (08:16→21:59)
[2022-05-12] MEDS: predniSONE 20 MG TAB PO SCH (08:17)
[2022-05-12] MEDS: ASPIRIN 81 MG ECTAB PO SCH (08:17)
[2022-05-12] MEDS: ENOXAPARIN INJ 30 MG/0.3 ML SYR SQ SCH ×2 (08:17→22:00)
[2022-05-12] MEDS: CARBAMIDE PEROXIDE 6.5% 15 ML BTL OTR SCH ×2 (08:18→20:05)
[2022-05-12] MEDS ORDERED: POTASSIUM CHLORIDE CRTAB 20 MEQ TABCR PO SCH (09:00)
[2022-05-12 11:46] LABS: Troponin I High Sensitivity 321.7 pg/ml (0-14)
[2022-05-12 11:48] LABS: C Reactive Protein < 0.50 mg/dl (0-0.5)
[2022-05-12] MEDS ORDERED: ALBUTEROL HFA 8 GM INHALER INH PRN (13:08)
[2022-05-12] MEDS ORDERED: IPRATROPIUM BROMIDE HFA INHALER INH PRN (13:09)
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
--- NOTE | 2022-05-12 16:49 | Electrocardiogram Report ---
Test Reason : Blood Pressure : / mmHG Vent. Rate : 074 BPM Atrial Rate : 074 BPM P-R Int : 134 ms QRS Dur : 080 ms QT Int : 422 ms P-R-T Axes : -19 010 061 degrees QTc Int : 468 ms Poor data quality, interpretation may be adversely affected Normal sinus rhythm Nonspecific ST and T wave abnormality Abnormal ECG When compared with ECG of 21-MAR-2022 21:47, Premature atrial complexes are no longer Present Confirmed by Kraig Noriega ([id number]) on 05/12/2022 4:48:53 PM Referred By: Confirmed By:Kraig Noriega
--- NOTE | 2022-05-12 17:07 | Electrocardiogram Report ---
Test Reason : Blood Pressure : / mmHG Vent. Rate : 083 BPM Atrial Rate : 092 BPM P-R Int : 000 ms QRS Dur : 078 ms QT Int : 432 ms P-R-T Axes : 062 034 044 degrees QTc Int : 507 ms Normal sinus rhythm with frequent Premature atrial complexes Prolonged QT Abnormal ECG When compared with ECG of 11-MAY-2022 15:37, (unconfirmed) No significant change Confirmed by Kraig Noriega ([id number]) on 05/12/2022 5:06:45 PM Referred By: REFERRED SELF Confirmed By:Kraig Noriega
[2022-05-12] MEDS ORDERED: REMDESIVIR 100 MG in SODIUM CHLORIDE 0.9% 230 ML IV SCH (20:00)
--- NOTE | 2022-05-12 22:01 | Hospitalist Progress Note ---
Date of Service May 12, 2022 Assessment & Plan (1) COVID-19: Plan: Diagnosed with COVID-19 about 5 days ago. Patient still in the window for remdesivir she is agreeable to having the treatment instituted. Patient has risk factors of age diabetes she is not hypoxic and does not qualify for steroids for her COVID. She will complete an outpatient prednisone tapering course being on oral prednisone at this time. She does not have pneumonia on chest x-ray Mild elevation of her transaminases will be following remdesivir With her wheezing she will be on inhaled medications of albuterol and Atrovent Should be on antitussive medications and a mucolytic. On 05/12, no longer having wheezing. Patient still feels somewhat SOB. will continue to monitor inflammatory markers, anticipate discharge in AM if she continues to improve. (2) Elevated troponin: Plan: Patient had elevated troponin during her hospital admission March 29 echocardiogram that time showed mild pulmonary hypertension but no regional wall motion abnormalities. She is a history of paroxysmal atrial fibrillation noted per loop recorder sees Dr. Alvarado however most recently her rhythm was felt to be more sinus rhythm with premature atrial contractions She missed her last appointment that her Jenny during her last hospitalization she is her next appointment tomorrow May 12 subsequently we will try to reach out to Dr. Alvarado to see if he wishes to curbside or have a formal consultation during this hospital stay although is not related to her loop recorder issue (3) Elevated LFTs: Plan: Patient has history of portal vein thrombosis in the past her transaminases are only mildly elevated today in the facility may be from her COVID infection Family states in the past her portal vein thrombosis was related to liver resection which was benign and this was many years ago without issues of recurrence (4) Hypothyroid: Plan: Patient continue on Synthroid therapy TSH checked in March 29 was normal (5) Type 2 diabetes mellitus: Plan: In the past the patient has denied she had diabetes is diet controlled if her glucoses become significantly elevated with steroid use may consider coverage. At this point time we will just check morning chemistry panels for glucose control. Plan Patient will be on DVT prevention with Lovenox 30 every 12 Patient is a full code. During admission March she required PT OT evaluation this will be redone once the patient's acute medical problems are quiescent Admission and Anticipated Discharge Date Admission Date: May 11, 2022 Subjective Patient reports doing beter, she still feels SOB and was having a cough. Review of Systems Review of Systems: All systems reviewed & are unremarkable except as noted in HPI & below Physical Exam Physical Exam: The patient appeared well nourished and normally developed. Vital signs as documented. Head exam is normocephalic atraumatic Oropharynx is erythematous without exudates Right TM has cerumen left TM has effusion behind the eardrum Neck is without JVD, lymphadenopathy, thyromegaly, or carotid bruits. Lungs are coarse breath sounds without focal loss or wheeze Cardiac exam, Rhythm is regular.. No murmurs, rubs or gallops. Abdominal exam reveals normal bowel sounds, soft non tender, no masses Extremities are nonedematous and both pedal pulses are present Neurologic exam is alert and oriented, no focal loss of strength or sensation Skin is without bruises or rashes Psychologically is without concerns for anxiety or depression.. Results & Data Results & Data ([facility]) Vital Signs (Past 12 Hours) Vital Signs Temp Pulse Resp BP Pulse Ox Pulse Ox O2 Del Method 05/12/22 20:06 97 05/12/22 19:03 37.0 C 89 16 128/66 97 Room Air 05/12/22 15:15 36.5 C 83 22 137/83 97 Room Air 05/12/22 11:27 36.4 C L 91 H 24 164/78 H 97 Room Air 05/12/22 10:58 83 18 96 Room Air O2 Del Method 05/12/22 20:06 Room Air 05/12/22 19:03 05/12/22 15:15 05/12/22 11:27 05/12/22 10:58 PG Care Time/CCT Total # of Minutes Spent Total Time Spent with Patient: Total time spent is greater than 50% in coordination of care (as documented) at patient's floor/unit and/or counseling patient: Coding Level of Care Code 40185 Subseq Hosp Care Lvl 2 Diagnoses COVID-19 U07.1 Elevated troponin R77.8 Elevated LFTs R79.89 Hypothyroid E03.9 Hypothyroidism type: acquired Type 2 diabetes mellitus E11.9 Diabetes mellitus complication status: without complication Diabetes mellitus rat exterminator insulin use: without long-term use Time Spent (min) 25 (1) Type 2 diabetes mellitus Diabetes mellitus complication status: without complication Diabetes mellitus long-term insulin use: without long-term use Qualified Code(s): E11.9 - Type 2 diabetes mellitus without complications (2) Hypothyroid Hypothyroidism type: acquired Qualified Code(s): E03.9 - Hypothyroidism, unspecified
[2022-05-13] MEDS: LEVOTHYROXINE SODIUM 75 MCG TABLET PO SCH (05:48)
[2022-05-13 08:07] LABS: Hematocrit (blood only) 35.1 % (34.1-44.9); Hemoglobin 11.8 g/dl (12.0-16.0); Mean Corpuscular Hemoglobin 33.7 pg (25.0-34.0); Mean Corpuscular Hgb Conc 33.6 g/dL (32.0-36.0); Mean Corpuscular Volume 100.3 fL (80.0-100.0); Mean Platelet Volume 10.1 fL (9.4-12.3); Platelet Count 281 K/uL (130-400); RDW Coefficient of Variation 14.6 % (11.5-14.5); RDW Standard Deviation 53.5 fL (36.4-46.3)
[2022-05-13 08:31] LABS: Alanine Aminotransferase 23 U/L (7-52); Albumin Globulin Ratio 0.8 (0.9-2); Albumin Level 2.5 gm/dl (3.4-5.0); Alkaline Phosphatase 77 U/L (34-104); Anion Gap 3 (3-11); Aspartate Aminotransferase 47 U/L (13-39); BUN Creatinine Ratio 11.1 (10-20); Bilirubin,Total 0.8 mg/dl (0.2-1.0); Blood Urea Nitrogen 7 mg/dl (6-23); C Reactive Protein < 0.50 mg/dl (0-0.5); Calcium 7.9 mg/dl (8.5-10.1); Carbon Dioxide 27 mmol/L (21-32); Chloride 111 mmol/L (98-107); Creatinine Clr Calc Pharmacy 86.8 ml/min; Est GFR (African American) 101.7 ml/min; Est GFR (Non-African American) 87.7 ml/min; Glucose 78 mg/dl (70-99(Fasting)); Magnesium 1.9 mg/dl (1.7-2.4); Potassium 3.7 mmol/L (3.5-5.1); Sodium 141 mmol/L (136-145); Total Protein 5.5 gm/dl (6.0-8.3)
[2022-05-13] MEDS: ASPIRIN 81 MG ECTAB PO SCH (09:54)
[2022-05-13] MEDS: ENOXAPARIN INJ 30 MG/0.3 ML SYR SQ SCH (09:54)
[2022-05-13] MEDS: CARBAMIDE PEROXIDE 6.5% 15 ML BTL OTR SCH (09:54)
[2022-05-13] MEDS: predniSONE 20 MG TAB PO SCH (09:54)
[2022-05-13] MEDS: guaiFENesin 600 MG TABCR PO SCH (09:55)
--- NOTE | 2022-05-13 16:40 | Electrocardiogram Report ---
Test Reason : Blood Pressure : / mmHG Vent. Rate : 085 BPM Atrial Rate : 085 BPM P-R Int : 152 ms QRS Dur : 082 ms QT Int : 404 ms P-R-T Axes : 076 070 054 degrees QTc Int : 480 ms Normal sinus rhythm Normal ECG When compared with ECG of 12-MAY-2022 05:33, Premature atrial complexes are no longer Present Confirmed by Kraig Noriega ([id number]) on 05/13/2022 4:40:00 PM Referred By: REFERRED SELF Confirmed By:Kraig Noriega
--- NOTE | 2022-05-20 12:14 | Discharge Summary ---
Date of Service May 13, 2022 Admission HPI Per Admitting Provider 76-year-old female presents to the emergency department with shortness of breath and intractable coughing. The patient is ill for about 5 days and she previously was diagnosed with COVID-19 as an outpatient. Daughter and other family members are also diagnosed with COVID this week. Patient been having fevers chills nasal congestion myalgias and wheezing. Patient has been on prednisone as an outpatient but without improvement. Patient has a history of diabetes controlled by diet. In the emergency department she is elevation of her troponin to 365 without acute changes on her EKG. her troponin was also elevated during an admission in March felt to be demand ischemia she typically follows with Dr. Alvarado and has a loop recorder in for atrial arrhythmia Patient has lost her taste has not had diarrhea she is agreeable to institution of remdesivir Principal Diagnosis COVID 19 Discharge Exam The patient appeared well nourished and normally developed. Vital signs as documented. Head exam is normocephalic atraumatic Oropharynx is erythematous without exudates Right TM has cerumen left TM has effusion behind the eardrum Neck is without JVD, lymphadenopathy, thyromegaly, or carotid bruits. Lungs are clear Cardiac exam, Rhythm is regular.. No murmurs, rubs or gallops. Abdominal exam reveals normal bowel sounds, soft non tender, no masses Extremities are nonedematous and both pedal pulses are present Neurologic exam is alert and oriented, no focal loss of strength or sensation Skin is without bruises or rashes Psychologically is without concerns for anxiety or depression. Discharge Data Allergies Allergy/AdvReac Type Severity Reaction Status Date / Time Sulfa (Sulfonamide Allergy Intermediate Hives Verified 05/11/22 18:31 Antibiotics) adhesive Allergy Mild "rips skin Verified 05/11/22 18:31 off" hydroxychloroquine Allergy Mild vomiting Verified 05/11/22 18:31 lisinopril Allergy Mild Cough Verified 05/11/22 18:31 Iodinated Contrast Media Allergy Flushing Verified 05/11/22 18:31 Consultations 05/11/22 18:12 ED Decision to Admit Stat 05/12/22 07:58 Consult Cardiology Routine Hospital Course (1) COVID-19: Diagnosed with COVID-19 about 5 days ago. Patient still in the window for remdesivir she is agreeable to having the treatment instituted. Patient has risk factors of age diabetes she is not hypoxic and does not qualify for steroids for her COVID. She will complete an outpatient prednisone tapering course being on oral prednisone at this time. She does not have pneumonia on chest x-ray Mild elevation of her transaminases will be following remdesivir With her wheezing she will be on inhaled medications of albuterol and Atrovent Should be on antitussive medications and a mucolytic. Hospital course: Patient improved with corticosteroids. will continue steroid taper as an outpatient. Patient remained on room air. (2) Elevated troponin: Patient had elevated troponin during her hospital admission March 29 echocardiogram that time showed mild pulmonary hypertension but no regional wall motion abnormalities. She is a history of paroxysmal atrial fibrillation noted per loop recorder sees Dr. Alvarado however most recently her rhythm was felt to be more sinus rhythm with premature atrial contractions She missed her last appointment that her Jenny during her last hospitalization she is her next appointment tomorrow May 12 subsequently we will try to reach out to Dr. Alvarado to see if he wishes to curbside or have a formal consultation during this hospital stay although is not related to her loop recorder issue (3) Elevated LFTs: Patient has history of portal vein thrombosis in the past her transaminases are only mildly elevated today in the facility may be from her COVID infection Family states in the past her portal vein thrombosis was related to liver re section which was benign and this was many years ago without issues of recurrence (4) Hypothyroid: Patient continue on Synthroid therapy TSH checked in March 29 was normal (5) Type 2 diabetes mellitus: In the past the patient has denied she had diabetes is diet controlled if her glucoses become significantly elevated with steroid use may consider coverage. At this point time we will just check morning chemistry panels for glucose control. Plan Patient will be on DVT prevention with Lovenox 30 every 12 Patient is a full code. During admission March she required PT OT evaluation this will be redone once the patient's acute medical problems are quiescent Total Time Total Time Spent Total Time Spent (In Minutes): 35 Discharge Plan Discharge Items Patient Disposition: Home - Self-Care Reason For Visit: METAB ENCEP, ELEV TROP, COVID +, COUGH Discharge Diagnosis: COVID 19 Activity: Resume your previous activity Non-emergency contact: Primary Care Provider Call non-emergency contact if: you have any medication questions Follow-up/Referrals: Estrella Rod PA-C [Primary Care Provider] - 05/23/22 8:15 am Diet: Regular Addtl Attending Provider Instructions: Good afternoon Mrs. Arzola, You were admitted with COVID 19. Thankfully, you did not require any oxygen while you were here. You were seen by cardiology as there was concern over an elevation to your heart protein (troponin), but this was a very minor elevation. No further intervention was required. I will recommend mucinex to help you with your cough. I also ordered a cough suppressant benzonatate which should be only used at night, if your cough is affecting your sleep. But try to limit its use, as coughing helps eliminate the mucous and debris that could be in your lungs. Please only use it if it is affecting your sleep. Best regards, Ankush Brown Pending Studies at Discharge: No Stand-Alone Forms: My [facility], Smoking Cessation Medications and DC Order Prescriptions: New guaifenesin [Mucinex] 600 mg Tablet Extended Release 12hr 600 mg PO Q12 Qty: 20 0RF benzonatate 200 mg capsule 200 mg PO PM PRN (Reason: cough) Qty: 10 0RF Continued benzonatate 200 mg capsule 200 mg PO TID PRN (Reason: cough) Qty: 30 0RF prednisone 20 mg tablet See Rx Instructions PO .COMPLEX Qty: 30 0RF Rx Instructions: 3 tabs PO daily X 5 days, then 2 tabs PO daily X 5 days, then 1 tab PO daily X 5 days, then stop. levothyroxine [Synthroid] 75 mcg tablet 75 mcg PO QAM Qty: 90 2RF Rx Instructions: brand name only albuterol sulfate [Proventil HFA] 90 mcg/actuation HFA aerosol inhaler 1 - 2 puffs INH Q4H PRN (Reason: shortness of breath) Qty: 8.5 0RF Discharge Orders: Discharge Order (Routine); Ordered 05/13/22 Ordered By: Ankush Brown Admission Data Admit Date/Time: 05/11/22 18:16 Attending Provider: Ankush Brown Admit Provider: Aurelio Murrieta Primary Care Provider: Estrella Rod Other Providers: Aurelio Murrieta ; Olu Forbes ; Cortes Rubio ; Kraig Noriega ; Ozzy Nieves ; Matt Hewitt ; Dillan Bailey Jr ; Rashid Heaton ; Melina Burns ; Brigitte Simmons ; Yunior Bee ; Casey Roger ; Fernando Hilario ; Gabriela Chiu ; Alexia Whitmore ; Ky Garcia ; Ant Wallace Henry C. ; Ozzy Cordero V. Other Interventions: Discharge Summary Assessment (RN) Last Done: 05/13/22 14:47 Coding Level of Care Code D/C DAY MANAGEMENT >30 MINS Diagnoses COVID-19 U07.1 Elevated troponin R77.8 Elevated LFTs R79.89 Hypothyroid E03.9 Hypothyroidism type: acquired Type 2 diabetes mellitus E11.9 Diabetes mellitus intermediate accountant insulin use: without senior care use Diabetes mellitus complication status: without complication
== END 2022-05-13 16:03 | disposition home or self-care (01) | DRG 178 ==
LOC: ED 15:08 → SUATTDRO 18:16 → INTOOBSV 18:16 → 2S 18:16
DX: D72.820 Lymphocytosis (symptomatic); U07.1 COVID-19; Z79.890 Hormone replacement therapy; R79.89 Other specified abnormal findings of blood chemistry; E11.9 Type 2 diabetes mellitus without complications; R77.8 Other specified abnormalities of plasma proteins; Z87.891 Personal history of nicotine dependence; Z91.81 History of falling; I24.8 Other forms of acute ischemic heart disease; Z88.8 Allergy status to other drugs, medicaments and biological substances; Z91.041 Radiographic dye allergy status; E03.9 Hypothyroidism, unspecified; Z79.899 Other long term (current) drug therapy; Z79.51 Long term (current) use of inhaled steroids; Z88.2 Allergy status to sulfonamides

== ENCOUNTER 2024-03-10 15:50 | Observation (INO) ==
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
[2024-03-10] MEDS: ONDANSETRON INJ 2 MG/ML 2 ML VIAL IV STA (16:26)
[2024-03-10] MEDS: MoRPHine SULFATE 4 MG/ML 1 ML CARP\\VIAL IV PRN (16:26)
[2024-03-10] MEDS: SODIUM CHLORIDE 0.9% 500 ML IV STA (16:26)
[2024-03-10 16:52] LABS: Basophils # (auto) 0.07 K/uL (0.00-0.20); Eosinophils # (auto) 0.51 K/uL (0.00-0.50); Eosinophils % (auto) 7.2 %; Hematocrit (blood only) 39.9 % (37.0-47.0); Hemoglobin 13.7 g/dl (12.0-16.0); Immature Granulocytes # (auto) 0.01 K/uL (0.01-0.20); Immature Granulocytes % (auto) 0.1 %; Lymphocytes # (auto) 2.22 K/uL (1.20-3.40); Lymphocytes % (auto) 31.4 %; Mean Corpuscular Hemoglobin 33.7 pg (25.0-34.0); Mean Corpuscular Hgb Conc 34.3 g/dL (32.0-36.0); Mean Platelet Volume 10.1 fL (9.4-12.4); Monocytes # (auto) 0.64 K/uL (0.11-0.59); Neutrophils # (auto) 3.63 K/uL (1.40-6.50); Neutrophils % (auto) 51.3 %; Platelet Count 250 K/uL (130-400); RDW Coefficient of Variation 13.2 % (11.5-14.5); RDW Standard Deviation 47.2 fL (36.4-46.3); Red Blood Count 4.07 M/uL (4.20-5.40); White Blood Count 7.08 K/ul (4.8-10.8)
--- NOTE | 2024-03-10 17:05 | CT Scan Report ---
CT head/brain wo con CLINICAL HISTORY: 78 years-old Female with fall. Acute head trauma status post fall TECHNIQUE: Multiple axial CT images of the head were obtained without contrast. A dose lowering tech nique was utilized adhering to the principles of ALARA. COMPARISON: CT cervical spine of same day, head CT 12/01/2023 FINDINGS: No acute intracranial hemorrhage, midline shift, intracranial mass, hydrocephalus, territorial ischem ia or abnormal extra-axial collection. Involutional changes with chronic microvascular ischemic disea se. The calvarium is intact. The paranasal sinuses, mastoid air cells, and middle ear cavities are clear . IMPRESSION: No acute intracranial abnormality or calvarial fracture. ACT 112: Negative or not required by law. The above report was generated using voice recognition software. It may contain grammatical, syntax o r spelling errors. Electronically signed by: Renny Seaman M.D. 03/10/2024 5:03 PM
[2024-03-10 17:10] LABS: Albumin Globulin Ratio 1.1 (0.9-2); Albumin Level 3.3 gm/dl (3.4-5.0); BUN Creatinine Ratio 11.8 (10-20); Calcium 8.7 mg/dl (8.6-10.3); Creatinine Clr Calc Pharmacy 63.8 ml/min; Globulin 2.9 gm/dl (2.5-4.0); Potassium 4.2 mmol/L (3.5-5.1); Total Protein 6.2 gm/dl (6.0-8.3)
--- NOTE | 2024-03-10 17:18 | CT Scan Report ---
CT OF THE CERVICAL SPINE WITHOUT CONTRAST CLINICAL HISTORY: fall COMPARISON STUDY: Cervical spine CT March 21, 2022. TECHNIQUE: Helical axial images of the cervical spine were obtained without IV contrast. Sagittal a nd coronal reconstructions were viewed. Automated exposure control was utilized for the study. A do se lowering technique was utilized adhering to the principles of ALARA. FINDINGS: Alignment of the cervical spine is anatomic. Vertebral body heights are maintained. No acut e cervical spine fracture or subluxation is present. There is no prevertebral edema. Facet joints are intact. Moderate multilevel facet arthrosis and degenerative disc disease is present. IMPRESSION: No acute cervical spine fracture or subluxation. ACT 112: Negative or not required by law. Electronically signed by: Graeme Mike M.D. 03/10/2024 5:17 PM
--- NOTE | 2024-03-10 17:24 | XRay Report ---
XR chest 1V portable CLINICAL HISTORY: fall COMPARISON STUDY: Chest CT March 21, 2022. Chest radiograph December 01, 2023. FINDINGS: Lung volumes are normal. Lungs are clear. There is no pneumothorax or pleural effusion. Mil d cardiomegaly is unchanged. Electronic device projects over the left chest. Mediastinal contours are normal. There is no evidence for pulmonary edema. IMPRESSION: No acute cardiopulmonary findings. ACT 112: Negative or not required by law. Electronically signed by: Graeme Mike M.D. 03/10/2024 5:23 PM
--- NOTE | 2024-03-10 17:24 | CT Scan Report ---
CT OF THE LUMBAR SPINE CLINICAL HISTORY: fall COMPARISON STUDY: Lumbar spine CT February 03, 2019. Lumbar spine radiograph October 27, 2020. TECHNIQUE: Helical axial images of the lumbar spine were obtained. Sagittal and coronal reconstruct ions were viewed. Automated exposure control was utilized for the study. A dose lowering technique was utilized adhering to the principles of ALARA. FINDINGS: This exam is mildly compromised by artifact. Vertebral body heights are maintained. There a re no lumbar spine fractures. There is severe facet arthrosis and moderate multilevel degenerative di sc disease within the lumbar spine. Paravertebral soft tissues are unremarkable. Sacroiliac joints ar e intact. 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 IMPRESSION: No acute lumbar spine fracture or subluxation. ACT 112: Negative or not required by law. Electronically signed by: Graeme Mike M.D. 03/10/2024 5:22 PM
--- NOTE | 2024-03-10 17:25 | XRay Report ---
XR shoulder RT min 2V routine CLINICAL HISTORY: fall COMPARISON: Chest CT March 21, 2022. FINDINGS: Alignment of the right shoulder is anatomic. There is no acute fracture. There are moderat e degenerative changes within the right shoulder. IMPRESSION: No fracture or dislocation within the right shoulder. ACT 112: Negative or not required by law. Electronically signed by: Graeme Mike M.D. 03/10/2024 5:24 PM
--- NOTE | 2024-03-10 17:27 | XRay Report ---
XR knee RT 1 or 2V routine CLINICAL HISTORY: fall COMPARISON: Right femur radiographs October 06, 2019. FINDINGS: There is an acute nondisplaced periprosthetic fracture involving the medial metaphysis of the right femur. This extends to the femoral component of the right knee arthroplasty. No additional fractures are present. There is a moderate size joint effusion. IMPRESSION: 1. Acute nondisplaced periprosthetic fracture involving the medial metaphysis of the right femur, as described above. 2. Moderate size right knee joint effusion. ACT 112: Negative or not required by law. Electronically signed by: Graeme Mike M.D. 03/10/2024 5:26 PM
--- NOTE | 2024-03-10 17:30 | XRay Report ---
XR hip RT 2V w pelvis CLINICAL HISTORY: fall COMPARISON: Pelvis radiograph October 06, 2019. CT of the abdomen and pelvis March 21, 2022. FINDINGS: There is a moderate amount of stool within the rectum. The sacroiliac joints and symphysis pubis are intact. There are no fractures within the pelvis or hips. IMPRESSION: No fractures within the pelvis or hips. ACT 112: Negative or not required by law. Electronically signed by: Graeme Mike M.D. 03/10/2024 5:29 PM
[2024-03-10 17:44] LABS: Troponin I High Sensitivity 173.7 pg/ml (0-14)
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
[2024-03-10] MEDS ORDERED: traMADol HCL 50 MG TABLET PO PRN (21:19)
[2024-03-10] MEDS: ACETAMINOPHEN 500 MG TAB PO STA (21:42)
[2024-03-11] MEDS: traMADol HCL 50 MG TABLET PO PRN (05:37)
[2024-03-11 07:58] LABS: Basophils # (auto) 0.06 K/uL (0.00-0.20); Basophils % (auto) 0.7 %; Eosinophils % (auto) 2.3 %; Hematocrit (blood only) 39.7 % (37.0-47.0); Immature Granulocytes # (auto) 0.03 K/uL (0.01-0.20); Immature Granulocytes % (auto) 0.3 %; Lymphocytes # (auto) 1.56 K/uL (1.20-3.40); Lymphocytes % (auto) 18.1 %; Mean Corpuscular Hemoglobin 33.2 pg (25.0-34.0); Mean Corpuscular Hgb Conc 32.7 g/dL (32.0-36.0); Mean Corpuscular Volume 101.5 fL (80.0-100.0); Monocytes # (auto) 0.83 K/uL (0.11-0.59); Monocytes % (auto) 9.6 %; Neutrophils # (auto) 5.96 K/uL (1.40-6.50); Platelet Count 228 K/uL (130-400); RDW Coefficient of Variation 13.4 % (11.5-14.5); RDW Standard Deviation 50.2 fL (36.4-46.3); Red Blood Count 3.91 M/uL (4.20-5.40); White Blood Count 8.64 K/ul (4.8-10.8)
[2024-03-11 08:25] LABS: Calcium 8.5 mg/dl (8.6-10.3); Potassium 4.2 mmol/L (3.5-5.1)
[2024-03-11] MEDS: ACETAMINOPHEN 500 MG TAB PO SCH (08:25)
[2024-03-11] MEDS: ENOXAPARIN INJ 40 MG/0.4 ML SYR SQ SCH (08:25)
[2024-03-11] MEDS: LEVOTHYROXINE SODIUM 75 MCG TABLET PO SCH (08:26)
[2024-03-11] MEDS: METOPROLOL SUCC 25MG EXT REL TAB PO SCH (08:26)
[2024-03-11 08:30] LABS: BUN Creatinine Ratio 17.6 (10-20); Creatinine Clr Calc Pharmacy 71.5 ml/min
--- NOTE | 2024-03-11 10:34 | Electrocardiogram Report ---
Test Reason : Blood Pressure : */* mmHG Vent. Rate : 63 BPM Atrial Rate : 63 BPM P-R Int : 160 ms QRS Dur : 76 ms QT Int : 472 ms P-R-T Axes : 56 27 63 degrees QTcB Int : 483 ms Normal sinus rhythm Normal ECG When compared with ECG of 01-Dec-2023 16:00, No significant change was found Confirmed by Casey Roger ([id number]) on 03/11/2024 10:34:41 AM Referred By: REFERRED SELF Confirmed By: Casey Roger
--- NOTE | 2024-03-11 11:28 | Hospitalist Progress Note ---
Date of Service March 11, 2024 Assessment & Plan (1) Marissa-prosthetic fracture around prosthetic knee: Plan: Fracture of the medial condyle of the right femur from falling at home. Previous right total knee arthroplasty hardware is in place. Appreciate orthopedic consultation recommendations. Nonoperative treatment with immobilizer and weightbearing as tolerated and pain control measures. (2) Elevated troponin I level: Plan: Chronic. No chest pain. No acute EKG changes. (3) NSVT (nonsustained ventricular tachycardia): Plan: History of NSVT in the past. Currently stable. Continue current medical management (4) Hypothyroid: Plan: Stable. Continue current medical management Plan Anticipate discharge to [facility] or SNF facility when arrangements are finalized. Admission and Anticipated Discharge Date Admission Date: March 10, 2024 Subjective Alert. No distress. Vital signs are stable. Orthopedic consultation and recommendations appreciated. No operative intervention for the medial condyle fracture of the right femur. Previous right TKA hardware is intact. She will wear a knee immobilizer with weightbearing as tolerated. OT and PT assessments requested. It appears she will need placement. Review of Systems 2 Review of Systems: Constitutionalno fever or chills ENTno blurred vision, no double vision, no epistaxis, no sore throat Respiratoryno cough, no wheezing, no shortness of breath Cardiacno palpitations, no chest pain, no syncope Damaso nausea, vomiting, diarrhea, melena, hematochezia GUno urinary retention, no urinary incontinence, no dysuria, no hematuria Musculoskeletalright knee discomfort from fracture. No muscle tenderness Skinno bruising, no rashes, no pruritus Neurono isolated weakness, no paresthesia Psychno depression, no anxiety Physical Exam 2 Physical Exam: General-alert and oriented x3, no fever, no chills HEENT-head atraumatic and normocephalic, pupils equal and reactive to light, extraocular muscles intact Neck-no lymphadenopathy or thyromegaly, trachea midline Chest-clear to auscultation. No rales, wheezing or rhonchi Cardiac-regular rate and rhythm, normal S1 and S2 Abdomen-normal bowel sounds, no hepatosplenomegaly Extremities-medial right knee tenderness to palpation. No peripheral edema Neuro-cranial nerves II through XII intact, motor and sensory function within normal limits, strength symmetrical, no focal deficits Psych-normal affect, normal mood Results & Data Results & Data Vital Signs (Past 12 Hours) Vital Signs Temp Pulse Resp BP Pulse Ox O2 Del Method 03/11/24 08:02 36.4 C L 59 L 18 127/74 96 Room Air Laboratory Results 03/11/24 07:33 03/11/24 07:33 PG Care Time/CCT Total # of Minutes Spent Total Time Spent with Patient: Total time spent is greater than 50% in coordination of care (as documented) at patient's floor/unit and/or counseling patient: Coding Level of Care Code 62271 SUB INP/OBS CARE 3/50MIN Diagnoses Marissa-prosthetic fracture around prosthetic knee M97.11XA Encounter type: initial encounter Laterality: right Elevated troponin I level R79.89 NSVT (nonsustained ventricular tachycardia) I47.29 Acquired hypothyroidism E03.9 Hypothyroidism type: acquired (1) Marissa-prosthetic fracture around prosthetic knee Encounter type: initial encounter Laterality: right Qualified Code(s): M 97.11XA - Periprosthetic fracture around internal prosthetic right knee joint, initial encounter (4) Hypothyroid Hypothyroidism type: acquired Qualified Code(s): E03.9 - Hypothyroidism, unspecified
[2024-03-11] MEDS: ONDANSETRON INJ 2 MG/ML 2 ML VIAL IV PRN (17:40)
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
--- NOTE | 2024-03-12 14:13 | Hospitalist Progress Note ---
Date of Service March 12, 2024 Assessment & Plan (1) Marissa-prosthetic fracture around prosthetic knee: Plan: Fracture of the medial condyle of the right femur from falling at home. Previous right total knee arthroplasty hardware is in place. Appreciate orthopedic consultation recommendations. Nonoperative treatment with immobilizer and weightbearing as tolerated and pain control measures. (2) Elevated troponin I level: Plan: Chronic. No chest pain. No acute EKG changes. (3) NSVT (nonsustained ventricular tachycardia): Plan: History of NSVT in the past. Currently stable. Continue current medical management (4) Hypothyroid: Plan: Stable. Continue current medical management (5) : Plan: Supportive care. Seroquel 25 mg at bedtime. Plan Family wishes to take the patient home with them. This will occur on March 14 Admission and Anticipated Discharge Date Admission Date: March 10, 2024 Subjective Unfortunately, she developed psychosis last evening. She is now alert and oriented. Seroquel 25 mg at bedtime ordered. I spoke to her daughter, Kinga, today and she is aware of the current situation. Orthopedic consultation completed. No indication for surgical intervention with the right medial condyle femur fracture. She will wear a knee immobilizer with weightbearing as tolerated and follow-up with orthopedics in 3 weeks. Current plan is for her to go home with the family on March 14 Review of Systems 2 Review of Systems: Constitutionalno fever or chills ENTno blurred vision, no double vision, no epistaxis, no sore throat Respiratoryno cough, no wheezing, no shortness of breath Cardiacno palpitations, no chest pain, no syncope Damaso nausea, vomiting, diarrhea, melena, hematochezia GUno urinary retention, no urinary incontinence, no dysuria, no hematuria Musculoskeletalright knee discomfort from fracture. No muscle tenderness Skinno bruising, no rashes, no pruritus Neurono isolated weakness, no paresthesia Psychno depression, no anxiety Physical Exam 2 Physical Exam: General-alert and oriented x3, no fever, no chills HEENT-head atraumatic and normocephalic, pupils equal and reactive to light, extraocular muscles intact Neck-no lymphadenopathy or thyromegaly, trachea midline Chest-clear to auscultation. No rales, wheezing or rhonchi Cardiac-regular rate and rhythm, normal S1 and S2 Abdomen-normal bowel sounds, no hepatosplenomegaly Extremities-medial right knee tenderness to palpation. No peripheral edema Neuro-cranial nerves II through XII intact, motor and sensory function within normal limits, strength symmetrical, no focal deficits Psych-normal affect, normal mood Results & Data Results & Data Vital Signs (Past 12 Hours) Vital Signs Temp Pulse Resp BP Pulse Ox O2 Del Method 03/12/24 06:43 37 C 64 17 159/72 H 94 Room Air Laboratory Results 03/11/24 07:33 03/11/24 07:33 PG Care Time/CCT Total # of Minutes Spent Total Time Spent with Patient: Total time spent is greater than 50% in coordination of care (as documented) at patient's floor/unit and/or counseling patient: Coding Level of Care Code 78567 SUB INP/OBS CARE 3/50MIN Diagnoses Marissa-prosthetic fracture around prosthetic knee M97.11XA Encounter type: initial encounter Laterality: right Elevated troponin I level R79.89 NSVT (nonsustained ventricular tachycardia) I47.29 Acquired hypothyroidism E03.9 Hypothyroidism type: acquired Sundowning F05 (1) Marissa-prosthetic fracture around prosthetic knee Encounter type: initial encounter Laterality: right Qualified Code(s): M 97.11XA - Periprosthetic fracture around internal prosthetic right knee joint, initial encounter (4) Hypothyroid Hypothyroidism type: acquired Qualified Code(s): E03.9 - Hypothyroidism, unspecified
[2024-03-12] MEDS: CYANOCOBALAMIN 1000 MCG/ML VIAL IM SCH (14:22)
[2024-03-12] MEDS: IBUPROFEN 200 MG TAB PO PRN (15:37)
[2024-03-12] MEDS: QUEtiapine FUMARATE 25 MG TABLET PO SCH (20:35)
--- NOTE | 2024-03-13 12:38 | Hospitalist Progress Note ---
Date of Service March 13, 2024 Assessment & Plan (1) Marissa-prosthetic fracture around prosthetic knee: Plan: Fracture of the medial condyle of the right femur from falling at home. Previous right total knee arthroplasty hardware is in place. Appreciate orthopedic consultation recommendations. Nonoperative treatment with immobilizer and weightbearing as tolerated and pain control measures. (2) Elevated troponin I level: Plan: Chronic. No chest pain. No acute EKG changes. (3) NSVT (nonsustained ventricular tachycardia): Plan: History of NSVT in the past. Currently stable. Continue current medical management (4) Hypothyroid: Plan: Stable. Continue current medical management (5) owning: Plan: Supportive care. Seroquel 25 mg at bedtime controlled her symptoms last night. This Seroquel probably can be discontinued at discharge since she will be going home into familiar surroundings. Plan Family wishes to take the patient home with them. This will occur on March 14 Admission and Anticipated Discharge Date Admission Date: March 10, 2024 Subjective Alert and oriented. Granddaughter is at the bedside. No psychosis last night after addition of Seroquel at bedtime. Hopefully, the Seroquel can be discontinued at the time of discharge since she will be going home. Review of Systems 2 Review of Systems: Constitutionalno fever or chills ENTno blurred vision, no double vision, no epistaxis, no sore throat Respiratoryno cough, no wheezing, no shortness of breath Cardiacno palpitations, no chest pain, no syncope Damaso nausea, vomiting, diarrhea, melena, hematochezia GUno urinary retention, no urinary incontinence, no dysuria, no hematuria Musculoskeletalright knee medial discomfort from fracture. No muscle tenderness Skinno bruising, no rashes, no pruritus Neurono isolated weakness, no paresthesia Psychno depression, no anxiety Physical Exam 2 Physical Exam: General-alert and oriented x3, no fever, no chills HEENT-head atraumatic and normocephalic, pupils equal and reactive to light, extraocular muscles intact Neck-no lymphadenopathy or thyromegaly, trachea midline Chest-clear to auscultation. No rales, wheezing or rhonchi Cardiac-regular rate and rhythm, normal S1 and S2 Abdomen-normal bowel sounds, no hepatosplenomegaly Extremities-medial right knee tenderness to palpation. No peripheral edema Neuro-cranial nerves II through XII intact, motor and sensory function within normal limits, strength symmetrical, no focal deficits Psych-normal affect, normal mood Results & Data Results & Data Vital Signs (Past 12 Hours) Vital Signs Temp Pulse Resp BP Pulse Ox O2 Del Method 03/13/24 07:57 37.0 C 57 L 18 145/75 H 98 Room Air Laboratory Results 03/11/24 07:33 03/11/24 07:33 PG Care Time/CCT Total # of Minutes Spent Total Time Spent with Patient: Total time spent is greater than 50% in coordination of care (as documented) at patient's floor/unit and/or counseling patient: Coding Level of Care Code 93313 SUB INP/OBS CARE MIN Diagnoses Marissa-prosthetic fracture around prosthetic knee M97.11XA Encounter type: initial encounter Laterality: right Elevated troponin I level R79.89 NSVT (nonsustained ventricular tachycardia) I47.29 Acquired hypothyroidism E03.9 Hypothyroidism type: acquired Sundowning F05 (1) Marissa-prosthetic fracture around prosthetic knee Encounter type: initial encounter Laterality: right Qualified Code(s): M 97.11XA - Periprosthetic fracture around internal prosthetic right knee joint, initial encounter (4) Hypothyroid Hypothyroidism type: acquired Qualified Code(s): E03.9 - Hypothyroidism, unspecified
[2024-03-14 07:08] VITALS: RESP 16
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
--- NOTE | 2024-03-14 13:45 | Billing Data ---
Date of Service March 14, 2024 Coding Level of Care Code 52023 INP/OBS DISCH >30 MIN
[2024-03-14 14:36] VITALS: BP 161/70; PULSE 62; TEMP 97.9; O2SAT 99
== END 2024-03-14 15:41 | disposition home or self-care (01) | DRG 560 ==
LOC: ED 15:50 → INTOOBSV 18:58 → SUATTDRO 18:58 → 3N 18:58

== ENCOUNTER 2024-04-10 17:33 | Observation (INO) ==
[2024-04-10] MEDS: ACETAMINOPHEN 1,000 MG/100 ML VIAL IV STA (18:26)
[2024-04-10 18:28] LABS: Basophils # (auto) 0.05 K/uL (0.00-0.20); Basophils % (auto) 0.3 %; Eosinophils # (auto) 0.03 K/uL (0.00-0.50); Eosinophils % (auto) 0.2 %; Hematocrit (blood only) 38.5 % (37.0-47.0); Hemoglobin 13.4 g/dl (12.0-16.0); Immature Granulocytes # (auto) 0.09 K/uL (0.01-0.20); Immature Granulocytes % (auto) 0.6 %; Lymphocytes # (auto) 0.88 K/uL (1.20-3.40); Lymphocytes % (auto) 5.8 %; Mean Corpuscular Hemoglobin 34.1 pg (25.0-34.0); Mean Corpuscular Hgb Conc 34.8 g/dL (32.0-36.0); Mean Platelet Volume 10.1 fL (9.4-12.4); Monocytes # (auto) 1.27 K/uL (0.11-0.59); Monocytes % (auto) 8.4 %; Neutrophils # (auto) 12.77 K/uL (1.40-6.50); Neutrophils % (auto) 84.7 %; Platelet Count 229 K/uL (130-400); RDW Coefficient of Variation 13.2 % (11.5-14.5); RDW Standard Deviation 47.9 fL (36.4-46.3); Red Blood Count 3.93 M/uL (4.20-5.40); White Blood Count 15.09 K/ul (4.8-10.8)
[2024-04-10] MEDS: SODIUM CHLORIDE 0.9% 500 ML IV ONE ×2 (18:30→21:24)
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
[2024-04-10 18:46] LABS: Bilirubin,Total 2.2 mg/dl (0.2-1.0); Calcium 8.4 mg/dl (8.6-10.3); Creatinine Clr Calc Pharmacy 55.4 ml/min; Potassium 3.6 mmol/L (3.5-5.1)
[2024-04-10 18:52] LABS: INR 1.3 (0.9-1.1); Prothrombin Time 13.9 Seconds (9.0-12.0)
[2024-04-10 19:33] LABS: Adenovirus PCR Not Detected (NotDetected); Bordetella parapertussis PCR Not Detected (NotDetected); Bordetella pertussis PCR Not Detected (NotDetected); Chlamydia pneumoniae PCR Not Detected (NotDetected); Coronavirus 229E PCR Not Detected (NotDetected); Coronavirus CoV-2 (COVID19)PCR Not Detected (NotDetected); Coronavirus HKU1 PCR Not Detected (NotDetected); Coronavirus NL63 PCR Not Detected (NotDetected); Coronavirus OC43PCR Not Detected (NotDetected); Human Metapneumovirus PCR Not Detected (NotDetected); Influenza A PCR Not Detected (NotDetected); Influenza B PCR Not Detected (NotDetected); Mycoplasma pneumoniae PCR Not Detected (NotDetected); Parainfluenza Virus 1 PCR Not Detected (NotDetected); Parainfluenza Virus 2 PCR Not Detected (NotDetected); Parainfluenza Virus 3 PCR Not Detected (NotDetected); Parainfluenza Virus 4 PCR Not Detected (NotDetected); Respiratory Syncytial VirusPCR Not Detected (NotDetected); Rhinovirus/Enterovirus PCR Not Detected (NotDetected)
[2024-04-10] MEDS: CALCIUM GLUCONATE 1,000 MG/60 ML BAG IV STA (20:39)
--- NOTE | 2024-04-10 20:48 | CT Scan Report ---
Exam(s): CT HEAD Without Contrast EXAM: CT Head Without Intravenous Contrast CLINICAL HISTORY: Reason for exam: Trauma. TECHNIQUE: Axial computed tomography images of the head/brain without intravenous contrast. CTDI is 28.08 mGy and DLP is 1426.2 mGy-cm. Automated exposure control was utilized for the study. A dose lowering technique was utilized adhering to the principles of ALARA. COMPARISON: March 10, 2024 FINDINGS: Brain: Unremarkable. No hemorrhage. No significant white matter disease. No edema. Ventricles: Unremarkable. No ventriculomegaly. Bones/joints: Unremarkable. No acute fracture. Soft tissues: Unremarkable. Sinuses: Unremarkable as visualized. No acute sinusitis. Mastoid air cells: Unremarkable as visualized. No mastoid effusion. IMPRESSION: Head CT negative for acute intracranial abnormality. Electronically signed by: Walter Rollins MD 04/10/24 20:47 PM
--- NOTE | 2024-04-10 20:51 | CT Scan Report ---
Exam(s): CT ABDOMEN + PELVIS Without Contrast EXAM: CT Abdomen and Pelvis Without Intravenous Contrast CLINICAL HISTORY: Reason for exam: Trauma. TECHNIQUE: Axial computed tomography images of the abdomen and pelvis without intravenous contrast. CTDI is 24.41 mGy and DLP is 485.45 mGy-cm. Automated exposure control was utilized for the study. A dose lowering technique was utilized adhering to the principles of ALARA. COMPARISON: No relevant prior studies available. FINDINGS: Limitations: Exam limited secondary to lack of IV contrast. Lung bases: Unremarkable. No mass. No consolidation. Heart: Mitral valve calcifications. Coronary artery calcifications. ABDOMEN: Liver: Unremarkable. Gallbladder and bile ducts: Postoperative changes prior cholecystectomy. No ductal dilation. Pancreas: Unremarkable. No ductal dilation. Spleen: Unremarkable. No splenomegaly. Adrenals: Unremarkable. No mass. Kidneys and ureters: Unremarkable. No obstructing stones. No hydronephrosis. Stomach and bowel: Diverticulosis without evidence of diverticulitis. No obstruction. PELVIS: Appendix: Normal-appearing retrocecal appendix. Bladder: Unremarkable. No stones. Reproductive: Uterus is surgically absent. ABDOMEN and PELVIS: Intraperitoneal space: Unremarkable. No free air. No significant fluid collection. Bones/joints: Multilevel degenerative changes of the lumbar spine. No acute fracture. No dislocation. Soft tissues: Unremarkable. Vasculature: See above. Lymph nodes: Unremarkable. No enlarged lymph nodes. IMPRESSION: Limited exam as described above CT abdomen pelvis negative for acute traumatic abnormality Electronically signed by: Walter Rollins MD 04/10/24 20:50 PM
--- NOTE | 2024-04-10 20:52 | CT Scan Report ---
Exam(s): CT C SPINE EXAM: CT Cervical Spine Without Intravenous Contrast CLINICAL HISTORY: Reason for exam: Trauma. TECHNIQUE: Axial computed tomography images of the cervical spine without intravenous contrast. CTDI is 28.08 mGy and DLP is 1426.2 mGy-cm. Automated exposure control was utilized for the study. A dose lowering technique was utilized adhering to the principles of ALARA. COMPARISON: March 21, 2022 FINDINGS: No fracture or subluxations are noted. The vertebral body heights and alignment are preserved. No prevertebral soft tissue swelling. Note is made of multilevel cervical spondylosis with varying degrees of central canal and foramina stenoses. IMPRESSION: 1. No cervical fractures. 2. Cervical spondylosis with varying degrees of central canal and foramina stenoses. Electronically signed by: Walter Rollins MD 04/10/24 20:51 PM
--- NOTE | 2024-04-10 21:00 | CT Scan Report ---
Exam(s): CT CHEST Without Contrast EXAM: CT Chest Without Intravenous Contrast CLINICAL HISTORY: Reason for exam: Trauma. TECHNIQUE: Axial computed tomography images of the chest without intravenous contrast. CTDI is 27 mGy and DLP is 952.8 mGy-cm. Automated exposure control was utilized for the study. A dose lowering technique was utilized adhering to the principles of ALARA. COMPARISON: No relevant prior studies available. FINDINGS: Please see separate dictation for details of the intra-abdominal contents. Lungs: Unremarkable. No mass. No consolidation. Pleural space: Unremarkable. No significant effusion. No pneumothorax. Heart: Coronary artery calcifications. Mitral valvular calcifications. No cardiomegaly. No significant pericardial effusion. Bones/joints: Multilevel degenerative changes of the thoracic spine. No acute fracture. No dislocation. Soft tissues: Unremarkable. Vasculature: See above. Lymph nodes: Unremarkable. No enlarged lymph nodes. Other findings: IMPRESSION: No acute findings in the chest. Electronically signed by: Walter Rollins MD 04/10/24 20:59 PM
--- NOTE | 2024-04-10 21:01 | CT Scan Report ---
Exam(s): CT L SPINE EXAM: CT Lumbar Spine Without Intravenous Contrast CLINICAL HISTORY: Reason for exam: lower pain. TECHNIQUE: Axial computed tomography images of the lumbar spine without intravenous contrast. CTDI is 27 mGy and DLP is 952.8 mGy-cm. Automated exposure control was utilized for the study. A dose lowering technique was utilized adhering to the principles of ALARA. COMPARISON: No relevant prior studies available. FINDINGS: Vertebrae: diffuse osteopenia discogenic disc disease with superimposed facet and ligamentous hypertrophic changes at essentially every level resulting in severe bilateral foraminal narrowing at L3-L4 and L2-L3. No acute fracture. Discs/spinal canal/neural foramina: See above. Soft tissues: Unremarkable. IMPRESSION: No acute findings in the lumbar spine. Electronically signed by: Walter Rollins MD 04/10/24 21:00 PM
--- NOTE | 2024-04-10 21:02 | CT Scan Report ---
Exam(s): CT T SPINE EXAM: CT Thoracic Spine Without Intravenous Contrast CLINICAL HISTORY: Reason for exam: lower T spine. TECHNIQUE: Axial computed tomography images of the thoracic spine without intravenous contrast. CTDI is 27 mGy and DLP is 952.8 mGy-cm. Automated exposure control was utilized for the study. A dose lowering technique was utilized adhering to the principles of ALARA. COMPARISON: No relevant prior studies available. FINDINGS: Vertebrae: Diffuse osteopenia. Multilevel degenerative changes with severe bilateral foraminal stenosis at T9-T10. No acute fracture. Discs/spinal canal/neural foramina: See above. Soft tissues: Unremarkable. IMPRESSION: No acute findings in the thoracic spine. Electronically signed by: Walter Rollins MD 04/10/24 21:01 PM
[2024-04-10] MEDS: cefTRIAXone SODIUM 2,000 MG/50 ML BAG IV STA (21:24)
[2024-04-10 21:40] LABS: Appearance Urine Cloudy (Clear); Bacteria Urine Automated 4+ (None Seen); Bilirubin Urine Negative (Negative); Blood Urine 2+ (Negative); Color Urine Dark Yellow; Epithelial Cell Urine Auto 0-2 /hpf (0-2); Glucose Urine UA Negative (Negative); Ketones Urine Negative (Negative); Leukocyte Esterase Urine 3+ (Negative); Nitrite Urine Negative (Negative); Protein Urine 1+ (Negative); RBC Urine Automated 0-2 /hpf (0-2); Specific Gravity Urine 1.014 (1.000-1.030); Urobilinogen Urine Negative (Negative); WBC Urine Automated >50 /hpf (0-5); pH Urine 5.5 (4.5-7.5)
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
[2024-04-10] MEDS ORDERED: ONDANSETRON INJ 2 MG/ML 2 ML VIAL IV PRN (23:12)
[2024-04-11] MEDS: ENOXAPARIN INJ 40 MG/0.4 ML SYR SQ SCH (05:42)
[2024-04-11] MEDS: LEVOTHYROXINE SODIUM 75 MCG TABLET PO SCH (05:42)
[2024-04-11 06:48] LABS: Basophils # (auto) 0.04 K/uL (0.00-0.20); Basophils % (auto) 0.2 %; Eosinophils # (auto) 0.01 K/uL (0.00-0.50); Hematocrit (blood only) 32.7 % (37.0-47.0); Hemoglobin 11.7 g/dl (12.0-16.0); Immature Granulocytes # (auto) 0.18 K/uL (0.01-0.20); Immature Granulocytes % (auto) 0.8 %; Lymphocytes # (auto) 1.35 K/uL (1.20-3.40); Lymphocytes % (auto) 6.3 %; Mean Corpuscular Hemoglobin 34.4 pg (25.0-34.0); Mean Corpuscular Hgb Conc 35.8 g/dL (32.0-36.0); Mean Corpuscular Volume 96.2 fL (80.0-100.0); Mean Platelet Volume 9.9 fL (9.4-12.4); Monocytes # (auto) 1.86 K/uL (0.11-0.59); Monocytes % (auto) 8.6 %; Neutrophils # (auto) 18.16 K/uL (1.40-6.50); Neutrophils % (auto) 84.1 %; Platelet Count 213 K/uL (130-400); RDW Coefficient of Variation 13.3 % (11.5-14.5); RDW Standard Deviation 47.3 fL (36.4-46.3)
[2024-04-11 07:17] LABS: Albumin Level 2.5 gm/dl (3.4-5.0); BUN Creatinine Ratio 13.3 (10-20); Magnesium 1.6 mg/dl (1.7-2.4); Potassium 3.4 mmol/L (3.5-5.1)
[2024-04-11] MEDS: METOPROLOL SUCC 25MG EXT REL TAB PO SCH (09:08)
[2024-04-11] MEDS: CHOLECALCIFEROL 125 MCG (5,000 UNITS) TAB PO SCH (09:08)
--- NOTE | 2024-04-11 09:13 | Electrocardiogram Report ---
Test Reason : Blood Pressure : */* mmHG Vent. Rate : 93 BPM Atrial Rate : 133 BPM P-R Int : * ms QRS Dur : 80 ms QT Int : 392 ms P-R-T Axes : 64 31 81 degrees QTcB Int : 487 ms Possible wandering atrial pacemaker Otherwise normal ECG When compared with ECG of 10-Mar-2024 16:18, Current undetermined rhythm precludes rhythm comparison, needs review Nonspecific T wave abnormality now evident in Lateral leads Confirmed by Paula Alvares (Delilah) on 04/11/2024 9:12:24 AM Referred By: REFERRED SELF Confirmed By: Paula Alvares
[2024-04-11] MEDS: ACETAMINOPHEN 500 MG TAB PO SCH (09:17)
[2024-04-11] MEDS: POTASSIUM CHLORIDE CRTAB 20 MEQ TABCR PO ONE (09:17)
[2024-04-11] MEDS: MAGNESIUM SULFATE / D5W 1 GM/100 ML BAG IV SCH (09:49)
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
[2024-04-11] MEDS: PHYTONADIONE 5 MG TAB PO SCH (09:50)
[2024-04-11 14:39] VITALS: TEMP 97.9; O2SAT 96
--- NOTE | 2024-04-11 18:11 | Hospitalist Progress Note ---
Date of Service April 11, 2024 Assessment & Plan (1) Urinary tract infection: Plan: 78-year-old woman who presented with a fall and was found to have a urinary tract infection. She was admitted last month with a periprosthetic right knee fracture she says that that is doing well and is not painful. She has macular degeneration, uses a walker, lives with her grandson and is on 1 level. she has had recurrent UTIs UTI, significant associated leukocytosis, afebrile. no obstructive lesions on CT abdomen pelvis - continue ceftriaxone, urine culture growing Klebsiella pneumoniae sensitivities pending - ordered a.m. CBC appreciate urology consult for frequent UTIs, I had discussed Estrace cream with her, vaginal Estrace cream or methenamine are options for discharge. Follow-up in urology clinic (2) Fall: Plan: multifactorial including macular degeneration, baseline unsteady gait, urinary tract infection. trauma CTs were negative for any acute fractures or bleeding - PT recommends home with home health PT, OT currently recommending rehab (3) Paroxysmal atrial fibrillation: Plan: paroxysmal A-fib and history of hypertension continue metoprolol she is not anticoagulated (4) MCI (mild cognitive impairment): Plan: noted, today she is oriented times place and situation Plan Cervical, thoracic, and lumbar spinal multilevel degenerative disc disease, central and foraminal stenosis- Patient is that 3 previous lumbar surgeries Continue acetaminophen 1000 mg p.o. 3 times daily Periprosthetic right knee fracture- Hospitalization from 03/10-03/14/2024 PT/OT consults as noted Macular degeneration- Noted significant visual difficulties affecting ADLs Take into consideration as patient works on PT/OT Patient does have a walker at home, which she regularly does not use DVT prophylaxisenoxaparin Admission and Anticipated Discharge Date Admission Date: April 10, 2024 Subjective feeling better, stronger never had dysuria/urinary frequency, abdominal pain or fever Physical Exam 2 Physical Exam: PHYSICAL EXAMINATION Last 24h vital signs reviewed, see documentation in flowsheet General: comfortable appearing, no distress HEENT: Normocephalic, atraumatic, pupils round and equal, sclerae anicteric, no conjunctival injection, moist mucus membranes Lungs: Normal respiratory effort. Clear to auscultation bilaterally. No RRW Heart: Regular rate and rhythm, no murmurs. No JVD Abdomen: Soft, nontender, nondistended. Bowel sounds present. no suprapubic tenderness Extremities: Warm, dry, well-perfused. No extremity edema. Neuro: Alert and oriented x 4, face symmetric, moves 4 extremities well Psych: Normal affect and behavior Results & Data Results & Data Vital Signs (Past 12 Hours) Vital Signs Temp Pulse Resp BP Pulse Ox O2 Del Method 04/11/24 14:38 36.6 C 65 16 102/62 96 Room Air 04/11/24 07:51 Room Air 04/11/24 07:46 36.7 C 76 16 110/65 97 Room Air Laboratory Results 04/11/24 06:22 04/11/24 06:22 PG Care Time/CCT Total # of Minutes Spent Total Time Spent with Patient: Total time spent is greater than 50% in coordination of care (as documented) at patient's floor/unit and/or counseling patient: Coding Level of Care Code 82157 SUB INP/OBS CARE 2/35MIN Diagnoses Urinary tract infection N39.0 Fall W19.XXXA Encounter type: initial encounter Paroxysmal atrial fibrillation I48.0 MCI (mild cognitive impairment) G31.84 (2) Fall Encounter type: initial encounter Qualified Code(s): W19.XXXA - Unspecified fall, initial encounter
[2024-04-11] MEDS: cefTRIAXone SODIUM 2,000 MG/50 ML BAG IV SCH (21:25)
[2024-04-12 06:32] LABS: Hematocrit (blood only) 33.1 % (37.0-47.0); Hemoglobin 11.3 g/dl (12.0-16.0); Mean Corpuscular Hemoglobin 33.7 pg (25.0-34.0); Mean Corpuscular Hgb Conc 34.1 g/dL (32.0-36.0); Mean Corpuscular Volume 98.8 fL (80.0-100.0); Mean Platelet Volume 10.2 fL (9.4-12.4); Platelet Count 213 K/uL (130-400); RDW Coefficient of Variation 13.6 % (11.5-14.5); RDW Standard Deviation 50.1 fL (36.4-46.3); Red Blood Count 3.35 M/uL (4.20-5.40); White Blood Count 10.08 K/ul (4.8-10.8)
[2024-04-12 06:33] LABS: Basophils # (auto) 0.05 K/uL (0.00-0.20); Basophils % (auto) 0.5 %; Eosinophils # (auto) 0.32 K/uL (0.00-0.50); Eosinophils % (auto) 3.2 %; Immature Granulocytes # (auto) 0.04 K/uL (0.01-0.20); Immature Granulocytes % (auto) 0.4 %; Lymphocytes # (auto) 1.14 K/uL (1.20-3.40); Lymphocytes % (auto) 11.3 %; Monocytes # (auto) 1.01 K/uL (0.11-0.59); Neutrophils # (auto) 7.52 K/uL (1.40-6.50); Neutrophils % (auto) 74.6 %
[2024-04-12 06:39] LABS: Albumin Level 2.4 gm/dl (3.4-5.0); BUN Creatinine Ratio 15.7 (10-20); Calcium 7.8 mg/dl (8.6-10.3); Creatinine Clr Calc Pharmacy 52.8 ml/min; Phosphorus 2.5 mg/dl (2.5-4.9); Potassium 3.7 mmol/L (3.5-5.1)
[2024-04-12 06:57] LABS: INR 1.2 (0.9-1.1)
[2024-04-12 07:37] VITALS: BP 111/67; PULSE 63; RESP 16
[2024-04-12] MEDS: CYANOCOBALAMIN 1000 MCG/ML VIAL IM SCH (09:45)
--- NOTE | 2024-04-12 12:20 | Discharge Summary ---
Discharge Summary Date of Service date of admission - April 10, 2024 date of discharge - April 12, 2024 Principal Dx & Hospital Course #1 = Principal Diagnosis (1) Urinary tract infection: Patient with h/o recurrent UTIs. Urine cx this admission with pansensitive klebsiella. CT a/p this admission with normal appearing urinary tract - no obstructing stones, etc. s/p IV ceftriaxone x 2 doses. Will complete a 5-day course of PO keflex upon discharge. Seen by [facility] while here for frequent UTIs. A few options were discussed. After keflex course is complete we will initiate methenamine 1g BID for UTI prophylaxis. f/u [facility] in the clinic for a recheck. (2) Fall: Just prior to admission patient had an episode of weakness followed by a fall. Fortunately she had no new injuries or fractures due to this fall. Etiology for her fall(s) - B12 deficiency, macular degeneration, baseline unsteady gait, DJD of cervical & lumbar spine, and recurrent urinary tract infection likely all to blame. Seen by PT/OT - she will return home with home health services including Pt/Ot. (3) Paroxysmal atrial fibrillation: Continue metoprolol succinate 12.5mg daily. She is not on chronic anticoagulation. EKG this am either with NSR or wandering atrial pacemaker. (4) MCI (mild cognitive impairment): (5) Periprosthetic fracture around prosthetic knee: RIGHT. Hospitalized for such 03/10/24 to 03/14/24. Continue knee immobilizer. (6) Degenerative disc disease, lumbar: Cervical, thoracic, and lumbar spine CTs with multilevel degenerative disc disease as well as central and foraminal stenosis. Patient has had 3 previous lumbar surgeries. (7) Vitamin B12 deficiency: Most recent B12 level was 185. This is despite use of B12 injections at home. Advised weekly injections for a month then return to usual dosing (1x/month). I did give a dose of B12 1000mcg IM x 1 while here. Also advised thiamine supplementation for 1 month. Notes For Next Care Provider Continue right knee immobilizer. Medication Changes From Visit 1. keflex BID x 5 days 2. methenamine 1gm BID for prophylaxis of UTI after keflex course is complete Admission HPI Per Admitting Provider The patient is a 78-year-old female with a past medical history including periprosthetic right knee fracture, NSVT, mild cognitive impairment, macular degeneration, paroxysmal atrial fibrillation, gait disturbance, hypertension, portal vein thrombosis, vitamin D deficiency, vitamin B12 deficiency, lumbar degenerative disc disease with 3 previous surgeries and dyslipidemia. The patient was brought to the emergency department via ambulance as noted above. She had CT scan of head, cervical spine, chest, thoracic spine, lumbar spine and abdomen with pelvis, none of which showed acute findings. Urinalysis was suggestive of urinary tract infection, which was presumed to be her cause of weakness due to similar presentations with urinary tract infections in the past. [facility] Discharge Exam gen - NAD, pleasant neck - no JVD mouth - MMM heart - RRR, s1 s2 lungs - CTA b/l abd - soft NT ND BS+ ext - no peripheral edema, pulses 2+ b/l feet psych - awake/alert, pleasant Discharge Plan Discharge Items Patient Disposition: Home - Home Health Services Reason For Visit: RECURRENT UTI, GENERAL WEAKNESS, S/P FALL Discharge Diagnosis: 1. Urinary tract infection (UTI) 2. Generalized weakness due to #1 3. Recurrent falls 4. Vitamin B12 deficiency 5. Recent right-sided periprosthetic femur fracture 6. Hypothyroidism 7. Question of underlying liver disease/cirrhosis - follow-up with PCP needed 8. Vitamin D insufficiency 9. Legal Blindness Activity: Per Instructions section Weightbearing: Right weightbearing Weightbearing Comment: ideally please use your knee immobilizer on the right knee with walking Non-emergency contact: Primary Care Provider and Specialist Call non-emergency contact if: you have any medication questions, your symptoms worsen, your pain is not controlled, your pain is worsening and you have a fever Follow-up/Referrals: David Lua CRNP [Primary Care Provider] - (1 week ) Sagar Colby DO [Physician] - (first available appointment; diagnosis - recurrent UTIs ) Chemo Hagen DO [Physician] - (2 weeks -- for recheck of right periprosthetic femur fracture ) Diet: Regular Addtl Attending Provider Instructions: Mrs Arzola, You were hospitalized after having had a fall. Fortunately all imaging results of the chest, abdomen, pelvis, neck, back, etc did not show any new broken bones or other internal injuries. Urine testing showed evidence of urinary tract infection (UTI). You received IV antibiotics for this. [facility] saw you in consult because of the recurrent UTI problem you have had. They will see you in clinic to monitor this. We are going to try a medicine called methenamine to prevent future UTIs. You were seen by PT/OT. PT felt you could return home with your family. Home health services were recommended. Outpatient PT/OT was also recommended. Recommendations - 1. cephalexin 500mg twice daily x 5 days for UTI, first dose TONIGHT 2. after the cephalexin course is complete you can start the Methenamine for UTI prevention; again do not start the Methenamine until the cephalexin course is finished * Methenamine 1000mg twice daily for UTI prevention 3. please give yourself a vitamin B12 injection on a weekly basis for at least 4 more weeks then can switch to monthly after that (or as previously directed by your outpatient providers). We did give you an extra B12 shot today. You can take another B12 injection any time later this week 4. take thiamine 200mg twice daily x 30 days; you can start this anytime in the next 1-2 days. Thiamine, also known as vitamin B1, is often present when people have vitamin B12 deficiency 5. consider taking a multivitamin daily 6. consider drinking a boost or ensure on a daily or twice daily basis to help improve your nutrition 7. some of your labs for your liver have been mildly abnormal for some time. Previous imaging of your liver showed possible cirrhosis. Please talk to your family doctor about getting a dedicated ultrasound of your liver to gather more information about the liver 8. continue to use ice on your right knee as needed 9. use your knee immobilizer on the right knee as much as possible as previously recommended by orthopedics Follow-up - see separate section Return to [facility] if - * you have fever over 100 degrees * you have worsening right knee pain or right leg pain * you feel dizzy or lightheaded or unsteady * any other concerns It was our pleasure to care for you! Pending Studies at Discharge: No Stand-Alone Forms: [facility] [employer], Smoking Cessation Medications and DC Order Prescriptions: New methenamine hippurate 1 gram tablet 1 g PO BID Qty: 60 2RF Rx Instructions: for UTI prevention thiamine mononitrate (vit B1) 100 mg tablet 200 mg PO BID 30 Days Qty: 120 0RF Continued levothyroxine [Synthroid] 75 mcg tablet 75 mcg PO QAM Qty: 90 2RF Rx Instructions: brand name only cholecalciferol (vitamin D3) 125 mcg (5,000 unit) capsule 125 mcg PO DAILY Qty: 30 0RF (DME) BD Eclipse 25 gauge x 1" needle See Rx Instructions .Route Qty: 30 0RF Rx Instructions: As directed for b12 injections cyanocobalamin (vitamin B-12) 1,000 mcg/mL solution 1,000 mcg IM .COMPLEX 7 Days Qty: 10 1RF Rx Instructions: Inject IM 1 mL once weekly for 4 weeks, then inject IM 1 mL once monthly; metoprolol succinate 25 mg tablet extended release 24 hr 12.5 mg PO DAILY acetaminophen [Tylenol Extra Strength] 500 mg Tablet 1,000 mg PO TID Qty: 90 0RF Discontinued ibuprofen 200 mg Tablet 400 mg PO Q6H PRN (Reason: pain) Qty: 30 0RF Discharge Orders: Discharge Order (Routine); Ordered 04/12/24 Ordered By: Wojciech Denney/Other Patient Handouts: Preventing Falls in the Home Admission Data Admit Date/Time: 04/10/24 22:13 Attending Provider: Wojciech Lance Admit Provider: Andrey Dennison Primary Care Provider: David Lua Other Providers: Dejuan Patino [facility]; Derrek Ramon Other Interventions: Discharge Summary Assessment (RN) Last Done: 04/12/24 12:06 Hospital Stay Data Consultations [facility] PT, OT Diagnostic Imagining Performed Cervical Spine CT 04/10/24 18:16 Exam(s): CT C SPINE EXAM: CT Cervical Spine Without Intravenous Contrast CLINICAL HISTORY: Reason for exam: Trauma. TECHNIQUE: Axial computed tomography images of the cervical spine without intravenous contrast. CTDI is 28.08 mGy and DLP is 1426.2 mGy-cm. Automated exposure control was utilized for the study. A dose lowering technique was utilized adhering to the principles of ALARA. COMPARISON: March 21, 2022 FINDINGS: No fracture or subluxations are noted. The vertebral body heights and alignment are preserved. No prevertebral soft tissue swelling. Note is made of multilevel cervical spondylosis with varying degrees of central canal and foramina stenoses. IMPRESSION: 1. No cervical fractures. 2. Cervical spondylosis with varying degrees of central canal and foramina stenoses. Electronically signed by: Walter Rollins MD 04/10/24 20:[address] 04/10/24 18:16 Exam(s): CT HEAD Without Contrast EXAM: CT Head Without Intravenous Contrast CLINICAL HISTORY: Reason for exam: Trauma. TECHNIQUE: Axial computed tomography images of the head/brain without intravenous contrast. CTDI is 28.08 mGy and DLP is 1426.2 mGy-cm. Automated exposure control was utilized for the study. A dose lowering technique was utilized adhering to the principles of ALARA. COMPARISON: March 10, 2024 FINDINGS: Brain: Unremarkable. No hemorrhage. No significant white matter disease. No edema. Ventricles: Unremarkable. No ventriculomegaly. Bones/joints: Unremarkable. No acute fracture. Soft tissues: Unremarkable. Sinuses: Unremarkable as visualized. No acute sinusitis. Mastoid air cells: Unremarkable as visualized. No mastoid effusion. IMPRESSION: Head CT negative for acute intracranial abnormality. Electronically signed by: Walter Rollins MD 04/10/24 20:47 PM Abdomen/Pelvis CT 04/10/24 18:17 Exam(s): CT ABDOMEN + PELVIS Without Contrast EXAM: CT Abdomen and Pelvis Without Intravenous Contrast CLINICAL HISTORY: Reason for exam: Trauma. TECHNIQUE: Axial computed tomography images of the abdomen and pelvis without intravenous contrast. CTDI is 24.41 mGy and DLP is 485.45 mGy-cm. Automated exposure control was utilized for the study. A dose lowering technique was utilized adhering to the principles of ALARA. COMPARISON: No relevant prior studies available. FINDINGS: Limitations: Exam limited secondary to lack of IV contrast. Lung bases: Unremarkable. No mass. No consolidation. Heart: Mitral valve calcifications. Coronary artery calcifications. ABDOMEN: Liver: Unremarkable. Gallbladder and bile ducts: Postoperative changes prior cholecystectomy. No ductal dilation. Pancreas: Unremarkable. No ductal dilation. Spleen: Unremarkable. No splenomegaly. Adrenals: Unremarkable. No mass. Kidneys and ureters: Unremarkable. No obstructing stones. No hydronephrosis. Stomach and bowel: Diverticulosis without evidence of diverticulitis. No obstruction. PELVIS: Appendix: Normal-appearing retrocecal appendix. Bladder: Unremarkable. No stones. Reproductive: Uterus is surgically absent. ABDOMEN and PELVIS: Intraperitoneal space: Unremarkable. No free air. No significant fluid collection. Bones/joints: Multilevel degenerative changes of the lumbar spine. No acute fracture. No dislocation. Soft tissues: Unremarkable. Vasculature: See above. Lymph nodes: Unremarkable. No enlarged lymph nodes. IMPRESSION: Limited exam as described above CT abdomen pelvis negative for acute traumatic abnormality Electronically signed by: Walter Rollins MD 04/10/24 20:[address] 04/10/24 18:17 Exam(s): CT CHEST Without Contrast EXAM: CT Chest Without Intravenous Contrast CLINICAL HISTORY: Reason for exam: Trauma. TECHNIQUE: Axial computed tomography images of the chest without intravenous contrast. CTDI is 27 mGy and DLP is 952.8 mGy-cm. Automated exposure control was utilized for the study. A dose lowering technique was utilized adhering to the principles of ALARA. COMPARISON: No relevant prior studies available. FINDINGS: Please see separate dictation for details of the intra-abdominal contents. Lungs: Unremarkable. No mass. No consolidation. Pleural space: Unremarkable. No significant effusion. No pneumothorax. Heart: Coronary artery calcifications. Mitral valvular calcifications. No cardiomegaly. No significant pericardial effusion. Bones/joints: Multilevel degenerative changes of the thoracic spine. No acute fracture. No dislocation. Soft tissues: Unremarkable. Vasculature: See above. Lymph nodes: Unremarkable. No enlarged lymph nodes. Other findings: IMPRESSION: No acute findings in the chest. Electronically signed by: Walter Rollins MD 04/10/24 20:[address] 04/10/24 18:40 Exam(s): CT L SPINE EXAM: CT Lumbar Spine Without Intravenous Contrast CLINICAL HISTORY: Reason for exam: lower pain. TECHNIQUE: Axial computed tomography images of the lumbar spine without intravenous contrast. CTDI is 27 mGy and DLP is 952.8 mGy-cm. Automated exposure control was utilized for the study. A dose lowering technique was utilized adhering to the principles of ALARA. COMPARISON: No relevant prior studies available. FINDINGS: Vertebrae: diffuse osteopenia discogenic disc disease with superimposed facet and ligamentous hypertrophic changes at essentially every level resulting in severe bilateral foraminal narrowing at L3-L4 and L2-L3. No acute fracture. Discs/spinal canal/neural foramina: See above. Soft tissues: Unremarkable. IMPRESSION: No acute findings in the lumbar spine. Electronically signed by: Walter Rollins MD 04/10/24 21:[address] 04/10/24 18:40 Exam(s): CT T SPINE EXAM: CT Thoracic Spine Without Intravenous Contrast CLINICAL HISTORY: Reason for exam: lower T spine. TECHNIQUE: Axial computed tomography images of the thoracic spine without intravenous contrast. CTDI is 27 mGy and DLP is 952.8 mGy-cm. Automated exposure control was utilized for the study. A dose lowering technique was utilized adhering to the principles of ALARA. COMPARISON: No relevant prior studies available. FINDINGS: Vertebrae: Diffuse osteopenia. Multilevel degenerative changes with severe bilateral foraminal stenosis at T9-T10. No acute fracture. Discs/spinal canal/neural foramina: See above. Soft tissues: Unremarkable. IMPRESSION: No acute findings in the thoracic spine. Electronically signed by: Walter Rollins MD 04/10/24 21:01 PM Pending Results Patient Have Any Pending Studies at Discharge: No Discharge Instructions Given to Patient (Per Discharging Provider) Mrs Arzola, Floyd were hospitalized after having had a fall. Fortunately all imaging results of the chest, abdomen, pelvis, neck, back, etc did not show any new broken bones or other internal injuries. Urine testing showed evidence of urinary tract infection (UTI). You received IV antibiotics for this. [facility] saw you in consult because of the recurrent UTI problem you have had. They will see you in clinic to monitor this. We are going to try a medicine called methenamine to prevent future UTIs. You were seen by PT/OT. PT felt you could return home with your family. Home health services were recommended. Outpatient PT/OT was also recommended. Recommendations - 1. cephalexin 500mg twice daily x 5 days for UTI, first dose TONIGHT 2. after the cephalexin course is complete you can start the Methenamine for UTI prevention; again do not start the Methenamine until the cephalexin course is finished * Methenamine 1000mg twice daily for UTI prevention 3. please give yourself a vitamin B12 injection on a weekly basis for at least 4 more weeks then can switch to monthly after that (or as previously directed by your outpatient providers). We did give you an extra B12 shot today. You can take another B12 injection any time later this week 4. take thiamine 200mg twice daily x 30 days; you can start this anytime in the next 1-2 days. Thiamine, also known as vitamin B1, is often present when people have vitamin B12 deficiency 5. consider taking a multivitamin daily 6. consider drinking a boost or ensure on a daily or twice daily basis to help improve your nutrition 7. some of your labs for your liver have been mildly abnormal for some time. Previous imaging of your liver showed possible cirrhosis. Please talk to your family doctor about getting a dedicated ultrasound of your liver to gather more information about the liver 8. continue to use ice on your right knee as needed 9. use your knee immobilizer on the right knee as much as possible as p reviously recommended by orthopedics Follow-up - see separate section Return to [facility] if - * you have fever over 100 degrees * you have worsening right knee pain or right leg pain * you feel dizzy or lightheaded or unsteady * any other concerns It was our pleasure to care for you! Total Time Total Time Spent Total Time Spent (In Minutes): 40 Coding Level of Care Code 96007 INP/OBS DISCH >30 MIN Diagnoses Urinary tract infection N39.0 Fall W19.XXXA Encounter type: initial encounter Paroxysmal atrial fibrillation I48.0 MCI (mild cognitive impairment) G31.84 Periprosthetic fracture around prosthetic knee M97.8XXA; Z96.659 Degenerative disc disease, lumbar M51.36 Vitamin B12 deficiency E53.8 Home Health Attestation I certify that this patient is under my care and that I, or a physicians pastry assistant working with me, had a face to-face encounter that meets the home health [id number] encounter requirements with this patient. The encounter with the patient was in whole, or in part, for the following medical condition, which is the primary reason for home health care (list medical condition): I certify that, based on my findings, the following services are medically necessary home health services: My clinical findings support the need for the above services because: Further, I certify that my clinical findings support that this patient is homebound (i.e. absences from home require considerable and taxing effort and are for medical reasons or temple services or infrequently or of short duration when for other reasons) because: Certification for Home Health Services: Based on the above findings, I certify that this patient is confined to the home and needs intermittent group home care, physical therapy and/or speech therapy or continues to need occupational therapy. The patient is under my care, and I have initiated the establishment of the plan of care. This patient will be followed by a physician who will periodically review the plan of care.
[2024-04-12] MEDS ORDERED: cephALEXin 500 MG CAP PO SCH (21:00)
== END 2024-04-12 13:32 | disposition home health service (06) | DRG 690 ==
LOC: ED 17:33 → SUATTDRO 22:13 → INTOOBSV 22:13 → 3N 22:13

== ENCOUNTER 2025-05-21 11:05 | Observation (INO) ==
[2025-05-21 11:43] LABS: Hematocrit (blood only) 39.1 % (37.0-47.0); Hemoglobin 13.6 g/dL (12.0-16.0); Immature Granulocytes # (auto) 0.01 K/uL (0.01-0.20); Immature Granulocytes % (auto) 0.2 %; Mean Corpuscular Hemoglobin 34.6 pg (25.0-34.0); Mean Corpuscular Volume 99.5 fL (80.0-100.0); Platelet Count 193 K/uL (130-400); RDW Standard Deviation 52.5 fL (36.4-46.3); Red Blood Count 3.93 M/uL (4.20-5.40); White Blood Count 4.29 K/ul (4.8-10.8)
[2025-05-21 12:02] LABS: Alanine Aminotransferase 25.0 U/L (7-52); Albumin Globulin Ratio 1.1 (0.9-2); Albumin Level 3.0 gm/dl (3.4-5.0); Alkaline Phosphatase 76.0 U/L (34-104); Anion Gap 10.0 (3-11); Bilirubin,Total 1.6 mg/dl (0.2-1.0); Blood Urea Nitrogen 12.0 mg/dl (6-23); Calcium 8.3 mg/dl (8.6-10.3); Carbon Dioxide 23.0 mmol/L (21-32); Chloride 106.0 mmol/L (98-107); Creatinine Clr Calc Pharmacy 58.7 ml/min; Globulin 2.7 gm/dl (2.5-4.0); Glucose 87.0 mg/dl (70-99(Fasting)); Potassium 3.6 mmol/L (3.5-5.1); Sodium 139.0 mmol/L (136-145); Total Protein 5.7 gm/dl (6.0-8.3)
--- NOTE | 2025-05-21 12:05 | XRay Report ---
HISTORY: Dyspnea TECHNIQUE: Portable AP radiograph of the chest. COMPARISON: Chest radiograph dated 03/10/2024. FINDINGS: No focal lung consolidation. No pneumothorax or effusion. Cardiac loop recorder. Normal heart size. Left-sided aortic arch. No acute osseous abnormality. The included upper abdomen is unremarkable. IMPRESSION: No acute cardiopulmonary findings. Electronically signed by Navi Hong 05-21-2025 12:03 PM
[2025-05-21 12:49] LABS: Chlamydia pneumoniae PCR Not Detected (NotDetected); Coronavirus 229E PCR Not Detected (NotDetected); Coronavirus CoV-2 (COVID19)PCR DETECTED (NotDetected); Coronavirus HKU1 PCR Not Detected (NotDetected); Coronavirus NL63 PCR Not Detected (NotDetected); Coronavirus OC43PCR Not Detected (NotDetected); Human Metapneumovirus PCR Not Detected (NotDetected); Parainfluenza Virus 1 PCR Not Detected (NotDetected); Parainfluenza Virus 2 PCR Not Detected (NotDetected); Parainfluenza Virus 3 PCR Not Detected (NotDetected); Parainfluenza Virus 4 PCR Not Detected (NotDetected); Respiratory Syncytial VirusPCR Not Detected (NotDetected); Rhinovirus/Enterovirus PCR Not Detected (NotDetected)
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
[2025-05-21 13:02] LABS: Appearance Urine Clear (Clear); Glucose Urine UA Negative (Negative)
[2025-05-21] MEDS ORDERED: ALBUT/IPRATROP 3MG/0.5MG NEB 3 ML VIAL NEB PRN (15:02)
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
[2025-05-21] MEDS: guaiFENesin 600 MG TABCR PO SCH (21:26)
[2025-05-21] MEDS: BENZONATATE 100 MG CAPSULE PO PRN (21:26)
[2025-05-21] MEDS: ACETAMINOPHEN 325 MG TAB PO PRN (21:26)
[2025-05-21] MEDS: MEMANTINE HCL 10 MG TAB PO SCH (21:26)
[2025-05-21] MEDS: HEPARIN SOD 5,000 UNIT/0.5 ML VIAL SQ SCH (21:35)
[2025-05-22] MEDS: LEVOTHYROXINE SODIUM 75 MCG TABLET PO SCH (05:55)
[2025-05-22 06:50] LABS: Hematocrit (blood only) 35.7 % (37.0-47.0); Hemoglobin 12.5 g/dL (12.0-16.0); Mean Corpuscular Hemoglobin 34.6 pg (25.0-34.0); Mean Corpuscular Volume 98.9 fL (80.0-100.0); Platelet Count 170 K/uL (130-400); RDW Standard Deviation 51.8 fL (36.4-46.3); Red Blood Count 3.61 M/uL (4.20-5.40); White Blood Count 4.61 K/ul (4.8-10.8)
[2025-05-22 07:26] LABS: Anion Gap 7.0 (3-11); Blood Urea Nitrogen 11.0 mg/dl (6-23); Calcium 7.9 mg/dl (8.6-10.3); Carbon Dioxide 25.0 mmol/L (21-32); Chloride 107.0 mmol/L (98-107); Creatinine Clr Calc Pharmacy 72.6 ml/min; Glucose 71.0 mg/dl (70-99(Fasting)); Potassium 3.5 mmol/L (3.5-5.1); Sodium 139.0 mmol/L (136-145)
[2025-05-22] MEDS: CHOLECALCIFEROL 125 MCG (5,000 UNITS) TAB PO SCH (08:16)
[2025-05-22] MEDS: METOPROLOL SUCC 25MG EXT REL TAB PO SCH (08:16)
--- NOTE | 2025-05-22 10:14 | Hospitalist Progress Note ---
Date of Service May 22, 2025 Assessment & Plan (1) Generalized weakness: Plan: -2nd to COVID -syptomatic treatment -PT/OT evaluation pending (2) COVID: Plan: -without hypoxia -Mucinex -Tessalon -duonebs prn -tylenol -supplemental 02 as needed (3) Hypothyroidism: Plan: -levothyroxine (4) Hypertension: Plan: -metoprolol Plan Heparin SQ for DVT px Admission and Anticipated Discharge Date Admission Date: May 21, 2025 Subjective No events overnight. Pt resting comfortably in bed. State her cough and breathing has improved. Review of Systems Review of Systems: CONST: Negative for fever, body aches and chills. HENT: Negative for neck pain/stiffness, headache, congestion, sore throat, swelling. EYES: Negative for discharge/pain or vision changes. RESP: + cough/hemoptysis and + shortness of breath. CV: Negative chest pain, difficulty breathing, palpitations. ABD: Negative pain, nausea, vomiting. : Negative increase frequency, dysuria, blood in urine or stool. MUSC: Negative for muscle aches, edema. SKIN: Negative rash, lesions/sores. NEURO: Negative headache, dizziness, weakness. Physical Exam Physical Exam: GENERAL APPEARANCE NAD, activity normal for age, well developed/ well nourished, no cyanosis, pallor, or diaphoresis. EYES lids/conjunctiva normal. EARS/NOSE/THROAT Mucous membranes moist, nares normal, lips/teeth normal uvula midline without oral pharyngeal erythema, exudate or swelling TMs normal bilaterally. No lymphangitis/lymphedema. HEAD/NECK normocephalic atraumatic, no facial trauma, neck is supple. RESPIRATORY respiratory effort normal, speaks in full sentences, no tripod position, no accessory muscle use. Lungs clear to auscultation without rhonchi, wheezes, rales CARDIAC Regular rate and rhythm, no edema. ABDOMINAL Soft, ND/NT. No evidence of fluid wave. No pulsatile masses on exam, rebound tenderness, Tabares sign or pain over Mcburney's point. MUSCLES/EXTREMITIES No abnormal range of motion, no swelling. SKIN Warm, pink and dry. No rashes, dermatoses, petechiae or lesions. NEUROLOGICAL Speech is clear and appropriate. Normal level of consciousness. Gait and coordination are normal. 5/5 strength in all extremities. PSYCH Normal mood and affect. Judgement/competence is appropriate Results & Data Results & Data Vital Signs (Past 12 Hours) Vital Signs Temp Pulse Resp BP Pulse Ox O2 Del Method 05/22/25 08:21 36.5 C 54 L 18 152/80 H 94 Room Air 05/22/25 03:05 152/79 H 05/22/25 02:59 36.4 C L 61 18 161/82 H 95 Room Air 05/21/25 22:15 36.5 C 69 17 152/76 H 96 Room Air PG Care Time/CCT Total # of Minutes Spent Total Time Spent with Patient: Total time spent is greater than 50% in coordination of care (as documented) at patient's floor/unit and/or counseling patient: Coding Level of Care Code 88669 SUB INP/OBS CARE 2/35MIN Diagnoses Generalized weakness R53.1 COVID U07.1 Hypothyroidism E03.9 Hypertension I10 Hypertension type: unspecified (4) Hypertension Hypertension type: unspecified Qualified Code(s): I10 - Essential (primary) hypertension
[2025-05-22] MEDS: COUGH DROP (SUGAR FREE) LOZ 24 LOZ/1 BOX BUCCAL PRN (20:51)
[2025-05-23 06:48] LABS: Hematocrit (blood only) 37.2 % (37.0-47.0); Hemoglobin 12.8 g/dL (12.0-16.0); Mean Corpuscular Hemoglobin 33.8 pg (25.0-34.0); Mean Corpuscular Volume 98.2 fL (80.0-100.0); Platelet Count 172 K/uL (130-400); RDW Standard Deviation 51.9 fL (36.4-46.3); Red Blood Count 3.79 M/uL (4.20-5.40); White Blood Count 5.79 K/ul (4.8-10.8)
[2025-05-23 07:12] LABS: Anion Gap 6.0 (3-11); Blood Urea Nitrogen 10.0 mg/dl (6-23); Calcium 8.0 mg/dl (8.6-10.3); Carbon Dioxide 24.0 mmol/L (21-32); Chloride 112.0 mmol/L (98-107); Creatinine Clr Calc Pharmacy 79.0 ml/min; Glucose 82.0 mg/dl (70-99(Fasting)); Potassium 3.8 mmol/L (3.5-5.1); Sodium 142.0 mmol/L (136-145)
--- NOTE | 2025-05-23 09:45 | Hospitalist Progress Note ---
Date of Service May 23, 2025 Assessment & Plan (1) Generalized weakness: Plan: -2nd to COVID -syptomatic treatment -PT/OT recommending rehab -family would like to take patient home -will observe for return to baseline activity status while in patient -expect d/c in 24-48hrs (2) COVID: Plan: -without hypoxia -Mucinex -Tessalon -duonebs prn -tylenol -supplemental 02 as needed (3) Hypothyroidism: Plan: -levothyroxine (4) Hypertension: Plan: -metoprolol Plan Heparin SQ for DVT px Admission and Anticipated Discharge Date Admission Date: May 21, 2025 Subjective No events overnight. Review of Systems Review of Systems: CONST: Negative for fever, body aches and chills. HENT: Negative for neck pain/stiffness, headache, congestion, sore throat, swelling. EYES: Negative for discharge/pain or vision changes. RESP: + cough/hemoptysis and + shortness of breath. CV: Negative chest pain, difficulty breathing, palpitations. ABD: Negative pain, nausea, vomiting. : Negative increase frequency, dysuria, blood in urine or stool. MUSC: Negative for muscle aches, edema. SKIN: Negative rash, lesions/sores. NEURO: Negative headache, dizziness, weakness. Physical Exam Physical Exam: GENERAL APPEARANCE NAD, activity normal for age, well developed/ well nourished, no cyanosis, pallor, or diaphoresis. EYES lids/conjunctiva normal. EARS/NOSE/THROAT Mucous membranes moist, nares normal, lips/teeth normal uvula midline without oral pharyngeal erythema, exudate or swelling TMs normal bilaterally. No lymphangitis/lymphedema. HEAD/NECK normocephalic atraumatic, no facial trauma, neck is supple. RESPIRATORY respiratory effort normal, speaks in full sentences, no tripod position, no accessory muscle use. Lungs clear to auscultation without rhonchi, wheezes, rales CARDIAC Regular rate and rhythm, no edema. ABDOMINAL Soft, ND/NT. No evidence of fluid wave. No pulsatile masses on exam, rebound tenderness, Tabares sign or pain over Mcburney's point. MUSCLES/EXTREMITIES No abnormal range of motion, no swelling. SKIN Warm, pink and dry. No rashes, dermatoses, petechiae or lesions. NEUROLOGICAL Speech is clear and appropriate. Normal level of consciousness. Gait and coordination are normal. 5/5 strength in all extremities. PSYCH Normal mood and affect. Judgement/competence is appropriate Results & Data Results & Data Vital Signs (Past 12 Hours) Vital Signs Temp Pulse Pulse Resp BP Pulse Ox O2 Del Method 05/23/25 08:17 36.8 C 56 L 17 127/72 96 Room Air 05/23/25 07:43 54 L 05/23/25 03:45 36.7 C 53 L 18 155/71 H 97 Room Air 05/22/25 22:38 36.5 C 85 18 148/82 H 96 Room Air 05/22/25 22:22 58 L PG Care Time/CCT Total # of Minutes Spent Total Time Spent with Patient: Total time spent is greater than 50% in coordination of care (as documented) at patient's floor/unit and/or counseling patient: Coding Level of Care Code 46346 SUB INP/OBS CARE 2/35MIN Diagnoses Generalized weakness R53.1 COVID U07.1 Hypothyroidism E03.9 Hypertension I10 Hypertension type: unspecified (4) Hypertension Hypertension type: unspecified Qualified Code(s): I10 - Essential (primary) hypertension
[2025-05-23 11:38] VITALS: BP 154/73; PULSE 55; RESP 20; TEMP 98.1; O2SAT 91
--- NOTE | 2025-05-23 13:31 | Discharge Summary ---
Discharge Summary Date of Service May 23, 2025 Principal Dx & Hospital Course #1 = Principal Diagnosis (1) Generalized weakness: -2nd to COVID -syptomatic treatment -PT/OT recommending rehab -family would like to take patient home -will observe for return to baseline activity status while in patient -patient now baseline as per family, who request d/c home. (2) COVID: -without hypoxia -Mucinex -Tessalon -duonebs prn -tylenol -supplemental 02 as needed (3) Hypothyroidism: -levothyroxine (4) Hypertension: -metoprolol Plan Heparin SQ for DVT px Admission HPI Per Admitting Provider Pt is a 79 y/o female with pmh of HTN, hypothyroidism who presents with 1 week of chest congestion,SOB,cough, and weakness. Pt was seen at an urgent care and given augmentin without any improvement in symptoms. In the ER patient had normal WBC, CXR with no infiltrates, at was found to be COVID +. Pt not hypoxic or tachypneic. Pt's family concerned she is too week to go home due to her symptoms. Pt will be admitted for further symptomatic treatment of her COVID and have PT evaluation for ambulatory dysfunction 2nd to weakness. Discharge Exam GENERAL APPEARANCE NAD, activity normal for age, well developed/ well nourished, no cyanosis, pallor, or diaphoresis. EYES lids/conjunctiva normal. EARS/NOSE/THROAT Mucous membranes moist, nares normal, lips/teeth normal uvula midline without oral pharyngeal erythema, exudate or swelling TMs normal bilaterally. No lymphangitis/lymphedema. HEAD/NECK normocephalic atraumatic, no facial trauma, neck is supple. RESPIRATORY respiratory effort normal, speaks in full sentences, no tripod position, no accessory muscle use. Lungs clear to auscultation without rhonchi, wheezes, rales CARDIAC Regular rate and rhythm, no edema. ABDOMINAL Soft, ND/NT. No evidence of fluid wave. No pulsatile masses on exam, rebound tenderness, Tabares sign or pain over Mcburney's point. MUSCLES/EXTREMITIES No abnormal range of motion, no swelling. SKIN Warm, pink and dry. No rashes, dermatoses, petechiae or lesions. NEUROLOGICAL Speech is clear and appropriate. Normal level of consciousness. Gait and coordination are normal. 5/5 strength in all extremities. PSYCH Normal mood and affect. Judgement/competence is appropriate Discharge Plan Discharge Items Patient Disposition: Home - Self-Care Reason For Visit: COUGH, CHEST CONGESTION, WEAKNESS Discharge Diagnosis: COVID Condition on Discharge: Fair Activity: Resume your previous activity Non-emergency contact: Primary Care Provider Call non-emergency contact if: you have any medication questions Follow-up/Referrals: Fatemeh Cooper MD [Primary Care Provider] - 05/30/25 3:00 pm Diet: Regular Addtl Attending Provider Instructions: Follow up with PMD in 1 week Pending Studies at Discharge: No Stand-Alone Forms: My [facility] [employer], Smoking Cessation Medications and DC Order Prescriptions: New benzonatate 100 mg Capsule 100 mg PO Q8H PRN (Reason: cough) Qty: 30 0RF guaifenesin [Mucinex] 600 mg Tablet Extended Release 12hr 600 mg PO Q12 Qty: 30 0RF Continued cholecalciferol (vitamin D3) 125 mcg (5,000 unit) capsule 125 mcg PO DAILY Qty: 30 0RF levothyroxine [Synthroid] 75 mcg tablet 75 mcg PO QAM Qty: 90 2RF Rx Instructions: brand name only methenamine hippurate 1 gram tablet 1 g PO BID Qty: 60 2RF Rx Instructions: for UTI prevention metoprolol succinate 25 mg tablet extended release 24 hr 12.5 mg PO DAILY Qty: 45 3RF memantine 10 mg tablet 10 mg PO BID Qty: 60 5RF cyanocobalamin (vitamin B-12) 1,000 mcg/mL solution 1,000 mcg IM MONTHLY Rx Instructions: Inject IM 1 mL once monthly. Discharge Orders: Discharge Order (Routine); Ordered 05/23/25 Ordered By: Bishop Hinton Admission Data Admit Date/Time: 05/21/25 15:02 Attending Provider: Bishop Hinton Admit Provider: Bishop Hinton Primary Care Provider: Fatemeh Cooper V. Other Providers: Bishop Hinton Hospital Stay Data Consultations 05/21/25 15:01 ED Decision to Admit Stat Pending Results Patient Have Any Pending Studies at Discharge: No Discharge Instructions Given to Patient (Per Discharging Provider) Follow up with PMD in 1 week Total Time Total Time Spent Total Time Spent (In Minutes): 50 Coding Level of Care Code 24548 INP/OBS DISCH >30 MIN Diagnoses Generalized weakness R53.1 COVID U07.1 Hypothyroidism E03.9 Hypertension I10 Hypertension type: unspecified
--- NOTE | 2025-05-25 06:04 | Electrocardiogram Report ---
Test Reason : Blood Pressure : */* mmHG Vent. Rate : 63 BPM Atrial Rate : 63 BPM P-R Int : 142 ms QRS Dur : 88 ms QT Int : 460 ms P-R-T Axes : 96 44 93 degrees QTcB Int : 470 ms Poor data quality, interpretation may be adversely affected Sinus rhythm with Premature supraventricular complexes Minimal voltage criteria for LVH, may be normal variant ( [place] product ) Abnormal ECG When compared with ECG of 10-Apr-2024 17:47, No significant change Confirmed by Rashid Heaton ([id number]) on 05/25/2025 6:04:28 AM Referred By: REFERRED SELF Confirmed By: Rashid Heaton
[2025-05-28] MEDS ORDERED: CYANOCOBALAMIN 1000 MCG/ML VIAL IM SCH (09:00)
== END 2025-05-23 16:14 | disposition home or self-care (01) ==
LOC: SUATTDRO → ED 11:05 → 2W 15:02 → INTOOBSV 15:02 → 2W 19:13